=== PATIENT | male | born 1980 | race African-American/Black ===

== ENCOUNTER 2019-07-19 19:53 | Outpatient (CLI) | payer MEDICARE, MEDICAID ==
[~2019-07-19 19:53] MED LIST: ACETAMINOPHEN 325 MG TABLET PO PRN; DIPHENHYDRAMINE HCL 25 MG CAPSULE PO PRN; FUROSEMIDE INJ/PF 20 MG/2 ML SDV IV PRN
[2019-07-19] MEDS ORDERED: ACETAMINOPHEN 325 MG TABLET PO PRN (21:19)
[2019-07-19] MEDS ORDERED: DIPHENHYDRAMINE HCL 25 MG CAPSULE PO PRN (21:20)
[2019-07-19] MEDS ORDERED: FUROSEMIDE INJ/PF 40 MG/4 ML SDV IV PRN (21:21)
[2019-07-19 21:38] LABS: HEMATOCRIT 19.1 % (37.9-51.0); MEAN CORPUSCULAR HEMOGLOBIN 30.1 pg (27.0-33.4); MEAN CORPUSCULAR HGB CONC 33.3 g/dL (32.0-36.0); MEAN CORPUSCULAR VOLUME 91 fl (80-97); PLATELET COUNT 180 10^3/uL (150-450); RED BLOOD COUNT 2.11 10^6/uL (4.35-5.55); RED CELL DISTRIBUTION WIDTH 15.4 % (11.5-14.0); WHITE BLOOD COUNT 7.4 10^3/uL (4.0-10.5)
[2019-07-19 21:43] LABS: HEMOGLOBIN 6.4 g/dL (13.5-17.0)
[2019-07-20] MEDS ORDERED: FUROSEMIDE INJ/PF 40 MG/4 ML SDV ONE (03:26)
[2019-07-20 08:45] VITALS: BP 152/95
== END 2019-07-20 10:29 | disposition home or self-care (01) ==
LOC: SP 19:53 → UNDOADMIN 20:15 → EH 20:15 → 4W 20:17 → EH 20:17 → 4W 21:39 → SP 07-20 10:29
PROVIDERS: ATTEND Internal Medicine Nephrology
DX: N18.6 End stage renal disease (principal); D63.1 Anemia in chronic kidney disease
CPT/HCPCS: 86900; 86901; 36415; 36430; 86850; 86920; 96374; P9016; J1940

== ENCOUNTER 2019-08-06 12:52 | Inpatient (IN) | payer MEDICARE, MEDICAID ==
[2019-08-06] MEDS: MIDAZOLAM 2 MG/2 ML INJ ONE ×2 (10:55→22:55)
[2019-08-06 13:27] LABS: MEAN CORPUSCULAR HEMOGLOBIN 30.2 pg (27.0-33.4); MEAN CORPUSCULAR HGB CONC 33.1 g/dL (32.0-36.0); MEAN CORPUSCULAR VOLUME 91 fl (80-97); PLATELET COUNT 119 10^3/uL (150-450); RED BLOOD COUNT 2.53 10^6/uL (4.35-5.55); WHITE BLOOD COUNT 15.1 10^3/uL (4.0-10.5)
[2019-08-06] MEDS ORDERED: ASPIRIN 81 MG TABLET, CHEWABLE PO ONE (13:29)
[2019-08-06 13:33] LABS: HEMOGLOBIN 7.6 g/dL (13.5-17.0)
[2019-08-06] MEDS ORDERED: ONDANSETRON HCL INJ/PF 4 MG/2 ML SDV IV ONE (13:35)
--- NOTE | 2019-08-06 13:36 | ER Document Report ---
ED Cardiac - General Chief Complaint: Chest Pain Stated Complaint: CHEST PAIN Time Seen by Provider: 08/06/19 13:17 Notes: Patient is a 39-year-old male who presents to the emergency department with a chief complaint of chest pain. Patient states that his chest pain is in the mid left side of his chest. It does not radiate. Patient has had a cough for the past 2 to 3 days. He denies any fever. Patient is a dialysis patient and he missed last Tuesday's dialysis. He went into dialysis today and due to his blood pressure being elevated, he was referred here to the emergency department. Patient also states that he is short of breath. He did vomit once. His oxygen saturation via EMS was 88 on room air. He was placed on 3 L nasal cannula and his oxygen saturation came up. Patient does not wear oxygen on daily basis. TRAVEL OUTSIDE OF THE [place] IN LAST 30 DAYS: No - Related Data Allergies/Adverse Reactions: No Known Drug Allergies Allergy (Verified 04/06/19 03:30) Past Medical History - General Information source: Patient - Social History Smoking Status: Unknown if Ever Smoked Family History: Reviewed & Not Pertinent - Past Medical History Cardiac Medical History: Reports: Hx Congestive Heart Failure Endocrine Medical History: Reports: Hx Diabetes Mellitus Type 1, Hx Diabetes Mellitus Type 2 Renal/ Medical History: Reports: Hx End Stage Renal Disease, Hx Peritoneal Dialysis Past Surgical History: Reports: Hx Vascular Surgery - Left antecubital graft Review of Systems - Review of Systems Notes: REVIEW OF SYSTEMS: CONSTITUTIONAL : Denies recent illness. Denies recent unintentional weight loss. Denies fever, chills, or sweats. EENT: Denies eye, ear, throat, or mouth pain, discharge, or symptoms. Denies nasal or sinus congestion. CARDIOVASCULAR: See HPI. RESPIRATORY: See HPI. GASTROINTESTINAL: See HPI. GENITOURINARY: Denies difficulty urinating, burning, blood in urine, urgency or frequency. MUSCULOSKELETAL: Denies neck and back pain. Denies joint pain or swelling. SKIN: Denies rash, itchiness, or lesions HEMATOLOGIC : Denies easy bruising or bleeding. LYMPHATIC: Denies swollen, painful, enlarged glands. NEUROLOGICAL: Denies no numbness or tingling denies weakness. Denies headache. Denies altered mental status. Denies alteration in speech. PSYCHIATRIC: Denies stress, anxiety, alteration in sleep patterns, or depression. All other systems reviewed and negative. Physical Exam - Vital signs Vitals: Pulse Ox 89 L 08/06/19 13:03 - Notes Notes: PHYSICAL EXAMINATION: GENERAL: Appears well, healthy, well-nourished, mild distress. HEAD: Normocephalic, atraumatic. EYES: PERRL, conjunctiva normal, all extraocular movements intact, sclera nonicteric ENT: Moist mucous membranes. NECK: Supple, no noticeable swelling, redness, rash. Normal range of motion. LUNGS: Diminished breath sounds in the bases. CARDIOVASCULAR: S1-S2, regular rate, regular rhythm. Radial pulses 2+, normal. ABDOMEN: Normoactive bowel sounds. Soft, nontender, no guarding, no rebound tenderness, and no masses palpated. EXTREMITIES: Normal strength and range of motion, no pitting or edema. No cyanosis. NEUROLOGICAL: Moves all extremities upon command. Strength 5/5 in all extremities. PSYCH: Normal mood, normal affect. SKIN: Warm, dry. No rash, lesions, ulcerations noted. Normal skin turgor. Course - Re-evaluation Re-evalutation: 08/06/19 14:25 Patient's hematology shows a leukocytosis of 15,000. Due to him having possible infiltrates on chest x-ray, will treat him with antibiotics. Troponin is unrema rkable. Patient hemoglobin is 7.6 and hematocrit is 23. Patient with a blood transfusion during dialysis today. His chemistries show hyperkalemia potassium of 5.7. This is most likely due to him missing his dialysis. His creatinine and BUN are elevated, as he has end-stage renal disease. 08/06/19 14:[address] Rai, the clay worker. Patient would be dialyzed today. I then subsequently spoke with Dr. Chirinos. Patient will be admitted. - Vital Signs Vital signs: Temp Pulse Resp BP Pulse Ox 100.0 F 87 16 185/89 H 95 08/07/19 08:00 08/07/19 08:50 08/07/19 08:50 08/07/19 08:47 08/07/19 08:50 - Laboratory Result Diagrams: 08/07/19 05:24 08/07/19 05:24 Laboratory results interpreted by me: 08/06/19 08/06/19 08/06/19 13:05 13:05 13:05 WBC 15.1 H RBC 2.53 L Hgb 7.6 L Hct 23.0 L RDW 16.0 H Plt Count 119 L Seg Neuts % (Manual) 96 H Lymphocytes % (Manual) 0 L Abs Neuts (Manual) 14.5 H Abs Lymphs (Manual) 0.0 L ABG pH ABG pO2 ABG HCO3 ABG Total CO2 ABG O2 Saturation Potassium 5.7 H Carbon Dioxide 19 L BUN 102 H Creatinine 15.64 H Est GFR ( Amer) 4 L Est GFR (MDRD) Non-Af 3 L Glucose 144 H Calcium 8.3 L Direct Bilirubin 0.6 H Creatine Kinase 770 H NT-Pro-B Natriuret Pep 08/06/19 08/06/19 13:05 14:41 WBC RBC Hgb Hct RDW Plt Count Seg Neuts % (Manual) Lymphocytes % (Manual) Abs Neuts (Manual) Abs Lymphs (Manual) ABG pH 7.31 L ABG pO2 62.0 L ABG HCO3 18.0 L ABG Total CO2 19.2 L ABG O2 Saturation 90.0 L Potassium Carbon Dioxide BUN Creatinine Est GFR ( Amer) Est GFR (MDRD) Non-Af Glucose Calcium Direct Bilirubin Creatine Kinase NT-Pro-B Natriuret Pep 10380 H - EKG Interpretation by Me Additional EKG results interpreted by me: 08/06/19 14:03 Sinus rhythm. Rate 83. CT 156; QRS 86; QT 392; QTc 461. No ST elevations or depressions noted. No acute change from previous EKG dated 04/06/2019. Discharge - Discharge Clinical Impression: End-stage renal disease on hemodialysis Pneumonia Qualifiers: Pneumonia type: due to unspecified organism Laterality: unspecified laterality Lung location: unspecified part of lung Qualified Code(s): J18.9 - Pneumonia, unspecified organism Condition: Stable Disposition: ADMITTED INPATIENT Admitting Provider: Taran (Hospitalist) Unit Admitted: Telemetry
[2019-08-06 13:49] LABS: ABSOLUTE MONOCYTES # (MANUAL) 0.6 10^3/uL (0.1-1.4); ANISOCYTOSIS 1+; BASOPHILS % (MANUAL) 0 % (0-2); EOSINOPHILS % (MANUAL) 0 % (0-6); LYMPHOCYTES % (MANUAL) 0 % (13-45); MONOCYTES % (MANUAL) 4 % (3-13); POIKILOCYTOSIS 1+; SEGMENTED NEUTROPHILS % (MAN) 96 % (42-78); TOTAL CELLS COUNTED 100
[2019-08-06 13:50] LABS: BURR CELLS 1+; OVALOCYTES 1+; PLATELET COMMENT DECREASED
[2019-08-06 13:54] LABS: ALBUMIN 4.2 g/dL (3.5-5.0); ALKALINE PHOSPHATASE 63 U/L (38-126); ANION GAP 19 (5-19); ASPARTATE AMINO TRANSFERASE 26 U/L (17-59); BILIRUBIN,DIRECT 0.6 mg/dL (0.0-0.4); BILIRUBIN,TOTAL 0.7 mg/dL (0.2-1.3); BLOOD UREA NITROGEN 102 mg/dL (7-20); CALCIUM 8.3 mg/dL (8.4-10.2); CARBON DIOXIDE 19 mmol/L (22-30); CHLORIDE 104 mmol/L (98-107); GLUCOSE 144 mg/dL (75-110); POTASSIUM 5.7 mmol/L (3.6-5.0); TOTAL PROTEIN 7.3 g/dL (6.3-8.2)
--- NOTE | 2019-08-06 14:05 | RADIOLOGY REPORT (SQ) ---
EXAM DESCRIPTION: CHEST SINGLE VIEW COMPLETED DATE/TIME: 08/06/2019 1:51 pm REASON FOR STUDY: cough; shortness of breath COMPARISON: AP view of the chest from 04/06/2019. EXAM PARAMETERS: NUMBER OF VIEWS: One view. TECHNIQUE: Single frontal radiographic view of the chest acquired. RADIATION DOSE: NA LIMITATIONS: None. FINDINGS: LUNGS AND PLEURA: Acute patchy bilateral and bibasilar predominant parenchymal opacities. There is no sizable pleural effusion or pneumothorax. MEDIASTINUM AND HILAR STRUCTURES: No mediastinal hilar contour abnormality. HEART AND VASCULAR STRUCTURES: Stable cardiomegaly. The pulmonary vasculature is distended. BONES: No acute findings. HARDWARE: The tip of the tunneled right IJ hemodialysis catheter projects at the level of the cavoatr ial junction. OTHER: Low inspiratory lung volumes. IMPRESSION: Acute patchy bilateral and basilar predominant parenchymal opacities. Differential cons iderations include pulmonary edema multifocal pneumonia. TECHNICAL DOCUMENTATION: JOB ID: [id number] [employer]- All Rights Reserved Reading location - IP/workstation name: [email or web address]
[2019-08-06] MEDS ORDERED: LEVOFLOXACIN 750 MG/D5W RTU 750 MG/150 ML RTUPB IV ONE (14:32)
[2019-08-06] MEDS ORDERED: MAGNESIUM HYDROXIDE SUSP 30 ML UDCUP PO PRN (14:57)
[2019-08-06] MEDS ORDERED: ZOLPIDEM TARTRATE 5 MG TABLET PO PRN (14:57)
[2019-08-06] MEDS ORDERED: ACETAMINOPHEN 325 MG TABLET PO PRN (14:57)
[2019-08-06] MEDS ORDERED: ALBUTEROL SULFATE 0.083% NEB 2.5 MG/3 ML AMPUL NEB PRN (14:57)
[2019-08-06] MEDS ORDERED: OXYCODONE-ACETAMINOPHEN 5-325 MG TABLET PO PRN (14:57)
[2019-08-06] MEDS ORDERED: MAG HYDROX/AL HYDROX/SIMETH SUSP 30 ML UDCUP PO PRN (14:57)
[2019-08-06] MEDS ORDERED: ONDANSETRON HCL INJ/PF 4 MG/2 ML SDV IV PRN (14:57)
--- NOTE | 2019-08-06 15:07 | EKG REPORT ---
SEVERITY:- BORDERLINE ECG - SINUS RHYTHM PROBABLE LEFT ATRIAL ABNORMALITY : Confirmed by: Eve Art MD 06-Aug-2019 15:07:10
--- NOTE | 2019-08-06 15:10 | PDOC H&P ---
History of Present Illness Admission Date/PCP: 08/06/19 14:51 Dr. Rai Patient complains of: Shortness of breath, chest pain History of Present Illness: BROOK LOMBARDI is a 39 year old male who presented to the ER with achievement of chest pain. Patient 39-year-old who has end-stage renal disease requiring hemodialysis and states he had a cough for the last 2 to 3 days. His chest pain is reproducible he denies any fever or other complaints. Patient did miss dialysis this past Tuesday was found to have an O2 sat of 88% on room air via EMS. Patient does not wear oxygen on a daily basis. Patient is noncompliant with medical regimen. No treatment prior to arrival all activities been aggravating factor. Past Medical History Cardiac Medical History: Reports: Congestive Heart Failure Endocrine Medical History: Reports: Diabetes Mellitus Type 1, Diabetes Mellitus Type 2 Renal/ Medical History: Reports: End Stage Renal Disease Hematology: Reports: Anemia Past Surgical History Past Surgical History: Reports: Vascular Surgery - Left antecubital graft Social History Information Source: Patient Lives with: Family Smoking Status: Never Smoker Electronic Cigarette use?: No Frequency of Alcohol Use: None Hx Recreational Drug Use: No Drugs: None Hx Prescription Drug Abuse: No - Advance Directive Resuscitation Status: Full Code Family History Family History: DM, Hypertension Parental Family History Reviewed: Yes Children Family History Reviewed: Yes Sibling(s) Family History Reviewed.: Yes Medication/Allergy Home Medications: Albuterol Sulfate [Proair HFA Inhalation Aerosol 8.5 gm MDI] 1 puff IH QIDP PRN 04/06/19 B,C/Ferrous Fum/FA/D3/Zinc Ox [Prorenal Multivitamin Tablet] 1 tab PO DAILY 04/06/19 Cyanocobalamin (Vitamin B-12) [Vitamin B-12 1000 mcg Tablet] 1 tab PO DAILY 04/06/19 Lidocaine/Prilocaine [Emla Cream] 1 applic TP MOWEFR@0800 04/06/19 Nitroglycerin [Nitrostat 0.4 mg (1/150 Gr) Tabs 25/Bottle] 1 tab SL Q5MP PRN 04/06/19 Acetaminophen [Tylenol 325 mg Tablet] 650 mg PO Q4HP PRN tablet 04/07/19 Amlodipine Besylate [Norvasc 10 mg Tablet] 10 mg PO DAILY #30 tablet 08/03/19 Aspirin [Aspirin 81 mg Chewable Tablet] 81 mg PO DAILY #90 tab.chew 04/07/19 Calcium Acetate [Phoslo 667 mg Capsule] 667 mg PO MEALS #90 capsule 04/07/19 Carvedilol [Coreg 25 mg Tablet] 1 tab PO Q12 #60 tablet 04/07/19 Cinacalcet HCl [Sensipar 30 mg Tablet] 30 mg PO WSUPPER #30 tablet 04/07/19 Clonidine HCl [Catapres 0.1 mg Tablet] 0.1 mg PO Q6 #120 tablet 04/07/19 Docusate Sodium [Colace 100 mg Capsule] 100 mg PO BID capsule 04/07/19 Hydralazine HCl [Apresoline 25 mg Tablet] 50 mg PO Q6 #240 tablet 04/07/19 Isosorbide Mononitrate [Imdur 60 mg Tablet.er] 120 mg PO DAILY #30 tab.er.24h 04/07/19 Sucroferric Oxyhydroxide [Velphoro] 1,000 mg PO MEALS #90 tab.chew 04/07/19 Valsartan [Diovan] 320 mg PO DAILY #30 tablet 04/07/19 Allergies/Adverse Reactions: No Known Drug Allergies Allergy (Verified 04/06/19 03:30) Review of Systems Constitutional: ABSENT: chills, fever(s), headache(s), weight gain, weight loss Eyes: ABSENT: visual disturbances Ears: ABSENT: hearing changes Cardiovascular: PRESENT: chest pain. ABSENT: dyspnea on exertion, edema, orthropnea, palpitations Respiratory: PRESENT: cough, dyspnea, sputum. ABSENT: hemoptysis Gastrointestinal: ABSENT: abdominal pain, constipation, diarrhea, hematemesis, hematochezia, nausea, vomiting Genitourinary: ABSENT: dysuria, hematuria Musculoskeletal: ABSENT: joint swelling Integumentary: ABSENT: rash, wounds Neurological: ABSENT: abnormal gait, abnormal speech, confusion, dizziness, focal weakness, syncope Psychiatric: ABSENT: anxiety, depression, homidical ideation, suicidal ideation Endocrine: ABSENT: cold intolerance, heat intolerance, polydipsia, polyuria Hematologic/Lymphatic: ABSENT: easy bleeding, easy bruising Physical Exam Vital Signs: Temp Pulse Resp BP Pulse Ox 20 129/118 H 92 08/06/19 13:07 08/06/19 14:01 08/06/19 14:01 Intake & Output 08/05/19 08/06/19 08/07/19 06:59 06:59 06:59 Weight 117.934 kg General appearance: PRESENT: no acute distress, well-developed, well-nourished Head exam: PRESENT: atraumatic, normocephalic Eye exam: PRESENT: conjunctiva pink, EOMI, PERRLA. ABSENT: scleral icterus Ear exam: PRESENT: normal external ear exam Mouth exam: PRESENT: moist, tongue midline Neck exam: ABSENT: carotid bruit, JVD, lymphadenopathy, thyromegaly Respiratory exam: PRESENT: decreased breath sounds, rales, rhonchi, symmetrical, tachypnea, unlabored. ABSENT: wheezes Cardiovascular exam: PRESENT: RRR. ABSENT: diastolic murmur, rubs, systolic murmur Pulses: PRESENT: normal dorsalis pedis pul Vascular exam: PRESENT: normal capillary refill GI/Abdominal exam: PRESENT: normal bowel sounds, soft. ABSENT: distended, guarding, mass, organolmegaly, rebound, tenderness Rectal exam: PRESENT: deferred Extremities exam: PRESENT: full ROM. ABSENT: calf tenderness, clubbing, pedal edema Neurological exam: PRESENT: alert, awake, oriented to person, oriented to place, oriented to time, oriented to situation, CN II-XII grossly intact. ABSENT: motor sensory deficit Psychiatric exam: PRESENT: appropriate affect, normal mood. ABSENT: homicidal ideation, suicidal ideation Skin exam: PRESENT: dry, intact, warm. ABSENT: cyanosis, rash Results Laboratory Results: 08/06/19 13:05 08/06/19 13:05 08/06/19 08/06/19 08/06/19 13:05 13:05 13:05 WBC 15.1 H RBC 2.53 L Hgb 7.6 L Hct 23.0 L MCV 91 MCH 30.2 MCHC 33.1 RDW 16.0 H Plt Count 119 L Seg Neutrophils % Not Reportable Sodium 142.2 Potassium 5.7 H Chloride 104 Carbon Dioxide 19 L Anion Gap 19 BUN 102 H Creatinine 15.64 H Est GFR ( Amer) 4 L Glucose 144 H Calcium 8.3 L Total Bilirubin 0.7 AST 26 Alkaline Phosphatase 63 Total Protein 7.3 Albumin 4.2 Lipase 97.6 12/02/19 12/02/19 12/02/19 13:05 13:05 13:05 Creatine Kinase 770 H Troponin I 0.052 NT-Pro-B Natriuret Pep 98504 H Impressions: Chest X-Ray 08/06/19 13:28 IMPRESSION: Acute patchy bilateral and basilar predominant parenchymal opacities. Differential considerations include pulmonary edema multifocal pneumonia. Assessment and Plan - Diagnosis (1) Healthcare-associated pneumonia Is this a current diagnosis for this admission?: Yes Plan: 08/06/2019-as patient is a hemodialysis patient I will place patient on healthcare associated pneumonia protocol including vancomycin and Zosyn per pharmacy dosing. Will await cultures. Bronchodilators every 4 hours as needed. Duo nebs every 12 hours. I do not suspect he needs steroids at this time so we will hold these. Patient will be dialyzed today in hopes that this will take care of his congestive heart failure and make breathing easier. (2) End-stage renal disease on hemodialysis Is this a current diagnosis for this admission?: Yes Plan: 08/06/2019-dialysis today be followed by Dr. Rai (3) Anemia Is this a current diagnosis for this admission?: Yes Plan: 08/06/2019-chronic stable no symptomology at this time. (4) Atypical chest pain Is this a current diagnosis for this admission?: Yes Plan: 08/06/2019-costochondral in nature. Will follow (5) Uncontrolled hypertension Is this a current diagnosis for this admission?: Yes Plan: 08/06/2019-patient takes a wide variety of home antihypertensives. We will continue all. (6) Hyperkalemia Is this a current diagnosis for this admission?: Yes Plan: 08/06/2019-dialysis day repeat BMP in a.m. - Time Time Spent with patient: 35 or more minutes - Inpatient Certification Based on my medical assessment, after consideration of the patient's comorbidities, presenting symptoms, or acuity I expect that the services needed warrant INPATIENT care.: Yes I certify that my determination is in accordance with my understanding of Medicare's requirements for reasonable and necessary INPATIENT services [42 CFR 412.3e].: Yes Medical Necessity: Significant Comorbidiites Make Outpatient Treatment Too Risky, Need Close Monitoring Due to Risk of Patient Decompensation, Need for IV Antibiotics
[2019-08-06] MEDS ORDERED: VANCOMYCIN HCL 0 MG in DEXTROSE 5%-WATER 250 ML IV NR (15:15)
[2019-08-06 15:22] LABS: ARTERIAL BLOOD BASE EXCESS -7.5 mmol/L; ARTERIAL BLOOD PCO2 36.5 mmHg (35-45); ARTERIAL BLOOD PH 7.31 (7.35-7.45); ARTERIAL BLOOD TOTAL CO2 19.2 mmol/L (23-27)
[2019-08-06 15:29] LABS: ARTERIAL BLOOD FIO2 3LNC
[2019-08-06] MEDS ORDERED: EPOETIN ALFA-EPBX 2,000 UNIT, EPOETIN ALFA-EPBX 3,000 UNIT, EPOETIN ALFA-EPBX 20,000 UN... IV PRN ×4 (15:57)
[2019-08-06] MEDS ORDERED: ACETAMINOPHEN 325 MG TABLET PO ONE (17:45)
[2019-08-06] MEDS ORDERED: PIPERACILLIN SODIUM/TAZOBACTAM 3.375 GM in NORMAL SALINE 100 ML IV SCH (18:00)
[2019-08-06] MEDS ORDERED: PIPERACILLIN SODIUM/TAZOBACTAM 2.25 GM in NORMAL SALINE 50 ML IV SCH ×2 (18:00→23:00)
[2019-08-06] MEDS ORDERED: CLONIDINE HCL 0.1 MG TABLET PO ONE (18:15)
[2019-08-06] MEDS ORDERED: HEPARIN SOD (PORCINE) 1,000 UNIT/ML 10 ML VIAL IV PRN (18:38)
--- NOTE | 2019-08-06 18:46 | PDOC CONSULTATION ---
Consultation Consult Date: 08/06/19 Provider Consulted: [place] PAT Consult reason:: ESRD for hemodialysis in the setting of heart failure/bronchopneumonia History of Present Illness Admission Date/PCP: 08/06/19 14:51 History of Present Illness: BROOK LOMBARDI is a 39 year old male With a past history of ESRD on hemodialysis in the background of hypertension, noncompliant with diet and medications who presents to the emergency department with a chief complaint of coughing of green expectoration foe 2-3 days, shortness of breath and chest pain. Patient states that his chest pain is in the mid left side of his chest. It is pleuritic in nature and gets worse with coughing or deep breathing. It does not radiate. He denies any fever. Patient missed last Tuesday's dialysis. He went into dialysis today and due to his blood pressure being elevated, he was referred here to the emergency department. Currently he is being seen while undergoing dialysis. He looks comfortable though his blood pressures are high. He says he has his left/xiphisternal pain that gets worse if he coughs. Does not have any clear reason for missing his last dialysis. Chest x-ray on review shows bibasilar opacities suggestive of pulmonary edema as well as bronchopneumonia. Labs and medications were reviewed. Dialysis orders were reviewed with the treating dialysis nurse. Past Medical History Cardiac Medical History: Reports: Hypertension-primary Endocrine Medical History: Reports: Diabetes Mellitus Type 2 Renal/ Medical History: Reports: End Stage Renal Disease, Secondary Hyperparathyroidism Denies: Hematuria Hematology Medical History: Reports Anemia of Chronic Kidney Disease Past Surgical History Past Surgical History: Reports: Vascular Surgery - Left antecubital graft Social History Lives with: Family Smoking Status: Never Smoker Electronic Cigarette use?: No Frequency of Alcohol Use: None Hx Recreational Drug Use: No Drugs: None Hx Prescription Drug Abuse: No - Advance Directive Resuscitation Status: Full Code Family History Parental Family History Reviewed: No Children Family History Reviewed: No Sibling(s) Family History Reviewed.: No Medication/Allergy Home Medications: Amlodipine Besylate [Norvasc 10 mg Tablet] 10 mg PO DAILY 08/06/19 Aspirin [Adult Low Dose Aspirin EC] 81 mg PO DAILY 08/06/19 Atorvastatin Calcium [Lipitor 10 mg Tablet] 10 mg PO QHS 08/06/19 Carvedilol 25 mg PO Q12 08/06/19 Clonidine HCl [Catapres 0.3 mg Tablet] 0.3 mg PO TID 08/06/19 Hydralazine HCl [Apresoline 50 mg Tablet] 50 mg PO TID 08/06/19 Ipratropium/Albuterol Sulfate [Duoneb 3 ml Ampul] 3 ml NEB RTQ8HP PRN 08/06/19 Isosorbide Mononitrate [Imdur 60 mg Tablet.er] 60 mg PO DAILY 08/06/19 Pantoprazole Sodium 40 mg PO BID 08/06/19 Sevelamer Carbonate [Renvela] 800 mg PO BID 08/06/19 Allergies/Adverse Reactions: No Known Drug Allergies Allergy (Verified 04/06/19 03:30) Review of Systems Constitutional: PRESENT: anorexia, fatigue, weakness. ABSENT: chills, fever(s), night sweats Nose, Mouth, and Throat: ABSENT: mouth pain, sore throat Cardiovascular: PRESENT: chest pain, dyspnea on exertion. ABSENT: edema, orthropnea, palpitations Respiratory: PRESENT: cough, dyspnea. ABSENT: hemoptysis Gastrointestinal: ABSENT: abdominal pain, bloating, coffee ground emesis, constipation, diarrhea, dysphagia Genitourinary: ABSENT: dysuria, hematuria Musculoskeletal: ABSENT: deformity, joint swelling Integumentary: ABSENT: lesions, pruritus, rash Neurological: ABSENT: abnormal speech, confusion, convulsions, focal weakness Hematologic/Lymphatic: ABSENT: easy bruising, lymphadenopathy Physical Exam Vital Signs: Temp Pulse Resp BP Pulse Ox 20 129/118 H 92 08/06/19 13:07 08/06/19 14:01 08/06/19 14:01 Intake & Output 08/05/19 08/06/19 08/07/19 06:59 06:59 06:59 Weight 117.934 kg General appearance: PRESENT: no acute distress Eye exam: PRESENT: EOMI, PERRLA Ear exam: PRESENT: normal external ear exam Mouth exam: PRESENT: moist, neck supple Neck exam: ABSENT: lymphadenopathy, thyromegaly, tracheal deviation Respiratory exam: PRESENT: chest wall tenderness - On the left lower costochondral junctions, crackles, decreased breath sounds, rhonchi. ABSENT: clear to auscultation jerald Cardiovascular exam: PRESENT: +S1, +S2 GI/Abdominal exam: PRESENT: normal bowel sounds, soft. ABSENT: organomegaly, tenderness Extremities exam: PRESENT: +1 edema Neurological exam: PRESENT: alert, altered, awake, oriented to person, oriented to place, oriented to time Psychiatric exam: PRESENT: appropriate affect Skin exam: ABSENT: erythema, mottled, rash Results Laboratory Results: 08/06/19 13:05 08/06/19 13:05 08/06/19 08/06/19 08/06/19 13:05 13:05 13:05 WBC 15.1 H RBC 2.53 L Hgb 7.6 L Hct 23.0 L MCV 91 MCH 30.2 MCHC 33.1 RDW 16.0 H Plt Count 119 L Seg Neutrophils % Not Reportable Carbonic Acid HCO3/H2CO3 Ratio ABG pH ABG pCO2 ABG pO2 ABG HCO3 ABG O2 Saturation ABG Base Excess FiO2 Sodium 142.2 Potassium 5.7 H Chloride 104 Carbon Dioxide 19 L Anion Gap 19 BUN 102 H Creatinine 15.64 H Est GFR ( Amer) 4 L Glucose 144 H Calcium 8.3 L Total Bilirubin 0.7 AST 26 Alkaline Phosphatase 63 Total Protein 7.3 Albumin 4.2 Lipase 97.6 08/06/19 14:41 WBC RBC Hgb Hct MCV MCH MCHC RDW Plt Count Seg Neutrophils % Carbonic Acid 1.10 HCO3/H2CO3 Ratio 16:1 ABG pH 7.31 L ABG pCO2 36.5 ABG pO2 62.0 L ABG HCO3 18.0 L ABG O2 Saturation 90.0 L ABG Base Excess -7.5 FiO2 3LNC Sodium Potassium Chloride Carbon Dioxide Anion Gap BUN Creatinine Est GFR ( Amer) Glucose Calcium Total Bilirubin AST Alkaline Phosphatase Total Protein Albumin Lipase 08/06/19 08/06/19 08/06/19 13:05 13:05 13:05 Creatine Kinase 770 H Troponin I 0.052 NT-Pro-B Natriuret Pep 27827 H Impressions: Chest X-Ray 08/06/19 13:28 IMPRESSION: Acute patchy bilateral and basilar predominant parenchymal opacities. Differential considerations include pulmonary edema multifocal pneumonia. Assessment & Plan - Diagnosis (1) End-stage renal disease on hemodialysis Is this a current diagnosis for this admission?: Yes Plan: Patient currently undergoing dialysis. Vital signs are not stable as blood pressure is very high. We will treat him with clonidine. Also treat his pain which may also help his blood pressure get better he is continuing on nasal cannula oxygen and remains saturated. Plan to remove at least 5 L of fluid. Once the fluid is removed and his congestive heart failure is better hopefully his blood pressure should also improve towards the end of dialysis.Dialysis orders were reviewed with the treating dialysis nurse. (2) CHF (congestive heart failure) Plan: See the response to hemodialysis. Advised proper dietary and fluid restrictions. (3) Healthcare-associated pneumonia Is this a current diagnosis for this admission?: Yes (4) Hyperkalemia Is this a current diagnosis for this admission?: Yes Plan: As per hospitalist. On IV antibiotics. (5) Anemia Is this a current diagnosis for this admission?: Yes Plan: Withhold erythropoietin given his severe hypertension. (6) Uncontrolled hypertension Is this a current diagnosis for this admission?: Yes Plan: Treat with clonidine and see the response to ultrafiltration on dialysis.
[2019-08-06] MEDS ORDERED: DESMOPRESSIN ACETATE INJ 4 MCG/1 ML AMPULE IV ONE (20:00)
[2019-08-06] MEDS ORDERED: IPRATROPIUM/ALBUTEROL 0.5-2.5 MG/3 ML AMPUL NEB SCH (20:00)
[2019-08-06] MEDS ORDERED: VANCOMYCIN HCL 2,000 MG in DEXTROSE 5%-WATER 500 ML IV ONE (20:00)
[2019-08-06] MEDS ORDERED: DEXTROSE 50%-WATER 25 GM/50 ML DISP.SYRIN IV PRN ×2 (20:12)
[2019-08-06] MEDS ORDERED: DEXTROSE 40% GEL 15 GM TUBE PO PRN ×2 (20:12)
[2019-08-06] MEDS ORDERED: GLUCAGON,HUMAN RECOMB 1 MG INJ SUBCUT PRN (20:12)
[2019-08-06] MEDS ORDERED: DIPHENHYDRAMINE HCL 50 MG/ML VIAL ONE (22:03)
[2019-08-06] MEDS ORDERED: EPINEPHRINE INJ 1 MG/10 ML DISP.SYRIN ONE (22:04)
[2019-08-06] MEDS ORDERED: GLUCAGON,HUMAN RECOMB 1 MG INJ ONE (22:04)
[2019-08-06] MEDS ORDERED: FENTANYL CITRATE INJ/PF 100 MCG/2 ML AMPUL ONE (22:04)
[2019-08-06] MEDS ORDERED: ONDANSETRON HCL INJ/PF 4 MG/2 ML SDV ONE (22:04)
[2019-08-06] MEDS ORDERED: NALOXONE HCL INJ/PF 0.4 MG/1 ML SDV ONE (22:04)
[2019-08-06] MEDS ORDERED: FLUMAZENIL INJ 0.5 MG/5 ML VIAL ONE (22:04)
[2019-08-06 23:09] LABS: HEMATOCRIT 21.7 % (37.9-51.0); MEAN CORPUSCULAR HEMOGLOBIN 29.6 pg (27.0-33.4); MEAN CORPUSCULAR HGB CONC 33.4 g/dL (32.0-36.0); MEAN CORPUSCULAR VOLUME 89 fl (80-97); RED BLOOD COUNT 2.45 10^6/uL (4.35-5.55); WHITE BLOOD COUNT 23.9 10^3/uL (4.0-10.5)
[2019-08-06 23:10] LABS: INTERNATIONAL RATION (INR) 1.32; PROTHROMBIN TIME 16.5 SEC (11.4-15.4)
[2019-08-06 23:11] LABS: PARTIAL THROMBOPLASTIN TIME 34.1 SEC (23.5-35.8)
[2019-08-06 23:18] LABS: HEMOGLOBIN 7.2 g/dL (13.5-17.0)
--- NOTE | 2019-08-06 23:24 | Operative Report ---
Operative Report DATE OF SURGERY: 08/06/19 PREOPERATIVE DIAGNOSIS: 1. Acute upper GI bleed. 2. Hematemesis. 3. End-st age renal failure POSTOPERATIVE DIAGNOSIS: Same with. 1. Sequential submucosal hematomas of the mid and distal esophagus. 2. Diffuse gastritis OPERATION: 1. Esophagogastroduodenoscopy. 2. Gastric mucosal biopsy SURGEON: SAUL WALLS ANESTHESIA: Moderate Sedation TISSUE REMOVED OR ALTERED: Mucosal biopsy COMPLICATIONS: None INTRAOPERATIVE FINDINGS: See below PROCEDURE: Monitoring devices were attached to the patient in the ICU 605. Patient was placed in the semirecumbent left lateral position. Surgical plan surgical timeout conducted. Flexible upper endoscope was advanced to the oropharynx, down the esophagus through the stomach into the duodenum. The first and second portion of the duodenum were normal. The scope was brought back through the pylorus several times checking for any pathology and there was none. The stomach was significant for diffuse, acute gastritis. Unfortunately the printer was not working so no photos were retained for the record. There was no obvious ulcer tumor bleeding or polyp. A random biopsy of the gastric antrum was performed with a cold forceps device and sent for ROSALEE testing. Again no evidence of active bleeding at this time. The scope was brought back through the GE junction which was at approximately 41 cm from the incisor. Just above the Z line was a 1 to 2 cm area of likely recent clot, not actively bleeding. However this could have been an area of mucosal bleeding. The area was grayish-purple. It was not actively bleeding however no biopsy was performed of this area. It did not appear to be malignant. There was no evidence of narrowing of the esophagus. It also have been a small Sharon-Thakkar tear. The remainder the esophagus was unremarkable until approximately 20 cm from the incisor. There was another area of submucosal hemorrhage, small less than a centimeter. Again not actively bleeding at this time. Scope was withdrawn the patient's oropharynx. He tolerated procedure well. He did remain hypertensive throughout the case. Impression: No active bleeding at the time of the upper endoscopy; potential recent bleeding sources include mid esophagus, distal esophagus and gastric body. Recommendations: Supportive therapy, control hypertension, antacid therapy, await results of CLOtest; all the above reviewed with MANJIT Merritt the intensive care unit
[2019-08-06 23:28] LABS: ALBUMIN 3.9 g/dL (3.5-5.0); ALKALINE PHOSPHATASE 60 U/L (38-126); ANION GAP 16 (5-19); ASPARTATE AMINO TRANSFERASE 25 U/L (17-59); BILIRUBIN,DIRECT 0.4 mg/dL (0.0-0.4); BILIRUBIN,TOTAL 0.8 mg/dL (0.2-1.3); CALCIUM 8.2 mg/dL (8.4-10.2); CARBON DIOXIDE 26 mmol/L (22-30); CHLORIDE 99 mmol/L (98-107); GLUCOSE 119 mg/dL (75-110); TOTAL PROTEIN 6.8 g/dL (6.3-8.2)
[2019-08-06 23:38] LABS: BLOOD UREA NITROGEN 62 mg/dL (7-20); POTASSIUM 4.5 mmol/L (3.6-5.0)
[2019-08-06 23:47] LABS: PLATELET COUNT 92 10^3/uL (150-450)
[2019-08-06 23:49] LABS: ABSOLUTE LYMPHOCYTES# (MANUAL) 1.2 10^3/uL (0.5-4.7); ABSOLUTE MONOCYTES # (MANUAL) 1.7 10^3/uL (0.1-1.4); BAND NEUTROPHILS % (MANUAL) 1 % (3-5); BASOPHILS % (MANUAL) 0 % (0-2); EOSINOPHILS % (MANUAL) 0 % (0-6); LYMPHOCYTES % (MANUAL) 5 % (13-45); MONOCYTES % (MANUAL) 7 % (3-13); SEGMENTED NEUTROPHILS % (MAN) 87 % (42-78); TOTAL CELLS COUNTED 100
[2019-08-06 23:50] LABS: ANISOCYTOSIS 1+; PLATELET COMMENT DECREASED; POIKILOCYTOSIS SLIGHT; SCHISTOCYTES SLIGHT
[2019-08-06 23:51] LABS: OVALOCYTES SLIGHT
[2019-08-07] MEDS ORDERED: PIPERACILLIN SODIUM/TAZOBACTAM 2.25 GM in NORMAL SALINE 50 ML IV ONE (04:00)
[2019-08-07] MEDS ORDERED: NICARDIPINE HCL RTU, ISO-OS 20 MG/200 ML RTUINJ IV ONE (05:31)
[2019-08-07] MEDS: NICARDIPINE HCL RTU, ISO-OS 20 MG/200 ML RTUINJ IV PRN ×4 (05:35→18:38)
[2019-08-07 05:41] LABS: ABSOLUTE RETICS # 0.049 10^6/uL (0.028-0.122); HEMATOCRIT 19.9 % (37.9-51.0); MEAN CORPUSCULAR HEMOGLOBIN 29.8 pg (27.0-33.4); MEAN CORPUSCULAR HGB CONC 33.3 g/dL (32.0-36.0); MEAN CORPUSCULAR VOLUME 89 fl (80-97); RED BLOOD COUNT 2.23 10^6/uL (4.35-5.55); RED CELL DISTRIBUTION WIDTH 15.7 % (11.5-14.0); RETICULOCYTE COUNT (AUTO) 2.21 % (0.66-2.85); WHITE BLOOD COUNT 22.6 10^3/uL (4.0-10.5)
--- NOTE | 2019-08-07 05:51 | CRITICAL CARE ADMISSION REPORT ---
HPI Date:: 08/06/19 Reason for ICU Reason:: Hematemasis. Hypoxia. Hypertension HPI: Per admission H&P "BROOK LOMBARDI is a 39 year old male With a past history of ESRD on hemodialysis in the background of hypertension, noncompliant with diet and medications who presents to the emergency department with a chief complaint of coughing of green expectoration foe 2-3 days, shortness of breath and chest pain. Patient states that his chest pain is in the mid left side of his chest. It is pleuritic in nature and gets worse with coughing or deep breathing. It does not radiate. He denies any fever. Patient missed last Tuesday's dialysis. He went into dialysis today and due to his blood pressure being elevated, he was referred here to the emergency department. Currently he is being seen while undergoing dialysis. He looks comfortable though his blood pressures are high. He says he has his left/xiphisternal pain that gets worse if he coughs. Does not have any clear reason for missing his last dialysis. Chest x-ray on review shows bibasilar opacities suggestive of pulmonary edema as well as bronchopneumonia. Labs and medications were reviewed. Dialysis orders were reviewed with the treating dialysis nurse." Hospitalist called ICU with concerns for hematemasis reported by HD RN during HD session. He was noted to be hypoxic to upper 80s on 4L NC and reporting CP. Of note, SPB was as high as 217 on admission and during the assessment while on HD he was noted to have SBP of ~160. Decision was made to admit pt to ICU service. Dr. Dean was contacted to inform him of pt and his current condition. - Diagnosis/Plan (1) GI bleeding Is this a current diagnosis for this admission?: Yes (2) End-stage renal disease on hemodialysis Is this a current diagnosis for this admission?: Yes (3) Healthcare-associated pneumonia Is this a current diagnosis for this admission?: Yes (4) Hyperkalemia Is this a current diagnosis for this admission?: Yes (5) Anemia Is this a current diagnosis for this admission?: Yes (6) Atypical chest pain Is this a current diagnosis for this admission?: Yes (7) Uncontrolled hypertension Is this a current diagnosis for this admission?: Yes - . Plan Summary: Pulm: * continue on O2 via NC with goal sats >89% - titrate as tolerated * elevate HOB, suction PRN, continue aspiration precautions with hematemasis * reports home inhaler but unsure of name - Q6 duoNeb with Q4 PRN albuterol ordered Neuro: * neuro checks Q2h to assess for acute changes Cardiac: * continue tele monitoring * Hx of HTN on multiple medications - arrived with SBP >200 - Q1h vitals with goal 160-180 * hold antihypertensives at this time and consider IV Cardene if needed while NPO Renal: * Hx of ESRD on HD - missed HD on Tuesday * Trend renal indices, maintain strict I&O, replace lytes PRN GI: * hematemasis - surgery consulted with plans for EGD * DDAVP and protonix IV * Maintain NPO Heme/Onc: * Trend Hgb/Hct - transfuse for Hgb <7.0 * Hold blood thinners with active bleeding ID: * Blood cultures pending - Zosyn and vanco Endo: * Hx of DM - POC q4 with SSI coverage Past Medical History Cardiac Medical History: Reports: Congestive Heart Failure, Hypertension Neurological Medical History: Denies: Seizures Endocrine Medical History: Reports: Diabetes Mellitus Type 1, Diabetes Mellitus Type 2 Renal/ Medical History: Reports: End Stage Renal Disease Hematology: Reports: Anemia Past Surgical History Past Surgical History: Reports: Vascular Surgery - Left antecubital graft Social/Family History - Social History Lives with: Family Smoking Status: Never Smoker Frequency of Alcohol Use: None Hx Recreational Drug Use: No Drugs: None Hx Prescription Drug Abuse: No - Medication/Allergies Home Medications: Amlodipine Besylate [Norvasc 10 mg Tablet] 10 mg PO DAILY 08/06/19 Aspirin [Adult Low Dose Aspirin EC] 81 mg PO DAILY 08/06/19 Atorvastatin Calcium [Lipitor 10 mg Tablet] 10 mg PO QHS 08/06/19 Carvedilol 25 mg PO Q12 08/06/19 Clonidine HCl [Catapres 0.3 mg Tablet] 0.3 mg PO TID 08/06/19 Hydralazine HCl [Apresoline 50 mg Tablet] 50 mg PO TID 08/06/19 Ipratropium/Albuterol Sulfate [Duoneb 3 ml Ampul] 3 ml NEB [id number] PRN 08/06/19 Isosorbide Mononitrate [Imdur 60 mg Tablet.er] 60 mg PO DAILY 08/06/19 Pantoprazole Sodium 40 mg PO BID 08/06/19 Sevelamer Carbonate [Renvela] 800 mg PO BID 08/06/19 Allergies/Adverse Reactions: No Known Drug Allergies Allergy (Verified 04/06/19 03:30) Review of Systems Constitutional: PRESENT: fatigue, weakness Eyes: ABSENT: visual disturbances Cardiovascular: PRESENT: chest pain, dyspnea on exertion. ABSENT: palpitations Respiratory: PRESENT: cough, dyspnea Gastrointestinal: PRESENT: abdominal pain, hematemesis - started yesterday, nausea, vomiting Musculoskeletal: PRESENT: back pain Neurological: ABSENT: dizziness, numbness, tingling Physical Exam Vital Signs: Temp Pulse Resp BP Pulse Ox 87 39 H 169/92 H 93 08/06/19 23:25 08/06/19 23:25 08/06/19 23:25 08/06/19 23:25 Intake & Output 08/05/19 08/06/19 08/07/19 06:59 06:59 06:59 Intake Total 150 Output Total 5000 Balance -4850 Weight 117.934 kg Weight/Height Weight 117.934 kg Height 6 ft 2 in General appearance: PRESENT: mild distress, morbidly obese Head exam: PRESENT: atraumatic, normocephalic Eye exam: PRESENT: conjunctiva pink, EOMI, PERRLA Ear exam: PRESENT: normal external ear exam Mouth exam: PRESENT: moist, other - blood noted to oral mucosa Neck exam: ABSENT: tenderness Respiratory exam: PRESENT: crackles, decreased breath sounds Cardiovascular exam: PRESENT: RRR, +S1, +S2, other - +2 edema bilaterally GI/Abdominal exam: PRESENT: hyperactive bowel sounds, soft, tenderness - diffuse Neurological exam: PRESENT: alert, awake, oriented to person, oriented to place, oriented to time, oriented to situation, CN II-XII grossly intact Skin exam: PRESENT: dry Laboratory/Radiographs Laboratory Results: 08/06/19 22:46 08/06/19 22:46 08/06/19 08/06/19 08/06/19 13:05 13:05 13:05 WBC 15.1 H RBC 2.53 L Hgb 7.6 L Hct 23.0 L MCV 91 MCH 30.2 MCHC 33.1 RDW 16.0 H Plt Count 119 L Seg Neutrophils % Not Reportable Carbonic Acid HCO3/H2CO3 Ratio ABG pH ABG pCO2 ABG pO2 ABG HCO3 ABG O2 Saturation ABG Base Excess FiO2 Sodium 142.2 Potassium 5.7 H Chloride 104 Carbon Dioxide 19 L Anion Gap 19 BUN 102 H Creatinine 15.64 H Est GFR ( Amer) 4 L Glucose 144 H Calcium 8.3 L Phosphorus Magnesium Total Bilirubin 0.7 AST 26 Alkaline Phosphatase 63 Total Protein 7.3 Albumin 4.2 Lipase 97.6 08/06/19 08/06/19 08/06/19 14:41 22:46 22:46 WBC 23.9 H RBC 2.45 L Hgb 7.2 L Hct 21.7 L MCV 89 MCH 29.6 MCHC 33.4 RDW 16.0 H Plt Count 92 L Seg Neutrophils % Not Reportable Carbonic Acid 1.10 HCO3/H2CO3 Ratio 16:1 ABG pH 7.31 L ABG pCO2 36.5 ABG pO2 62.0 L ABG HCO3 18.0 L ABG O2 Saturation 90.0 L ABG Base Excess -7.5 FiO2 3LNC Sodium 140.7 Potassium 4.5 D Chloride 99 Carbon Dioxide 26 Anion Gap 16 BUN 62 H D Creatinine 9.70 H Est GFR ( Amer) 7 L Glucose 119 H Calcium 8.2 L Phosphorus 6.0 H Magnesium 1.9 Total Bilirubin 0.8 AST 25 Alkaline Phosphatase 60 Total Protein 6.8 Albumin 3.9 Lipase 08/06/19 08/06/19 08/06/19 13:05 13:05 13:05 Creatine Kinase 770 H Troponin I 0.052 NT-Pro-B Natriuret Pep [id number] H 08/06/19 22:46 Creatine Kinase Troponin I 0.073 NT-Pro-B Natriuret Pep Impressions: Chest X-Ray 08/06/19 13:28 IMPRESSION: Acute patchy bilateral and basilar predominant parenchymal opacities. Differential considerations include pulmonary edema multifocal pneumonia. Critical Time Critical Time (minutes): 60 - not inculding procedures -: The care of a critically ill patient is dynamic. This note represents a static moment in the admission process. orders and treatments may be given simulataneously and urgentl, and time is not personal banking representative of the treatment process. This patient requires Critical Care secondary to life threating organ or limb dysfunction. Without the need for Critical Care services, the patient is at risk for increasid mortality and morbidity.
[2019-08-07 06:01] LABS: ANION GAP 15 (5-19); BLOOD UREA NITROGEN 67 mg/dL (7-20); CARBON DIOXIDE 26 mmol/L (22-30); CHLORIDE 100 mmol/L (98-107); GLUCOSE 152 mg/dL (75-110); IRON(TIBC) 29.7 ug/dL (49-181); POTASSIUM 5.1 mmol/L (3.6-5.0)
[2019-08-07 06:06] LABS: PLATELET COUNT 89 10^3/uL (150-450)
[2019-08-07 06:07] LABS: HEMOGLOBIN 6.6 g/dL (13.5-17.0)
[2019-08-07] MEDS ORDERED: NORMAL SALINE 250 ML IV PRN ×2 (06:13)
[2019-08-07] MEDS ORDERED: INFLUENZA QUAD (6MOS+) 2019-20 VAC 0.5 ML SYR IM ONE (06:34)
[2019-08-07] MEDS: IPRATROPIUM/ALBUTEROL 0.5-2.5 MG/3 ML AMPUL NEB SCH ×3 (08:24→21:55)
[2019-08-07 08:42] LABS: ARTERIAL BLOOD BASE EXCESS 1.6 mmol/L; ARTERIAL BLOOD H2CO3 1.19 mmol/L (1.05-1.35); ARTERIAL BLOOD HCO3 25.9 mmol/L (20-24); ARTERIAL BLOOD O2 SATURATION 94.4 % (94-98); ARTERIAL BLOOD PCO2 39.4 mmHg (35-45); ARTERIAL BLOOD PH 7.44 (7.35-7.45); ARTERIAL BLOOD PO2 69.1 mmHg (80-100); ARTERIAL BLOOD TOTAL CO2 27.1 mmol/L (23-27)
[2019-08-07 08:53] LABS: ARTERIAL BLOOD FIO2 70%
--- NOTE | 2019-08-07 09:47 | RADIOLOGY REPORT (SQ) ---
EXAM DESCRIPTION: CHEST SINGLE VIEW COMPLETED DATE/TIME: 08/07/2019 9:37 am REASON FOR STUDY: respiratory distress COMPARISON: 08/06/2019 EXAM PARAMETERS: NUMBER OF VIEWS: One view. TECHNIQUE: Single frontal radiographic view of the chest acquired. RADIATION DOSE: NA LIMITATIONS: None. FINDINGS: LUNGS AND PLEURA: Increasing bilateral alveolar airspace disease most likely pulmonary alexi ma. Dialysis catheter remains in place. MEDIASTINUM AND HILAR STRUCTURES: No masses. Contour normal. HEART AND VASCULAR STRUCTURES: Stable in appearance. BONES: No acute findings. HARDWARE: None in the chest. OTHER: No other significant finding. IMPRESSION: Increasing bilateral alveolar airspace disease. TECHNICAL DOCUMENTATION: JOB ID: [id number] [employer]- All Rights Reserved Reading location - IP/workstation name: [email or web address]
[2019-08-07] MEDS ORDERED: MIDAZOLAM 2 MG/2 ML INJ ONE (10:59)
[2019-08-07] MEDS ORDERED: FENTANYL CITRATE INJ/PF 100 MCG/2 ML AMPUL ONE ×2 (11:00→11:11)
[2019-08-07] MEDS ORDERED: ETOMIDATE INJ/PF 20 MG/10 ML SDV IV ONE ×2 (11:10→11:12)
--- NOTE | 2019-08-07 11:19 | PDOC PROGRESS REPORT ---
Subjective Progress Note for:: 08/07/19 Subjective:: Short of breath. Some abdominal discomfort. No further episodes of emesis, no melena, no blood per rectum. Reason For Visit: END STAGE RENAL DISEASE ON HEMODIALYSIS, Physical Exam Vital Signs: Temp Pulse Resp BP Pulse Ox 100.0 F 86 32 H 176/89 H 92 08/07/19 08:00 08/07/19 10:10 08/07/19 10:10 08/07/19 10:02 08/07/19 10:10 Intake & Output 08/06/19 08/07/19 08/08/19 06:59 06:59 06:59 Intake Total 241 159 Output Total 5000 0 Balance -4759 159 Weight 117.7 kg General appearance: PRESENT: cooperative, mild distress Respiratory exam: PRESENT: rhonchi Cardiovascular exam: PRESENT: RRR GI/Abdominal exam: PRESENT: other - Soft, nondistended, minimal tenderness in the epigastric region. Results Laboratory Results: 08/07/19 05:24 08/07/19 05:24 08/06/19 08/06/19 08/06/19 13:05 13:05 13:05 WBC 15.1 H RBC 2.53 L Hgb 7.6 L Hct 23.0 L MCV 91 MCH 30.2 MCHC 33.1 RDW 16.0 H Plt Count 119 L Seg Neutrophils % Not Reportable Retic Count (auto) Carbonic Acid HCO3/H2CO3 Ratio ABG pH ABG pCO2 ABG pO2 ABG HCO3 ABG O2 Saturation ABG Base Excess FiO2 Sodium 142.2 Potassium 5.7 H Chloride 104 Carbon Dioxide 19 L Anion Gap 19 BUN 102 H Creatinine 15.64 H Est GFR ( Amer) 4 L Glucose 144 H Calcium 8.3 L Phosphorus Magnesium Iron TIBC % Saturation Ferritin Total Bilirubin 0.7 AST 26 Alkaline Phosphatase 63 Total Protein 7.3 Albumin 4.2 Lipase 97.6 Vitamin B12 Folate Blood Type Antibody Screen 08/06/19 08/06/19 08/06/19 14:41 22:46 22:46 WBC 23.9 H RBC 2.45 L Hgb 7.2 L Hct 21.7 L MCV 89 MCH 29.6 MCHC 33.4 RDW 16.0 H Plt Count 92 L Seg Neutrophils % Not Reportable Retic Count (auto) Carbonic Acid 1.10 HCO3/H2CO3 Ratio 16:1 ABG pH 7.31 L ABG pCO2 36.5 ABG pO2 62.0 L ABG HCO3 18.0 L ABG O2 Saturation 90.0 L ABG Base Excess -7.5 FiO2 3LNC Sodium 140.7 Potassium 4.5 D Chloride 99 Carbon Dioxide 26 Anion Gap 16 BUN 62 H D Creatinine 9.70 H Est GFR ( Amer) 7 L Glucose 119 H Calcium 8.2 L Phosphorus 6.0 H Magnesium 1.9 Iron TIBC % Saturation Ferritin Total Bilirubin 0.8 AST 25 Alkaline Phosphatase 60 Total Protein 6.8 Albumin 3.9 Lipase Vitamin B12 Folate Blood Type Antibody Screen 08/07/19 08/07/19 08/07/19 05:24 05:24 06:55 WBC 22.6 H RBC 2.23 L Hgb 6.6 L Hct 19.9 L MCV 89 MCH 29.8 MCHC 33.3 RDW 15.7 H Plt Count 89 L Seg Neutrophils % Retic Count (auto) 2.21 Carbonic Acid HCO3/H2CO3 Ratio ABG pH ABG pCO2 ABG pO2 ABG HCO3 ABG O2 Saturation ABG Base Excess FiO2 Sodium 141.4 Potassium 5.1 H Chloride 100 Carbon Dioxide 26 Anion Gap 15 BUN 67 H Creatinine 10.41 H Est GFR ( Amer) 7 L Glucose 152 H Calcium 8.0 L Phosphorus 7.0 H Magnesium 1.9 Iron 29.7 L TIBC 208 L % Saturation 14 Ferritin 1080.00 H Total Bilirubin AST Alkaline Phosphatase Total Protein Albumin Lipase Vitamin B12 993.0 H Folate 17.40 Blood Type AB POSITIVE Antibody Screen NEGATIVE 08/07/19 08:27 WBC RBC Hgb Hct MCV MCH MCHC RDW Plt Count Seg Neutrophils % Retic Count (auto) Carbonic Acid 1.19 HCO3/H2CO3 Ratio 21:1 ABG pH 7.44 ABG pCO2 39.4 ABG pO2 69.1 L ABG HCO3 25.9 H ABG O2 Saturation 94.4 ABG Base Excess 1.6 FiO2 70% Sodium Potassium Chloride Carbon Dioxide Anion Gap BUN Creatinine Est GFR ( Amer) Glucose Calcium Phosphorus Magnesium Iron TIBC % Saturation Ferritin Total Bilirubin AST Alkaline Phosphatase Total Protein Albumin Lipase Vitamin B12 Folate Blood Type Antibody Screen 08/06/19 08/06/19 08/06/19 13:05 13:05 13:05 Creatine Kinase 770 H Troponin I 0.052 NT-Pro-B Natriuret Pep [id number] H 08/06/19 08/07/19 22:46 05:24 Creatine Kinase Troponin I 0.073 0.084 NT-Pro-B Natriuret Pep Impressions: Chest X-Ray 08/07/19 00:00 IMPRESSION: Increasing bilateral alveolar airspace disease. Assessment & Plan - Diagnosis (1) GI bleeding Qualifiers: GI bleed type/associated pathology: gastrointestinal hemorrhage with hematem esis Qualified Code(s): K92.0 - Hematemesis Is this a current diagnosis for this admission?: Yes Plan: Undergoing first blood transfusion currently. EGD demonstrating evidence of gastritis and a possible Sharon-Thakkar tear without active bleeding. Patient pending intubation for respiratory failure. Follow H&H to make sure he does not have ongoing bleeding. - Time Time Spent with patient: Less than 15 minutes
[2019-08-07] MEDS ORDERED: PROPOFOL 1,000 MG/100 ML INFUS..BTL IV ONE (11:22)
[2019-08-07] MEDS: PROPOFOL 1,000 MG/100 ML INFUS..BTL IV PRN ×4 (11:45→21:10)
[2019-08-07] MEDS ORDERED: FAMOTIDINE 20 MG TABLET PO SCH (11:45)
--- NOTE | 2019-08-07 11:51 | PDOC PROGRESS REPORT ---
Subjective Progress Note for:: 08/07/19 Reason For Visit: Patient seen today in the ICU. He remains rather lethargic on on oxygen and his O2 saturation seems to be rather decompensating. He had uneventful dialysis yesterday but for hematemesis towards the end of dialysis.He had about 5 L of fluid removed on dialysis yesterday. He was also respiratorily decompensating and was transferred to the ICU. He had an emergent EGD done yesterday which showed submucosal hematomas in the esophagus, diffuse gastritis and a possible Sharon-Thakkar tear. His hemoglobin has been dropping and he currently is getting blood transfusions. He says his chest , epigastric abdominal pains are still present though somewhat better. Labs and medications were reviewed. Discussions were also done with his treating nurse as well as the pesticide applicator Dr. Erickson. Did review x-ray from today which shows that the bilateral infiltrates worsened from yesterday. Physical Exam Vital Signs: Temp Pulse Resp BP Pulse Ox 100.0 F 86 32 H 176/89 H 92 08/07/19 08:00 08/07/19 10:10 08/07/19 10:10 08/07/19 10:02 08/07/19 10:10 Intake & Output 08/06/19 08/07/19 08/08/19 06:59 06:59 06:59 Intake Total 241 159 Output Total 5000 0 Balance -4759 159 Weight 117.7 kg General appearance: PRESENT: other - Sleepy and lethargic. Responding to questions very weakly. Respiratory exam: PRESENT: clear to auscultation jerald, decreased breath sounds. ABSENT: crackles Cardiovascular exam: PRESENT: +S1, +S2 GI/Abdominal exam: PRESENT: normal bowel sounds, soft. ABSENT: organomegaly, tenderness Extremities exam: PRESENT: pedal edema Neurological exam: PRESENT: altered Skin exam: ABSENT: cyanosis, erythema, mottled, rash Results Laboratory Results: 08/07/19 05:24 08/07/19 05:24 08/06/19 08/06/19 08/06/19 13:05 13:05 13:05 WBC 15.1 H RBC 2.53 L Hgb 7.6 L Hct 23.0 L MCV 91 MCH 30.2 MCHC 33.1 RDW 16.0 H Plt Count 119 L Seg Neutrophils % Not Reportable Retic Count (auto) Carbonic Acid HCO3/H2CO3 Ratio ABG pH ABG pCO2 ABG pO2 ABG HCO3 ABG O2 Saturation ABG Base Excess FiO2 Sodium 142.2 Potassium 5.7 H Chloride 104 Carbon Dioxide 19 L Anion Gap 19 BUN 102 H Creatinine 15.64 H Est GFR ( Amer) 4 L Glucose 144 H Calcium 8.3 L Phosphorus Magnesium Iron TIBC % Saturation Ferritin Total Bilirubin 0.7 AST 26 Alkaline Phosphatase 63 Total Protein 7.3 Albumin 4.2 Lipase 97.6 Vitamin B12 Folate Blood Type Antibody Screen 08/06/19 08/06/19 08/06/19 14:41 22:46 22:46 WBC 23.9 H RBC 2.45 L Hgb 7.2 L Hct 21.7 L MCV 89 MCH 29.6 MCHC 33.4 RDW 16.0 H Plt Count 92 L Seg Neutrophils % Not Reportable Retic Count (auto) Carbonic Acid 1.10 HCO3/H2CO3 Ratio 16:1 ABG pH 7.31 L ABG pCO2 36.5 ABG pO2 62.0 L ABG HCO3 18.0 L ABG O2 Saturation 90.0 L ABG Base Excess -7.5 FiO2 3LNC Sodium 140.7 Potassium 4.5 D Chloride 99 Carbon Dioxide 26 Anion Gap 16 BUN 62 H D Creatinine 9.70 H Est GFR ( Amer) 7 L Glucose 119 H Calcium 8.2 L Phosphorus 6.0 H Magnesium 1.9 Iron TIBC % Saturation Ferritin Total Bilirubin 0.8 AST 25 Alkaline Phosphatase 60 Total Protein 6.8 Albumin 3.9 Lipase Vitamin B12 Folate Blood Type Antibody Screen 08/07/19 08/07/19 08/07/19 05:24 05:24 06:55 WBC 22.6 H RBC 2.23 L Hgb 6.6 L Hct 19.9 L MCV 89 MCH 29.8 MCHC 33.3 RDW 15.7 H Plt Count 89 L Seg Neutrophils % Retic Count (auto) 2.21 Carbonic Acid HCO3/H2CO3 Ratio ABG pH ABG pCO2 ABG pO2 ABG HCO3 ABG O2 Saturation ABG Base Excess FiO2 Sodium 141.4 Potassium 5.1 H Chloride 100 Carbon Dioxide 26 Anion Gap 15 BUN 67 H Creatinine 10.41 H Est GFR ( Amer) 7 L Glucose 152 H Calcium 8.0 L Phosphorus 7.0 H Magnesium 1.9 Iron 29.7 L TIBC 208 L % Saturation 14 Ferritin 1080.00 H Total Bilirubin AST Alkaline Phosphatase Total Protein Albumin Lipase Vitamin B12 993.0 H Folate 17.40 Blood Type AB POSITIVE Antibody Screen NEGATIVE 08/07/19 08:27 WBC RBC Hgb Hct MCV MCH MCHC RDW Plt Count Seg Neutrophils % Retic Count (auto) Carbonic Acid 1.19 HCO3/H2CO3 Ratio 21:1 ABG pH 7.44 ABG pCO2 39.4 ABG pO2 69.1 L ABG HCO3 25.9 H ABG O2 Saturation 94.4 ABG Base Excess 1.6 FiO2 70% Sodium Potassium Chloride Carbon Dioxide Anion Gap BUN Creatinine Est GFR ( Amer) Glucose Calcium Phosphorus Magnesium Iron TIBC % Saturation Ferritin Total Bilirubin AST Alkaline Phosphatase Total Protein Albumin Lipase Vitamin B12 Folate Blood Type Antibody Screen 08/06/19 08/06/19 08/06/19 13:05 13:05 13:05 Creatine Kinase 770 H Troponin I 0.052 NT-Pro-B Natriuret Pep [id number] H 08/06/19 08/07/19 22:46 05:24 Creatine Kinase Troponin I 0.073 0.084 NT-Pro-B Natriuret Pep Impressions: Chest X-Ray 08/07/19 00:00 IMPRESSION: Increasing bilateral alveolar airspace disease. Assessment & Plan - Diagnosis (1) End-stage renal disease on hemodialysis Is this a current diagnosis for this admission?: Yes Plan: Had dialysis yesterday with removal of 5 L of fluid. Currently patient does not show any signs of fluid overload. Plan for dialysis in the morning. Orders have been placed for that. (2) CHF (congestive heart failure) Plan: Chest x-ray reviewed yesterday suggested that he had bronchopneumonia but also an added element of congestive heart failure. However x-ray done this morning shows worsening bilateral infiltrates more indicative of bilateral pneumonia. Continue to monitor. No indications for dialysis today. (3) Healthcare-associated pneumonia Is this a current diagnosis for this admission?: Yes Plan: On IV antibiotics. Presently his respiratory status is worsening and possibly may need intubation. Continue antibiotics and further management as per in tensivist. (4) Hyperkalemia Is this a current diagnosis for this admission?: Yes Plan: Mild. Some of this could be as a result of his upper GI bleed. No treatment necessary. Plan for dialysis tomorrow and should take care of that. (5) Anemia Is this a current diagnosis for this admission?: Yes Plan: Combination of chronic kidney disease as well as acute upper GI bleed. Currently decompensating with a hemoglobin today at 6.2. Patient in the process of blood transfusion. Did get DDAVP yesterday as per pesticide applicator notes which would help him from an uremic point of view. (6) Uncontrolled hypertension Is this a current diagnosis for this admission?: Yes Plan: Still uncontrolled. Might need IV medications given the fact that he might have difficulty to take his pills especially if he is intubated. (7) GI bleeding Qualifiers: GI bleed type/associated pathology: gastrointestinal hemorrhage with hematemesis Qualified Code(s): K92.0 - Hematemesis Is this a current diagnosis for this admission?: Yes Plan: Upper GI. Status post emergent EGD findings as mentioned earlier. Further management as per pesticide applicator/surgery. (8) Respiratory failure Plan: Seems to be decompensating this morning. May need intubation. Managed by pesticide applicator.
[2019-08-07] MEDS ORDERED: PHARMACY COMMUNICATION ORDER MC NR (12:00)
[2019-08-07] MEDS ORDERED: ROCURONIUM BROMIDE INJ 50 MG/5 ML VIAL IV ONE ×2 (12:00→15:58)
[2019-08-07] MEDS ORDERED: FENTANYL CITRATE INJ/PF 100 MCG/2 ML AMPUL IV ONE (12:00)
[2019-08-07] MEDS ORDERED: MAGNESIUM HYDROXIDE SUSP 30 ML UDCUP NG PRN (12:30)
[2019-08-07] MEDS ORDERED: NORMAL SALINE INJ/PF 0.9% 10 ML SDV IV PRN (13:27)
[2019-08-07] MEDS ORDERED: (PENDING PHARMACY ID) (Clonidine Hcl [Catapres 0.3 Mg Tablet] 0.3 MG) PO SCH (14:00)
[2019-08-07] MEDS ORDERED: (PENDING PHARMACY ID) (Sevelamer Carbonate [Renvela] 800 MG) PO SCH (14:00)
[2019-08-07] MEDS ORDERED: (PENDING PHARMACY ID) (Carvedilol [Carvedilol] 25 MG) PO SCH (14:00)
[2019-08-07 14:11] LABS: ARTERIAL BLOOD BASE EXCESS 0.4 mmol/L; ARTERIAL BLOOD H2CO3 1.51 mmol/L (1.05-1.35); ARTERIAL BLOOD HCO3 26.4 mmol/L (20-24); ARTERIAL BLOOD O2 SATURATION 98.2 % (94-98); ARTERIAL BLOOD PCO2 50.2 mmHg (35-45); ARTERIAL BLOOD PH 7.34 (7.35-7.45); ARTERIAL BLOOD PO2 121.6 mmHg (80-100)
--- NOTE | 2019-08-07 14:21 | Operative Report ---
Bedside Procedure - History of Present Illness History of Present Illness: Per admission H&P "BROOK LOMBARDI is a 39 year old male With a past history of ESRD on hemodialysis in the background of hypertension, noncompliant with diet and medications who presents to the emergency department with a chief complaint of c oughing of green expectoration foe 2-3 days, shortness of breath and chest pain. Patient states that his chest pain is in the mid left side of his chest. It is pleuritic in nature and gets worse with coughing or deep breathing. It does not radiate. He denies any fever. Patient missed last Tuesday's dialysis. He went into dialysis today and due to his blood pressure being elevated, he was referr ed here to the emergency department. Currently he is being seen while undergoing dialysis. He looks comfortable though his blood pressures are high. He says he has his left/kdu-ldiehyy-cteprnue pain that gets worse if he coughs. Does not have any clear reason for missing his last dialysis. Chest x-ray on review shows bibasilar opacities suggestive of pulmonary edema as well as bronchopneumonia. Labs and medications were reviewed. Dialysis orders were reviewed with the treating dialysis nurse." He developed worsening respiratory failure and increased oxygen demands. CXR was worse despite 5 liters removed by dialysis. He endorsed that he felt that he was tiring. Intubation was planned Procedure Procedure: Emergent intubation Pre-procedure diagnosis: Acute hypoxic respiratory failure Post-procedure diagnosis: Same Proceduralist: Chuck Airway exam prior: Re-assuring airway. Only concern was male with BMI > 30. Anesthesia: RSI with Fentanyl 150 mcg, Etomidate (20 mg) and Rocuronium 140 mg Findings: Loose right top front incisor note on airway inspection prior to intubation. Intact post-intubation Grade 3 view with cricoid. Thick, foul smelling secretions. EBL: None Complications: None Xray: Tip at clavicles, advanced 2 cm Patient was appropriately identified with ongoing critical care chart check and name bracelet. A verbal consent for both the procedure and for his fiance to assumed medical power of commonwealth attorney was declared. Appropriate adjunctive equipment was available including the glide scope, intubating bougie, LMA's of various sizes. Already been preoxygenated on high flow with an increased respiratory rate. Notably his right upper front incisor was loose prior to procedure. Post procedure it was intact and showed no worsening. Patient was given 150 mcg of fentanyl followed by 20 mg of etomidate and 140 mg of rocuronium. When he was sufficiently sedated and under neuromuscular blockade a direct laryngoscopy was done using a #4 Raffaele blade. The view initially was a grade 4 however with gentle flexion of his neck and cricoid pressure a grade 3 view was able to be obtained. The ET tube was placed. On first insufflation there were no gastric sounds heard. End-tidal CO2 exchange occurred up to 10 ventilations. There were good bilateral breath sounds started on the left and then the right. Patient tolerated the procedure well there are no complications there were no dental injuries related to the intubation. Procedure excludes critical care time Indication for Procedure: Acute hypoxic respiratory failure Date: 08/07/19 Provider: KVNG NORIEGA
[2019-08-07 14:22] LABS: ARTERIAL BLOOD FIO2 80%
--- NOTE | 2019-08-07 14:25 | Operative Report ---
Bedside Procedure - History of Present Illness History of Present Illness: Per admission H&P "BROOK LOMBARDI is a 39 year old male With a past history of ESRD on hemodialysis in the background of hypertension, noncompliant with diet and medications who presents to the emergency department with a chief complaint of c oughing of green expectoration foe 2-3 days, shortness of breath and chest pain. Patient states that his chest pain is in the mid left side of his chest. It is pleuritic in nature and gets worse with coughing or deep breathing. It does not radiate. He denies any fever. Patient missed last Tuesday's dialysis. He went into dialysis today and due to his blood pressure being elevated, he was referr ed here to the emergency department. Currently he is being seen while undergoing dialysis. He looks comfortable though his blood pressures are high. He says he has his left/aye-aqsipcc-neffcgxw pain that gets worse if he coughs. Does not have any clear reason for missing his last dialysis. Chest x-ray on review shows bibasilar opacities suggestive of pulmonary edema as well as bronchopneumonia. Labs and medications were reviewed. Dialysis orders were reviewed with the treating dialysis nurse." He developed worsening respiratory failure and increased oxygen demands. CXR was worse despite 5 liters removed by dialysis. He endorsed that he felt that he was tiring. Intubation was planned Procedure Procedure: Emergent intubation Pre-procedure diagnosis: Acute hypoxic respiratory failure Post-procedure diagnosis: Same Proceduralist: Chuck Airway exam prior: Re-assuring airway. Only concern was male with BMI > 30. Anesthesia: RSI with Fentanyl 150 mcg, Etomidate (20 mg) and Rocuronium 140 mg Findings: Loose right top front incisor note on airway inspection prior to intubation. Intact post-intubation Grade 3 view with cricoid. Thick, foul smelling secretions. EBL: None Complications: None Xray: Tip at clavicles, advanced 2 cm Patient was appropriately identified with ongoing critical care chart check and name bracelet. A verbal consent for both the procedure and for his fiance to assumed medical power of bankruptcy attorney was declared. Appropriate adjunctive equipment was available including the glide scope, intubating bougie, LMA's of various sizes. Already been preoxygenated on high flow with an increased respiratory rate. Notably his right upper front incisor was loose prior to procedure. Post procedure it was intact and showed no worsening. Patient was given 150 mcg of fentanyl followed by 20 mg of etomidate and 140 mg of rocuronium. When he was sufficiently sedated and under neuromuscular blockade a direct laryngoscopy was done using a #4 Raffaele blade. The view initially was a grade 4 however with gentle flexion of his neck and cricoid pressure a grade 3 view was able to be obtained. The ET tube was placed. On first insufflation there were no gastric sounds heard. End-tidal CO2 exchange occurred up to 10 ventilations. There were good bilateral breath sounds started on the left and then the right. Patient tolerated the procedure well there are no complications there were no dental injuries related to the intubation. Procedure excludes critical care time Indication for Procedure: Acute hypoxic respiratory failure with pneumonia, poor IV access Date: 08/07/19 Provider: KVNG NORIEGA - Central Line Left Internal jugular Time completed: 12:30 Consent obtained: Yes - verbal from patient prior to intubation Central line pre-insertion: Sterile PPE donned, Chloraprep applied, Sterile drapes applied Central line size (Fr.): 7 Central line lumen type: Triple Ultrasound guided: Yes CM at insertion site: 18 Line secured with sutures: Yes Central line post-insertion: Blood return from lumens, Biopatch applied, Sutured, Sterile dressing applied, Position confirmed w/ CXR, Other - Wire seen on US Complications: No Notes: 08/07/19 14:24 No specific complications but new TLC had to be inserted over wire when the first one would not allow blood to be withdrawn. Successful blood in all lumens on second catheter. Patient has indwelling dialysis catheter.
--- NOTE | 2019-08-07 14:53 | PDOC CRITICAL CARE PROG REPORT ---
General Date:: 08/07/19 ICU Day:: 2 Ventilator Day:: 0 Hospital Day:: 2 Events in the past 12 to 24 Hours:: Patient was transferred down from the dialysis unit after being admitted there directly for acute hypoxia supposedly related to fluid overload with pulmonary edema. We initially evaluated him in the dialysis unit because of questionable pneumonia with hypoxia and because he developed what appeared to be hematemesis. Was difficult to note at first whether this was hemoptysis or true hematemesis. He underwent EGD results as noted. His hemoglobin is slightly lower but he has been hypertensive without tachycardia. Review of systems relevant to events:: Patient appears to be somewhat distressed. He endorses respiratory distress. He feels that he is tiring. Last hemoglobin was 6.6. His blood pressure has been difficult to control and he is on a Cardene drip at 7.5 mg/h equaling 75 mL's per hour. He has had no further hematemesis or hemoptysis. Chest x-ray is worsening despite 5 L removed via dialysis. Reason for ICU Addmission:: Hematemasis. Hypoxia. Hypertension - Medications: Medications reviewed and adjusted accordingly: Yes Vasopressors:: Cardene at 7.5 mg Sedation:: None Physical Exam Vital Signs: Temp Pulse Resp BP Pulse Ox 100.0 F 83 27 H 176/89 H 97 08/07/19 08:00 08/07/19 14:35 08/07/19 14:35 08/07/19 10:02 08/07/19 14:35 Intake & Output 08/06/19 08/07/19 08/08/19 06:59 06:59 06:59 Intake Total 241 359 Output Total 5000 0 Balance -4759 359 Weight 117.7 kg Weight/Height Weight 117.7 kg Height 6 ft 2 in General appearance: PRESENT: cooperative, obese Exam: Older appearing 39-year-old black male who appears to be in moderate distress. He is lethargic but arousable oriented to person place time and events. Head exam: PRESENT: atraumatic, normocephalic Eye exam: PRESENT: conjunctival injection, conjunctiva pink, EOMI, PERRLA. ABSENT: nystagmus, scleral icterus Mouth exam: PRESENT: moist, neck supple Teeth exam: PRESENT: dental caries, poor dentation - Right front incisor loose. Throat exam: ABSENT: post pharyngeal erythema Neck exam: PRESENT: full ROM. ABSENT: carotid bruit, JVD, lymphadenopathy, tenderness, thyromegaly Respiratory exam: PRESENT: accessory muscle use, decreased breath sounds, rhonchi, tachypnea. ABSENT: unlabored, wheezes Cardiovascular exam: PRESENT: RRR, +S1, +S2. ABSENT: tachycardia Pulses: PRESENT: normal carotid pulses, +2 pedal pulses bilateral Vascular exam: PRESENT: normal capillary refill. ABSENT: pallor GI/Abdominal exam: PRESENT: normal bowel sounds, soft. ABSENT: ascites, distended, guarding, mass, organolmegaly, rebound, tenderness Rectal exam: PRESENT: deferred Gentrourinary exam: ABSENT: ecchymosis, scrotal swelling Extremities exam: PRESENT: pedal edema. ABSENT: clubbing, tenderness Musculoskeletal exam: ABSENT: deformity, dislocation Neurological exam: PRESENT: awake, oriented to person, oriented to place, orien ann to time, oriented to situation, CN II-XII grossly intact. ABSENT: motor sensory deficit, aphasic Psychiatric exam: PRESENT: flat affect Focused psych exam: ABSENT: pressured speech, psychomotor agitation, restlessness Skin exam: PRESENT: dry, normal color. ABSENT: cyanosis, erythema, mottled, pallor, petechiae, urticaria, vesicles Tubes/Lines: ABSENT: Endotracheal Tube, Chest Tube, Central Line, Arterial Catheter, Dialysis catheter, Peg Tube, Nasogastic Tube, Other Laboratory/Radiographs Laboratory Results: 08/07/19 05:24 08/07/19 05:24 08/06/19 08/06/19 08/06/19 14:41 22:46 22:46 WBC 23.9 H RBC 2.45 L Hgb 7.2 L Hct 21.7 L MCV 89 MCH 29.6 MCHC 33.4 RDW 16.0 H Plt Count 92 L Seg Neutrophils % Not Reportable Retic Count (auto) Carbonic Acid 1.10 HCO3/H2CO3 Ratio 16:1 ABG pH 7.31 L ABG pCO2 36.5 ABG pO2 62.0 L ABG HCO3 18.0 L ABG O2 Saturation 90.0 L ABG Base Excess -7.5 FiO2 3LNC Sodium 140.7 Potassium 4.5 D Chloride 99 Carbon Dioxide 26 Anion Gap 16 BUN 62 H D Creatinine 9.70 H Est GFR ( Amer) 7 L Glucose 119 H Lactic Acid Calcium 8.2 L Phosphorus 6.0 H Magnesium 1.9 Iron TIBC % Saturation Ferritin Total Bilirubin 0.8 AST 25 Alkaline Phosphatase 60 Total Protein 6.8 Albumin 3.9 Triglycerides Vitamin B12 Folate Blood Type Antibody Screen 08/07/19 08/07/19 08/07/19 05:24 05:24 05:24 WBC 22.6 H RBC 2.23 L Hgb 6.6 L Hct 19.9 L MCV 89 MCH 29.8 MCHC 33.3 RDW 15.7 H Plt Count 89 L Seg Neutrophils % Retic Count (auto) 2.21 Carbonic Acid HCO3/H2CO3 Ratio ABG pH ABG pCO2 ABG pO2 ABG HCO3 ABG O2 Saturation ABG Base Excess FiO2 Sodium 141.4 Potassium 5.1 H Chloride 100 Carbon Dioxide 26 Anion Gap 15 BUN 67 H Creatinine 10.41 H Est GFR ( Amer) 7 L Glucose 152 H Lactic Acid Calcium 8.0 L Phosphorus 7.0 H Magnesium 1.9 Iron 29.7 L TIBC 208 L % Saturation 14 Ferritin 1080.00 H Total Bilirubin AST Alkaline Phosphatase Total Protein Albumin Triglycerides 67 Vitamin B12 993.0 H Folate 17.40 Blood Type Antibody Screen 08/07/19 08/07/19 08/07/19 06:55 08:27 13:40 WBC RBC Hgb Hct MCV MCH MCHC RDW Plt Count Seg Neutrophils % Retic Count (auto) Carbonic Acid 1.19 HCO3/H2CO3 Ratio 21:1 ABG pH 7.44 ABG pCO2 39.4 ABG pO2 69.1 L ABG HCO3 25.9 H ABG O2 Saturation 94.4 ABG Base Excess 1.6 FiO2 70% Sodium Potassium Chloride Carbon Dioxide Anion Gap BUN Creatinine Est GFR ( Amer) Glucose Lactic Acid 0.6 L Calcium Phosphorus Magnesium Iron TIBC % Saturation Ferritin Total Bilirubin AST Alkaline Phosphatase Total Protein Albumin Triglycerides Vitamin B12 Folate Blood Type AB POSITIVE Antibody Screen NEGATIVE 08/07/19 13:42 WBC RBC Hgb Hct MCV MCH MCHC RDW Plt Count Seg Neutrophils % Retic Count (auto) Carbonic Acid 1.51 H HCO3/H2CO3 Ratio 17:1 ABG pH 7.34 L ABG pCO2 50.2 H ABG pO2 121.6 H ABG HCO3 26.4 H ABG O2 Saturation 98.2 H ABG Base Excess 0.4 FiO2 80% Sodium Potassium Chloride Carbon Dioxide Anion Gap BUN Creatinine Est GFR ( Amer) Glucose Lactic Acid Calcium Phosphorus Magnesium Iron TIBC % Saturation Ferritin Total Bilirubin AST Alkaline Phosphatase Total Protein Albumin Triglycerides Vitamin B12 Folate Blood Type Antibody Screen 08/06/19 08/06/19 08/06/19 13:05 13:05 13:05 Creatine Kinase 770 H Troponin I 0.052 NT-Pro-B Natriuret Pep 26216 H 08/06/19 08/07/19 22:46 05:24 Creatine Kinase Troponin I 0.073 0.084 NT-Pro-B Natriuret Pep Impressions: Chest X-Ray 08/07/19 00:00 IMPRESSION: Increasing bilateral alveolar airspace disease. All labs, radiographs, diagnostic studies and EKGs were personally reviewed: Yes In addition, reports of radiographic and diagnostic studies were read: Yes Assessment and Plan - Diagnosis (1) Acute respiratory failure with hypoxia Is this a current diagnosis for this admission?: Yes (2) Pneumonia Qualifiers: Pneumonia type: due to unspecified organism Laterality: bilateral Lung location: unspecified part of lung Qualified Code(s): J18.9 - Pneumonia, unspecified organism Is this a current diagnosis for this admission?: Yes (3) Acute blood loss anemia Is this a current diagnosis for this admission?: Yes (4) Upper GI bleeding Is this a current diagnosis for this admission?: Yes (5) Hypertensive urgency Is this a current diagnosis for this admission?: Yes (6) CKD stage 5 due to type 2 diabetes mellitus Is this a current diagnosis for this admission?: Yes (7) Dependence on renal dialysis Is this a current diagnosis for this admission?: Yes Plan Summary: 08.07.19: Patient's respiratory status has worsened and we discussed the need for mechanical ventilation due to his hypoxia and increased respiratory rate. He was successfully intubated however there was noted to be foul-smelling secretions. I am concerned that this may represent Klebsiella or Pseudomonas. Have discontinued vancomycin at this point but will await sputum Gram stain and cultures to adjudicate his current Zosyn regimen. He is not hypotensive and in fact is requiring Cardene for control of his blood pressure. We will attempt to keep blood pressure between 140-160 mmHg recognizing that a gentle and judicious balance between elevation in blood pressure to keep cerebral blood flow intact in the face of upper GI bleed with varices. We will start nutritional support. Given the report by the surgeon this appears to be a Sharon-Thakkar process most likely brought on by cough induced nausea and emesis. He was given DDAVP to control renal failure induced platelet dysfunction. Continue to monitor for any further bleeding via the OG tube. Patient will need IV access and he gave consent prior to intubation. He agreed to central venous access and arterial catheter. From respiratory standpoint we will control oxygenation with PEEP and keep FiO2 less than 60. Follow if blood cultures and Gram stain and sputum cultures He will not require dialysis today. Monitor his hemoglobin hematocrit and metabolic profile. Repeat ABG. Critical Time Critical Time (minutes): 120 Level of Care: ICU -: 1. The care of a critical patient is a dynamic process. This note is a digital media representative synopsis but static in nature. The timeframe for treatments given in order is not necessary the actual time these treatments may have been done. 2. This patient requires critical care secondary to ongoing requirements for therapy not offered or safe outside the critical care environment. Transfer to a lower level of care with altered life or limb morbidity and mortality. 3. Multidisciplinary rounds completed. 4. ABCDE bundle addressed. 5. TELMAA: Dorys
[2019-08-07] MEDS: HYDRALAZINE HCL 50 MG TABLET PO SCH ×2 (14:59→21:37)
[2019-08-07] MEDS: PIPERACILLIN SODIUM/TAZOBACTAM 2.25 GM in NORMAL SALINE 50 ML IV SCH ×2 (15:05→18:22)
--- NOTE | 2019-08-07 15:10 | RADIOLOGY REPORT (SQ) ---
EXAM DESCRIPTION: CHEST SINGLE VIEW COMPLETED DATE/TIME: 08/07/2019 3:02 pm REASON FOR STUDY: line and tube placement COMPARISON: Earlier the same day. EXAM PARAMETERS: NUMBER OF VIEWS: One view. TECHNIQUE: Single frontal radiographic view of the chest acquired. RADIATION DOSE: NA LIMITATIONS: None. FINDINGS: LUNGS AND PLEURA: Central line and endotracheal tube have been added. Endotracheal tubes in satisfactory position. Tip lies 4 cm above the alphonse. A left-sided IJ line has been placed. Ti p lies in the horizontal position probably within the innominate vein. No pneumothorax. Persistent diffuse bilateral alveolar airspace disease. Dialysis catheter remains in place. MEDIASTINUM AND HILAR STRUCTURES: No masses. Contour normal. HEART AND VASCULAR STRUCTURES: Heart normal in size. Normal vasculature. BONES: No acute findings. HARDWARE: None in the chest. OTHER: No other significant finding. IMPRESSION: 1. Diffuse bilateral alveolar airspace disease unchanged from earlier film. 2. Endotracheal tube and central line have been added as described. TECHNICAL DOCUMENTATION: JOB ID: [id number] [employer]- All Rights Reserved Reading location - IP/workstation name: [email or web address]
[2019-08-07] MEDS: PANTOPRAZOLE SODIUM 40 MG VIAL IV SCH ×2 (15:22→21:29)
--- NOTE | 2019-08-07 16:57 | RADIOLOGY REPORT (SQ) ---
EXAM DESCRIPTION: KUB/ABDOMEN (SINGLE VIEW) COMPLETED DATE/TIME: 08/07/2019 4:44 pm REASON FOR STUDY: confirm NG placement COMPARISON: None. NUMBER OF VIEWS: One view. TECHNIQUE: Supine radiographic image of the abdomen acquired. LIMITATIONS: None. FINDINGS: Limited view the abdomen is obtained for NG tube placement. Catheter tip overlies the lef t mid abdomen presumably within stomach. IMPRESSION: Limited exam for placement of NG tube as described. TECHNICAL DOCUMENTATION: JOB ID: [id number] [employer]- All Rights Reserved Reading location - IP/workstation name: [email or web address]
[2019-08-07] MEDS: MINERAL OIL/PETROLATUM,WHITE OPH OINT 3.5 GM OU SCH ×2 (16:59→21:36)
[2019-08-07] MEDS: SEVELAMER HCL 800 MG TABLET PO SCH (17:23)
[2019-08-07] MEDS: AMLODIPINE BESYLATE 10 MG TABLET PO SCH (17:26)
[2019-08-07] MEDS: CLONIDINE HCL 0.1 MG TABLET PO SCH ×2 (17:26→21:38)
[2019-08-07] MEDS: CARVEDILOL 12.5 MG TABLET PO SCH ×2 (17:27→21:36)
[2019-08-07 18:13] LABS: HEMATOCRIT 18.7 % (37.9-51.0); MEAN CORPUSCULAR HEMOGLOBIN 30.2 pg (27.0-33.4); MEAN CORPUSCULAR HGB CONC 34.2 g/dL (32.0-36.0); MEAN CORPUSCULAR VOLUME 88 fl (80-97); RED BLOOD COUNT 2.12 10^6/uL (4.35-5.55); RED CELL DISTRIBUTION WIDTH 15.5 % (11.5-14.0); WHITE BLOOD COUNT 15.5 10^3/uL (4.0-10.5)
[2019-08-07 18:47] LABS: HEMOGLOBIN 6.4 g/dL (13.5-17.0); PLATELET COUNT 83 10^3/uL (150-450)
[2019-08-07] MEDS ORDERED: DESMOPRESSIN ACETATE INJ 4 MCG/1 ML AMPULE IV ONE (19:30)
[2019-08-07] MEDS: ATORVASTATIN CALCIUM 10 MG TABLET PO SCH (21:30)
[2019-08-07] MEDS ORDERED: FAMOTIDINE 20 MG TABLET NG SCH (22:00)
[2019-08-08] MEDS: PROPOFOL 1,000 MG/100 ML INFUS..BTL IV PRN ×4 (00:23→15:18)
[2019-08-08] MEDS: AZITHROMYCIN 500 MG in DEXTROSE 5%-WATER 250 ML IV SCH ×2 (00:31→22:04)
[2019-08-08] MEDS: IPRATROPIUM/ALBUTEROL 0.5-2.5 MG/3 ML AMPUL NEB SCH ×4 (02:46→19:04)
[2019-08-08] MEDS: PIPERACILLIN SODIUM/TAZOBACTAM 2.25 GM in NORMAL SALINE 50 ML IV SCH ×3 (02:51→17:10)
[2019-08-08 03:52] LABS: ARTERIAL BLOOD BASE EXCESS -0.9 mmol/L; ARTERIAL BLOOD FIO2 40%; ARTERIAL BLOOD HCO3 23.4 mmol/L (20-24); ARTERIAL BLOOD O2 SATURATION 95.1 % (94-98); ARTERIAL BLOOD PCO2 36.5 mmHg (35-45); ARTERIAL BLOOD PH 7.42 (7.35-7.45); ARTERIAL BLOOD PO2 73.2 mmHg (80-100); ARTERIAL BLOOD TOTAL CO2 24.5 mmol/L (23-27)
[2019-08-08] MEDS: CLONIDINE HCL 0.1 MG TABLET PO SCH ×3 (06:51→23:27)
[2019-08-08] MEDS: MINERAL OIL/PETROLATUM,WHITE OPH OINT 3.5 GM OU SCH ×3 (07:34→22:00)
[2019-08-08 07:42] LABS: ALKALINE PHOSPHATASE 47 U/L (38-126); ANION GAP 17 (5-19); ASPARTATE AMINO TRANSFERASE 16 U/L (17-59); BILIRUBIN,DIRECT 0.9 mg/dL (0.0-0.4); BILIRUBIN,TOTAL 1.7 mg/dL (0.2-1.3); BLOOD UREA NITROGEN 89 mg/dL (7-20); CALCIUM 7.7 mg/dL (8.4-10.2); CARBON DIOXIDE 24 mmol/L (22-30); CHLORIDE 98 mmol/L (98-107); GLUCOSE 92 mg/dL (75-110); PHOSPHORUS 7.2 mg/dL (2.5-4.5); TOTAL PROTEIN 5.8 g/dL (6.3-8.2)
[2019-08-08 07:46] LABS: VANCOMYCIN,TROUGH 18.9 ug/mL (5.0-20.0)
[2019-08-08 07:50] LABS: ABSOLUTE BASOPHILS # (AUTO) 0.1 10^3/uL (0.0-0.2); ABSOLUTE EOSINOPHILS # (AUTO) 0.2 10^3/uL (0.0-0.6); ABSOLUTE LYMPHOCYTES (AUTO) 0.8 10^3/uL (0.5-4.7); ABSOLUTE MONOCYTES (AUTO) 1.4 10^3/uL (0.1-1.4); ABSOLUTE NEUT (AUTO) 11.6 10^3/uL (1.7-8.2); BASOPHILS % (AUTO) 0.5 % (0-2); EOSINOPHILS % (AUTO) 1.4 % (0-6); HEMATOCRIT 17.3 % (37.9-51.0); MEAN CORPUSCULAR HEMOGLOBIN 30.1 pg (27.0-33.4); MEAN CORPUSCULAR VOLUME 89 fl (80-97); MONOCYTES % (AUTO) 9.8 % (3-13); RED BLOOD COUNT 1.96 10^6/uL (4.35-5.55); RED CELL DISTRIBUTION WIDTH 16.1 % (11.5-14.0); SEGMENTED NEUTROPHILS % (AUTO) 82.3 % (42-78); TOTAL CELLS COUNTED % (AUTO) 100 %; WHITE BLOOD COUNT 14.1 10^3/uL (4.0-10.5)
[2019-08-08 08:00] LABS: HEMOGLOBIN 5.9 g/dL (13.5-17.0)
[2019-08-08 08:14] LABS: PLATELET COUNT 89 10^3/uL (150-450)
--- NOTE | 2019-08-08 08:45 | RADIOLOGY REPORT (SQ) ---
EXAM DESCRIPTION: CHEST SINGLE VIEW COMPLETED DATE/TIME: 08/08/2019 6:42 am REASON FOR STUDY: pneumonia COMPARISON: AP view of the chest from 08/07/2019. EXAM PARAMETERS: NUMBER OF VIEWS: One view. TECHNIQUE: Single frontal radiographic view of the chest acquired. RADIATION DOSE: NA LIMITATIONS: None. FINDINGS: LUNGS AND PLEURA: Unchanged diffuse bilateral alveolar opacities. The costophrenic sulci remain blunted. There is no pneumothorax. MEDIASTINUM AND HILAR STRUCTURES: Unchanged mediastinal and hilar contours. HEART AND VASCULAR STRUCTURES: Unchanged cardiomegaly. BONES: No acute findings. HARDWARE: The tip of the endotracheal tube projects 3.5 cm above the alphonse. The tip of the enteric tube projects past the gastroesophageal junction and outside the field of view of the radiograph. Th e tip of the left IJ central venous catheter projects within the SVC. The tip of the tunneled right IJ hemodialysis catheter projects within the right atrium. OTHER: No other finding. IMPRESSION: 1. Unchanged diffuse bilateral alveolar opacities. 2. Tubes and lines as above. TECHNICAL DOCUMENTATION: JOB ID: [id number] [employer]- All Rights Reserved Reading location - IP/workstation name: [email or web address]
[2019-08-08] MEDS: NICARDIPINE HCL RTU, ISO-OS 20 MG/200 ML RTUINJ IV PRN ×2 (09:32→17:49)
[2019-08-08 10:03] LABS: HEMATOCRIT 19.2 % (37.9-51.0); MEAN CORPUSCULAR HEMOGLOBIN 29.8 pg (27.0-33.4); MEAN CORPUSCULAR HGB CONC 33.9 g/dL (32.0-36.0); MEAN CORPUSCULAR VOLUME 88 fl (80-97); RED BLOOD COUNT 2.18 10^6/uL (4.35-5.55); RED CELL DISTRIBUTION WIDTH 15.8 % (11.5-14.0); WHITE BLOOD COUNT 15.7 10^3/uL (4.0-10.5)
[2019-08-08 10:08] LABS: HEMOGLOBIN 6.5 g/dL (13.5-17.0)
[2019-08-08 10:09] LABS: PLATELET COUNT 93 10^3/uL (150-450)
[2019-08-08] MEDS ORDERED: HEPARIN SOD (PORCINE) 1,000 UNIT/ML 10 ML VIAL IV PRN (10:45)
[2019-08-08] MEDS: HYDRALAZINE HCL 50 MG TABLET PO SCH ×3 (11:07→17:09)
[2019-08-08] MEDS: CARVEDILOL 12.5 MG TABLET PO SCH ×2 (11:07→23:27)
[2019-08-08] MEDS: SEVELAMER HCL 800 MG TABLET PO SCH ×2 (11:08→17:09)
[2019-08-08] MEDS ORDERED: NORMAL SALINE 250 ML IV PRN ×2 (11:08)
[2019-08-08] MEDS: AMLODIPINE BESYLATE 10 MG TABLET PO SCH (11:08)
[2019-08-08] MEDS: PANTOPRAZOLE SODIUM 40 MG VIAL IV SCH ×2 (11:08→22:16)
--- NOTE | 2019-08-08 12:50 | PDOC PROGRESS REPORT ---
Subjective Progress Note for:: 08/08/19 Reason For Visit: Patient seen today in the ICU on dialysis. Patient is intubated and sedated. Patient went into worsening respiratory failure yesterday and had to be intubated. He also continues to have drop in his hemoglobin and has been transfused further. Currently hemodynamically stable. Central arterial pressures show it is high. Currently undergoing dialysis without any issues off heparin. Discussions/dialysis orders were done with the treating dialysis nurse. Physical Exam Vital Signs: Temp Pulse Resp BP Pulse Ox 98.8 F 87 13 140/74 H 95 08/08/19 12:10 08/08/19 11:40 08/08/19 12:10 08/08/19 10:56 08/08/19 11:40 Intake & Output 08/07/19 08/08/19 08/09/19 06:59 06:59 06:59 Intake Total 241 1703 130 Output Total 5000 0 Balance -4759 1703 130 Weight 117.7 kg 113.7 kg Exam: Debated and sedated Respiratory exam: PRESENT: clear to auscultation jerald, decreased breath sounds. ABSENT: crackles Cardiovascular exam: PRESENT: +S1, +S2 GI/Abdominal exam: PRESENT: normal bowel sounds, soft. ABSENT: organomegaly, tenderness Extremities exam: PRESENT: pedal edema Neurological exam: PRESENT: altered - Intubated and sedated Skin exam: ABSENT: erythema, mottled, rash Results Laboratory Results: 08/08/19 09:32 08/08/19 07:00 08/07/19 08/07/19 08/07/19 05:24 06:55 13:40 WBC RBC Hgb Hct MCV MCH MCHC RDW Plt Count Seg Neutrophils % Carbonic Acid HCO3/H2CO3 Ratio ABG pH ABG pCO2 ABG pO2 ABG HCO3 ABG O2 Saturation ABG Base Excess FiO2 Sodium Potassium Chloride Carbon Dioxide Anion Gap BUN Creatinine Est GFR ( Amer) Glucose Lactic Acid 0.6 L Calcium Phosphorus Magnesium Total Bilirubin AST Alkaline Phosphatase Ammonia Total Protein Albumin Triglycerides 67 Blood Type AB POSITIVE Antibody Screen NEGATIVE 08/07/19 08/07/19 08/08/19 13:42 17:21 03:41 WBC 15.5 H RBC 2.12 L Hgb 6.4 L Hct 18.7 L MCV 88 MCH 30.2 MCHC 34.2 RDW 15.5 H Plt Count 83 L Seg Neutrophils % Carbonic Acid 1.51 H 1.10 HCO3/H2CO3 Ratio 17:1 21:1 ABG pH 7.34 L 7.42 ABG pCO2 50.2 H 36.5 ABG pO2 121.6 H 73.2 L ABG HCO3 26.4 H 23.4 ABG O2 Saturation 98.2 H 95.1 ABG Base Excess 0.4 -0.9 FiO2 80% 40% Sodium Potassium Chloride Carbon Dioxide Anion Gap BUN Creatinine Est GFR ( Amer) Glucose Lactic Acid Calcium Phosphorus Magnesium Total Bilirubin AST Alkaline Phosphatase Ammonia Total Protein Albumin Triglycerides Blood Type Antibody Screen 08/08/19 08/08/19 08/08/19 07:00 07:00 07:00 WBC 14.1 H RBC 1.96 L Hgb 5.9 L Hct 17.3 L MCV 89 MCH 30.1 MCHC 34.0 RDW 16.1 H Plt Count 89 L Seg Neutrophils % 82.3 H Carbonic Acid HCO3/H2CO3 Ratio ABG pH ABG pCO2 ABG pO2 ABG HCO3 ABG O2 Saturation ABG Base Excess FiO2 Sodium 138.8 Potassium 5.0 Chloride 98 Carbon Dioxide 24 Anion Gap 17 BUN 89 H Creatinine 11.57 H Est GFR ( Amer) 6 L Glucose 92 Lactic Acid Calcium 7.7 L Phosphorus 7.2 H Magnesium 1.9 Total Bilirubin 1.7 H AST 16 L Alkaline Phosphatase 47 Ammonia < 8.7 L Total Protein 5.8 L Albumin 3.0 L Triglycerides Blood Type Antibody Screen 08/08/19 09:32 WBC 15.7 H RBC 2.18 L Hgb 6.5 L Hct 19.2 L MCV 88 MCH 29.8 MCHC 33.9 RDW 15.8 H Plt Count 93 L Seg Neutrophils % Carbonic Acid HCO3/H2CO3 Ratio ABG pH ABG pCO2 ABG pO2 ABG HCO3 ABG O2 Saturation ABG Base Excess FiO2 Sodium Potassium Chloride Carbon Dioxide Anion Gap BUN Creatinine Est GFR ( Amer) Glucose Lactic Acid Calcium Phosphorus Magnesium Total Bilirubin AST Alkaline Phosphatase Ammonia Total Protein Albumin Triglycerides Blood Type Antibody Screen 08/06/19 08/06/19 08/06/19 13:05 13:05 13:05 Creatine Kinase 770 H Troponin I 0.052 NT-Pro-B Natriuret Pep 99550 H 08/06/19 08/07/19 22:46 05:24 Creatine Kinase Troponin I 0.073 0.084 NT-Pro-B Natriuret Pep Impressions: KUB X-Ray 08/07/19 15:19 IMPRESSION: Limited exam for placement of NG tube as described. Chest X-Ray 08/08/19 06:00 IMPRESSION: 1. Unchanged diffuse bilateral alveolar opacities. 2. Tubes and lines as above. Assessment & Plan - Diagnosis (1) End-stage renal disease on hemodialysis Is this a current diagnosis for this admission?: Yes Plan: Currently undergoing dialysis. Vital signs are stable. Plan to remove 3 L of fluid as tolerated. Dialysis orders were reviewed with the treating dialysis nurse. (2) CHF (congestive heart failure) Plan: Likely better. Chest x-ray done today was reviewed that shows bilateral bronchopneumonic pattern. (3) Healthcare-associated pneumonia Is this a current diagnosis for this admission?: Yes Plan: On IV antibiotics. Patient went into respiratory failure that necessitated intubation. So far sputum cultures are negative. Continue antibiotics and further management as per fork lift mechanic. (4) Hyperkalemia Is this a current diagnosis for this admission?: Yes Plan: Stable. (5) Anemia Is this a current diagnosis for this admission?: Yes Plan: Upper GI bleed that is transfusion dependent. As per fork lift mechanic .. would withhold erythropoietin for now given his severe hypertension. (6) Uncontrolled hypertension Is this a current diagnosis for this admission?: Yes Plan: Still uncontrolled. Might need IV medications given the fact that he might have difficulty to take his pills especially since he is intubated. (7) GI bleeding Qualifiers: GI bleed type/associated pathology: gastrointestinal hemorrhage with hematemesis Qualified Code(s): K92.0 - Hematemesis Is this a current diagnosis for this admission?: Yes Plan: Upper GI. Further management as per fork lift mechanic/surgery. (8) Respiratory failure Plan: Currently intubated.
--- NOTE | 2019-08-08 17:48 | PDOC CRITICAL CARE PROG REPORT ---
General Date:: 08/08/19 ICU Day:: 3 Ventilator Day:: 2 Hospital Day:: 3 Events in the past 12 to 24 Hours:: Patient was successfully intubated yesterday. His FiO2 has been weaning. His blood pressure has been somewhat labile but not hypotensive. He has had lower than normal blood pressures culminating in the discontinuation of Cardene. He is undergoing dialysis. Sputum cultures were taken after notable foul-smelling sputum was observed during intubation Review of systems relevant to events:: His chest x-ray is improved. No excessive airway pressure elevation. Plateau pressures Reason for ICU Addmission:: Hematemasis. Hypoxia. Hypertension - Medications: Medications reviewed and adjusted accordingly: Yes Vasopressors:: Cardene at 2.5 mg Sedation:: Propofol Physical Exam Vital Signs: Temp Pulse Resp BP Pulse Ox 97.3 F 76 18 131/64 H 98 08/07/19 16:00 08/08/19 02:46 08/08/19 02:46 08/07/19 18:00 08/08/19 04:25 Intake & Output 08/07/19 08/08/19 08/09/19 06:59 06:59 06:59 Intake Total 241 1653 Output Total 5000 0 Balance -4759 1653 Weight 117.7 kg 113.7 kg Weight/Height Weight 113.7 kg Height 6 ft 2 in General appearance: PRESENT: no acute distress, well-developed, well-nourished Exam: Intubated ill but nontoxic 39-year-old black male no active distress he is responsive on sedation Head exam: PRESENT: atraumatic, normocephalic Eye exam: PRESENT: conjunctival injection, conjunctiva pink, PERRLA. ABSENT: nystagmus, scleral icterus Neck exam: ABSENT: carotid bruit, JVD, lymphadenopathy, thyromegaly Respiratory exam: PRESENT: clear to auscultation jerald. ABSENT: rales, rhonchi, wheezes Cardiovascular exam: PRESENT: RRR, +S1, +S2. ABSENT: systolic murmur Pulses: PRESENT: normal dorsalis pedis pul, +2 pedal pulses bilateral Vascular exam: PRESENT: normal capillary refill. ABSENT: pallor GI/Abdominal exam: PRESENT: normal bowel sounds, soft. ABSENT: distended, guarding, mass, organolmegaly, rebound, tenderness Rectal exam: PRESENT: deferred Gentrourinary exam: PRESENT: indwelling catheter Extremities exam: PRESENT: pedal edema Musculoskeletal exam: ABSENT: deformity, dislocation Neurological exam: PRESENT: altered - Sedated on propofol. GCS: 2-1t-6. Focused psych exam: ABSENT: psychomotor agitation, restlessness Skin exam: PRESENT: dry, intact, warm. ABSENT: cyanosis, rash Tubes/Lines: PRESENT: Endotracheal Tube, Central Line, Arterial Catheter, Dialysis catheter, Other - OG tube, [place] Laboratory/Radiographs Laboratory Results: 08/08/19 07:00 08/08/19 07:00 08/07/19 08/07/19 08/07/19 05:24 06:55 08:27 WBC RBC Hgb Hct MCV MCH MCHC RDW Plt Count Seg Neutrophils % Carbonic Acid 1.19 HCO3/H2CO3 Ratio 21:1 ABG pH 7.44 ABG pCO2 39.4 ABG pO2 69.1 L ABG HCO3 25.9 H ABG O2 Saturation 94.4 ABG Base Excess 1.6 FiO2 70% Sodium Potassium Chloride Carbon Dioxide Anion Gap BUN Creatinine Est GFR ( Amer) Glucose Lactic Acid Calcium Phosphorus Magnesium Total Bilirubin AST Alkaline Phosphatase Ammonia Total Protein Albumin Triglycerides 67 Blood Type AB POSITIVE Antibody Screen NEGATIVE 08/07/19 08/07/19 08/07/19 13:40 13:42 17:21 WBC 15.5 H RBC 2.12 L Hgb 6.4 L Hct 18.7 L MCV 88 MCH 30.2 MCHC 34.2 RDW 15.5 H Plt Count 83 L Seg Neutrophils % Carbonic Acid 1.51 H HCO3/H2CO3 Ratio 17:1 ABG pH 7.34 L ABG pCO2 50.2 H ABG pO2 121.6 H ABG HCO3 26.4 H ABG O2 Saturation 98.2 H ABG Base Excess 0.4 FiO2 80% Sodium Potassium Chloride Carbon Dioxide Anion Gap BUN Creatinine Est GFR ( Amer) Glucose Lactic Acid 0.6 L Calcium Phosphorus Magnesium Total Bilirubin AST Alkaline Phosphatase Ammonia Total Protein Albumin Triglycerides Blood Type Antibody Screen 08/08/19 08/08/19 08/08/19 03:41 07:00 07:00 WBC 14.1 H RBC 1.96 L Hgb 5.9 L Hct 17.3 L MCV 89 MCH 30.1 MCHC 34.0 RDW 16.1 H Plt Count 89 L Seg Neutrophils % 82.3 H Carbonic Acid 1.10 HCO3/H2CO3 Ratio 21:1 ABG pH 7.42 ABG pCO2 36.5 ABG pO2 73.2 L ABG HCO3 23.4 ABG O2 Saturation 95.1 ABG Base Excess -0.9 FiO2 40% Sodium Potassium Chloride Carbon Dioxide Anion Gap BUN Creatinine Est GFR ( Amer) Glucose Lactic Acid Calcium Phosphorus Magnesium Total Bilirubin AST Alkaline Phosphatase Ammonia < 8.7 L Total Protein Albumin Triglycerides Blood Type Antibody Screen 08/08/19 07:00 WBC RBC Hgb Hct MCV MCH MCHC RDW Plt Count Seg Neutrophils % Carbonic Acid HCO3/H2CO3 Ratio ABG pH ABG pCO2 ABG pO2 ABG HCO3 ABG O2 Saturation ABG Base Excess FiO2 Sodium 138.8 Potassium 5.0 Chloride 98 Carbon Dioxide 24 Anion Gap 17 BUN 89 H Creatinine 11.57 H Est GFR ( Amer) 6 L Glucose 92 Lactic Acid Calcium 7.7 L Phosphorus 7.2 H Magnesium 1.9 Total Bilirubin 1.7 H AST 16 L Alkaline Phosphatase 47 Ammonia Total Protein 5.8 L Albumin 3.0 L Triglycerides Blood Type Antibody Screen 08/06/19 08/06/19 08/06/19 13:05 13:05 13:05 Creatine Kinase 770 H Troponin I 0.052 NT-Pro-B Natriuret Pep 78858 H 08/06/19 08/07/19 22:46 05:24 Creatine Kinase Troponin I 0.073 0.084 NT-Pro-B Natriuret Pep Impressions: KUB X-Ray 08/07/19 15:19 IMPRESSION: Limited exam for placement of NG tube as described. Chest X-Ray 08/06/19 13:28 IMPRESSION: Acute patchy bilateral and basilar predominant parenchymal opacities. Differential considerations include pulmonary edema multifocal pneumonia. Chest X-Ray 08/07/19 00:00 IMPRESSION: Increasing bilateral alveolar airspace disease. Chest X-Ray 08/07/19 00:00 IMPRESSION: Increasing bilateral alveolar airspace disease. Chest X-Ray 08/07/19 00:00 IMPRESSION: 1. Diffuse bilateral alveolar airspace disease unchanged from earlier film. 2. Endotracheal tube and central line have been added as described. KUB X-Ray 08/07/19 15:19 IMPRESSION: Limited exam for placement of NG tube as described. Chest X-Ray 08/08/19 06:00 IMPRESSION: 1. Unchanged diffuse bilateral alveolar opacities. 2. Tubes and lines as above. All labs, radiographs, diagnostic studies and EKGs were personally reviewed: Yes In addition, reports of radiographic and diagnostic studies were read: Yes Assessment and Plan - Diagnosis (1) Acute respiratory failure with hypoxia Is this a current diagnosis for this admission?: Yes Plan: Improving. Attempted SBT. Unable to maintain adequate Vt (2) Pneumonia Qualifiers: Pneumonia type: due to unspecified organism Laterality: bilateral Lung location: unspecified part of lung Qualified Code(s): J18.9 - Pneumonia, unspecified organism Is this a current diagnosis for this admission?: Yes (3) Acute blood loss anemia Is this a current diagnosis for this admission?: Yes Plan: No further bleeding but H/H still below 7. (4) Upper GI bleeding Is this a current diagnosis for this admission?: Yes Plan: No bleeding noted past 24 hours (5) Hypertensive urgency Is this a current diagnosis for this admission?: Yes (6) CKD stage 5 due to type 2 diabetes mellitus Is this a current diagnosis for this admission?: Yes (7) Dependence on renal dialysis Is this a current diagnosis for this admission?: Yes Plan Summary: 08.08.19: Patient's chest x-ray has improved and we are awaiting cultures while continue antibiotics. He is still not suitable for vent liberation and will be maintained on current settings with PEEP being lowered to 5 and FiO2 being lowered to 35%. He was dialyzed today and we will determine daily fluid status. Blood pressure has still been an issue and he is currently on and off of Cardene. Have adjusted his hydralazine and will follow accordingly. He has had no further active bleeding that can be seen and we have started tube feeds. He will be transfused 2 units. 08.07.19: Patient's respiratory status has worsened and we discussed the need for mechanical ventilation due to his hypoxia and increased respiratory rate. He was successfully intubated however there was noted to be foul-smelling secretions. I am concerned that this may represent Klebsiella or Pseudomonas. Have discontinued vancomycin at this point but will await sputum Gram stain and cultures to adjudicate his current Zosyn regimen. He is not hypotensive and in fact is requiring Cardene for control of his blood pressure. We will attempt to keep blood pressure between 140-160 mmHg recognizing that a gentle and judicious balance between elevation in blood pressure to keep cerebral blood flow intact in the face of upper GI bleed with varices. We will start nutritional support. Given the report by the surgeon this appears to be a Sharon-Thakkar process most likely brought on by cough induced nausea and emesis. He was given DDAVP to control renal failure induced platelet dysfunction. Continue to monitor for any further bleeding via the OG tube. Patient will need IV access and he gave consent prior to intubation. He agreed to central venous access and arterial catheter. From respiratory standpoint we will control oxygenation with PEEP and keep FiO2 less than 60. Follow if blood cultures and Gram stain and sputum cultures He will not require dialysis today. Monitor his hemoglobin hematocrit and metabolic profile. Repeat ABG. Critical Time Critical Time (minutes): 40 Level of Care: ICU -: 1. The care of a critical patient is a dynamic process. This note is a retail sales representative synopsis but static in nature. The timeframe for treatments given in order is not necessary the actual time these treatments may have been done. 2. This patient requires critical care secondary to ongoing requirements for therapy not offered or safe outside the critical care environment. Transfer to a lower level of care with altered life or limb morbidity and mortality. 3. Multidisciplinary rounds completed. 4. ABCDE bundle addressed. 5. MPOA: Fiancee Code Status: Full
[2019-08-08] MEDS ORDERED: DEXMEDETOMIDINE IN 0.9 % NACL 400 MCG/100 ML RTUPB IV PRN (17:50)
[2019-08-08] MEDS ORDERED: VANCOMYCIN HCL 750 MG in DEXTROSE 5%-WATER 250 ML IV SCH (18:00)
[2019-08-08] MEDS ORDERED: HYDRALAZINE HCL 50 MG TABLET PO SCH (18:00)
[2019-08-08] MEDS ORDERED: HYDRALAZINE HCL 50 MG TABLET PO ONE (18:00)
--- NOTE | 2019-08-08 19:34 | PDOC PROGRESS REPORT ---
Subjective Progress Note for:: 08/08/19 Subjective:: This is a 39-year-old male with anemia and questionable upper GI bleeding. The patient is status post EGD. He was found to have distal esophageal hematomas, consistent with recent bleeding. Currently, he is intubated and sedated. A review of systems is unobtainable. The nurses report that he has had no further upper GI bleeding. Reason For Visit: END STAGE RENAL DISEASE ON HEMODIALYSIS, Physical Exam Vital Signs: Temp Pulse Resp BP Pulse Ox 98.8 F 78 19 163/77 H 93 08/08/19 12:10 08/08/19 18:00 08/08/19 18:00 08/08/19 18:00 08/08/19 18:00 Intake & Output 08/07/19 08/08/19 08/09/19 06:59 06:59 06:59 Intake Total 241 1703 1408 Output Total 5000 0 Balance -4759 1703 1408 Weight 117.7 kg 113.7 kg General appearance: PRESENT: other - Intubated and sedated Head exam: PRESENT: atraumatic, normocephalic Eye exam: ABSENT: scleral icterus Neck exam: ABSENT: thyromegaly, tracheal deviation, tracheostomy Respiratory exam: PRESENT: other - Coarse breath sounds bilaterally Cardiovascular exam: ABSENT: tachycardia GI/Abdominal exam: PRESENT: soft. ABSENT: distended, tenderness Rectal exam: PRESENT: deferred Neurological exam: ABSENT: alert, awake Focused psych exam: PRESENT: other - Sedated Results Laboratory Results: 08/08/19 09:32 08/08/19 07:00 08/07/19 08/08/19 08/08/19 06:55 03:41 07:00 WBC RBC Hgb Hct MCV MCH MCHC RDW Plt Count Seg Neutrophils % Carbonic Acid 1.10 HCO3/H2CO3 Ratio 21:1 ABG pH 7.42 ABG pCO2 36.5 ABG pO2 73.2 L ABG HCO3 23.4 ABG O2 Saturation 95.1 ABG Base Excess -0.9 FiO2 40% Sodium Potassium Chloride Carbon Dioxide Anion Gap BUN Creatinine Est GFR ( Amer) Glucose Calcium Phosphorus Magnesium Total Bilirubin AST Alkaline Phosphatase Ammonia < 8.7 L Total Protein Albumin Blood Type AB POSITIVE Antibody Screen NEGATIVE 08/08/19 08/08/19 08/08/19 07:00 07:00 09:32 WBC 14.1 H 15.7 H RBC 1.96 L 2.18 L Hgb 5.9 L 6.5 L Hct 17.3 L 19.2 L MCV 89 88 MCH 30.1 29.8 MCHC 34.0 33.9 RDW 16.1 H 15.8 H Plt Count 89 L 93 L Seg Neutrophils % 82.3 H Carbonic Acid HCO3/H2CO3 Ratio ABG pH ABG pCO2 ABG pO2 ABG HCO3 ABG O2 Saturation ABG Base Excess FiO2 Sodium 138.8 Potassium 5.0 Chloride 98 Carbon Dioxide 24 Anion Gap 17 BUN 89 H Creatinine 11.57 H Est GFR ( Amer) 6 L Glucose 92 Calcium 7.7 L Phosphorus 7.2 H Magnesium 1.9 Total Bilirubin 1.7 H AST 16 L Alkaline Phosphatase 47 Ammonia Total Protein 5.8 L Albumin 3.0 L Blood Type Antibody Screen 08/06/19 08/06/19 08/06/19 13:05 13:05 13:05 Creatine Kinase 770 H Troponin I 0.052 NT-Pro-B Natriuret Pep 36207 H 08/06/19 08/07/19 22:46 05:24 Creatine Kinase Troponin I 0.073 0.084 NT-Pro-B Natriuret Pep Impressions: KUB X-Ray 08/07/19 15:19 IMPRESSION: Limited exam for placement of NG tube as described. Chest X-Ray 08/08/19 06:00 IMPRESSION: 1. Unchanged diffuse bilateral alveolar opacities. 2. Tubes and lines as above. Assessment & Plan - Diagnosis (1) GI bleeding Qualifiers: GI bleed type/associated pathology: gastrointestinal hemorrhage with hematemesis Qualified Code(s): K92.0 - Hematemesis Is this a current diagnosis for this admission?: Yes - Time Time Spent with patient: Less than 15 minutes - Plan Summary Plan Summary: This is a 39-year-old male with a history of recent upper GI bleeding. The bleeding source appears to be in the distal esophagus. It could be related to a Sharon-Thakkar tear or other pathologies. His bleeding appears to have stopped. At this time, surgery has no further input. Will defer treatment to medicine. If the patient begins bleeding again from his distal esophagus, would recommend transfer to higher level of care. Surgery will sign off at this time. Please renotify with any questions or concerns.
[2019-08-08 21:28] LABS: ARTERIAL BLOOD BASE EXCESS 1.7 mmol/L; ARTERIAL BLOOD H2CO3 1.04 mmol/L (1.05-1.35); ARTERIAL BLOOD HCO3 25.1 mmol/L (20-24); ARTERIAL BLOOD O2 SATURATION 92.4 % (94-98); ARTERIAL BLOOD PCO2 34.4 mmHg (35-45); ARTERIAL BLOOD PH 7.48 (7.35-7.45); ARTERIAL BLOOD PO2 58.7 mmHg (80-100); ARTERIAL BLOOD TOTAL CO2 26.2 mmol/L (23-27)
[2019-08-08 21:32] LABS: ARTERIAL BLOOD FIO2 35%
[2019-08-08] MEDS: ATORVASTATIN CALCIUM 10 MG TABLET PO SCH (23:27)
[2019-08-09] MEDS: PIPERACILLIN SODIUM/TAZOBACTAM 2.25 GM in NORMAL SALINE 50 ML IV SCH ×3 (01:06→18:16)
[2019-08-09] MEDS: HYDRALAZINE HCL 50 MG TABLET PO SCH ×3 (01:06→18:17)
[2019-08-09] MEDS: NICARDIPINE HCL RTU, ISO-OS 20 MG/200 ML RTUINJ IV PRN ×2 (01:12→08:11)
[2019-08-09] MEDS: IPRATROPIUM/ALBUTEROL 0.5-2.5 MG/3 ML AMPUL NEB SCH ×4 (01:40→21:00)
[2019-08-09 04:16] LABS: ARTERIAL BLOOD BASE EXCESS 2.3 mmol/L; ARTERIAL BLOOD FIO2 50%; ARTERIAL BLOOD H2CO3 1.11 mmol/L (1.05-1.35); ARTERIAL BLOOD HCO3 26.1 mmol/L (20-24); ARTERIAL BLOOD O2 SATURATION 91.2 % (94-98); ARTERIAL BLOOD PH 7.47 (7.35-7.45); ARTERIAL BLOOD PO2 56.5 mmHg (80-100); ARTERIAL BLOOD TOTAL CO2 27.3 mmol/L (23-27)
[2019-08-09 04:25] LABS: ABSOLUTE BASOPHILS # (AUTO) 0.1 10^3/uL (0.0-0.2); ABSOLUTE EOSINOPHILS # (AUTO) 0.5 10^3/uL (0.0-0.6); ABSOLUTE LYMPHOCYTES (AUTO) 1.3 10^3/uL (0.5-4.7); ABSOLUTE MONOCYTES (AUTO) 1.2 10^3/uL (0.1-1.4); ABSOLUTE NEUT (AUTO) 9.9 10^3/uL (1.7-8.2); BASOPHILS % (AUTO) 0.5 % (0-2); EOSINOPHILS % (AUTO) 3.6 % (0-6); HEMATOCRIT 22.1 % (37.9-51.0); MEAN CORPUSCULAR HEMOGLOBIN 29.5 pg (27.0-33.4); MEAN CORPUSCULAR HGB CONC 34.4 g/dL (32.0-36.0); MEAN CORPUSCULAR VOLUME 86 fl (80-97); MONOCYTES % (AUTO) 9.4 % (3-13); RED BLOOD COUNT 2.58 10^6/uL (4.35-5.55); RED CELL DISTRIBUTION WIDTH 15.4 % (11.5-14.0); SEGMENTED NEUTROPHILS % (AUTO) 76.5 % (42-78); TOTAL CELLS COUNTED % (AUTO) 100 %
[2019-08-09 04:35] LABS: ANION GAP 13 (5-19); CALCIUM 7.6 mg/dL (8.4-10.2); CARBON DIOXIDE 27 mmol/L (22-30); CHLORIDE 96 mmol/L (98-107); GLUCOSE 85 mg/dL (75-110); PHOSPHORUS 5.7 mg/dL (2.5-4.5); POTASSIUM 4.1 mmol/L (3.6-5.0)
[2019-08-09 04:51] LABS: BLOOD UREA NITROGEN 56 mg/dL (7-20)
[2019-08-09] MEDS: CLONIDINE HCL 0.1 MG TABLET PO SCH ×3 (05:08→22:32)
[2019-08-09] MEDS: MINERAL OIL/PETROLATUM,WHITE OPH OINT 3.5 GM OU SCH ×3 (05:12→22:32)
[2019-08-09 05:25] LABS: HEMOGLOBIN 7.6 g/dL (13.5-17.0); PLATELET COUNT 93 10^3/uL (150-450)
--- NOTE | 2019-08-09 08:39 | RADIOLOGY REPORT (SQ) ---
EXAM DESCRIPTION: CHEST SINGLE VIEW COMPLETED DATE/TIME: 08/09/2019 6:44 am REASON FOR STUDY: pneumonia COMPARISON: 08/08/2019. EXAM PARAMETERS: NUMBER OF VIEWS: One view. TECHNIQUE: Single frontal radiographic view of the chest acquired. RADIATION DOSE: NA LIMITATIONS: None. FINDINGS: LUNGS AND PLEURA: Bilateral alveolar airspace disease unchanged. MEDIASTINUM AND HILAR STRUCTURES: No masses. Contour normal. HEART AND VASCULAR STRUCTURES: Stable cardiomegaly. BONES: No acute findings. HARDWARE: The endotracheal tube is been removed. Stable central line and multi lumen catheter. OTHER: No other significant finding. IMPRESSION: NO CHANGE IN APPEARANCE OF THE CHEST. TECHNICAL DOCUMENTATION: JOB ID: [id number] [employer]- All Rights Reserved Reading location - IP/workstation name: [email or web address]
[2019-08-09] MEDS: AMLODIPINE BESYLATE 10 MG TABLET PO SCH (10:21)
[2019-08-09] MEDS: CARVEDILOL 12.5 MG TABLET PO SCH ×2 (10:23→22:31)
[2019-08-09] MEDS: SEVELAMER HCL 800 MG TABLET PO SCH ×2 (10:24→18:18)
--- NOTE | 2019-08-09 12:47 | PDOC PROGRESS REPORT ---
Subjective Progress Note for:: 08/09/19 Reason For Visit: Patient seen in the ICU today. He was extubated last night and is presently doing well. He denies any history of chest pain palpitations or shortness of breath while sitting on the recliner. Appetite is seemingly better. Labs and medications were reviewed. Chest x-ray shows stable but unchanged bilateral fluffy airspace disease. Physical Exam Vital Signs: Temp Pulse Resp BP Pulse Ox 98.2 F 73 17 135/71 H 97 08/09/19 12:00 08/09/19 12:00 08/09/19 12:00 08/09/19 12:00 08/09/19 12:00 Intake & Output 08/08/19 08/09/19 08/10/19 06:59 06:59 06:59 Intake Total 1703 2067 575 Output Total 0 3245 110 Balance 1703 -1178 465 Weight 113.7 kg 115.2 kg General appearance: PRESENT: no acute distress Respiratory exam: PRESENT: clear to auscultation jerald, decreased breath sounds. ABSENT: crackles Cardiovascular exam: PRESENT: +S1, +S2 GI/Abdominal exam: PRESENT: normal bowel sounds, soft. ABSENT: organomegaly, tenderness Extremities exam: ABSENT: pedal edema Neurological exam: PRESENT: alert, awake, oriented to person, oriented to place Psychiatric exam: PRESENT: appropriate affect Results Laboratory Results: 08/09/19 04:06 08/09/19 04:06 08/07/19 08/08/19 08/09/19 06:55 21:00 04:06 WBC RBC Hgb Hct MCV MCH MCHC RDW Plt Count Seg Neutrophils % Carbonic Acid 1.04 L HCO3/H2CO3 Ratio 24:1 ABG pH 7.48 H ABG pCO2 34.4 L ABG pO2 58.7 L ABG HCO3 25.1 H ABG O2 Saturation 92.4 L ABG Base Excess 1.7 FiO2 35% Sodium Potassium Chloride Carbon Dioxide Anion Gap BUN Creatinine Est GFR ( Amer) Glucose Calcium Phosphorus Magnesium Ammonia < 8.7 L Blood Type AB POSITIVE Antibody Screen NEGATIVE 08/09/19 08/09/19 08/09/19 04:06 04:06 04:06 WBC 13.0 H RBC 2.58 L Hgb 7.6 L Hct 22.1 L MCV 86 MCH 29.5 MCHC 34.4 RDW 15.4 H Plt Count 93 L Seg Neutrophils % 76.5 Carbonic Acid 1.11 HCO3/H2CO3 Ratio 23:1 ABG pH 7.47 H ABG pCO2 37.0 ABG pO2 56.5 L ABG HCO3 26.1 H ABG O2 Saturation 91.2 L ABG Base Excess 2.3 FiO2 50% Sodium 136.4 L Potassium 4.1 Chloride 96 L Carbon Dioxide 27 Anion Gap 13 BUN 56 H D Creatinine 8.68 H Est GFR ( Amer) 8 L Glucose 85 Calcium 7.6 L Phosphorus 5.7 H Magnesium 1.9 Ammonia Blood Type Antibody Screen 08/06/19 08/06/19 08/06/19 13:05 13:05 13:05 Creatine Kinase 770 H Troponin I 0.052 NT-Pro-B Natriuret Pep 58275 H 08/06/19 08/07/19 22:46 05:24 Creatine Kinase Troponin I 0.073 0.084 NT-Pro-B Natriuret Pep Impressions: KUB X-Ray 08/07/19 15:19 IMPRESSION: Limited exam for placement of NG tube as described. Chest X-Ray 08/09/19 06:00 IMPRESSION: NO CHANGE IN APPEARANCE OF THE CHEST. Assessment & Plan - Diagnosis (1) End-stage renal disease on hemodialysis Is this a current diagnosis for this admission?: Yes Plan: Plan for dialysis in the morning. Orders have been placed. (2) CHF (congestive heart failure) Plan: Likely better. Chest x-ray done today was reviewed that shows bilateral bronchopneumonic pattern. (3) Healthcare-associated pneumonia Is this a current diagnosis for this admission?: Yes Plan: On IV antibiotics. Patient went into respiratory failure that necessitated intubation. Currently extubated. So far sputum cultures are negative. Continue antibiotics and further management as per head machinist. (4) Hyperkalemia Is this a current diagnosis for this admission?: Yes Plan: Resolved. (5) Anemia Is this a current diagnosis for this admission?: Yes Plan: Current hemoglobin 7.6 and stable. Will initiate erythropoietin from tomorrow as long as blood pressure remains stable. (6) Uncontrolled hypertension Is this a current diagnosis for this admission?: Yes Plan: Currently controlled. (7) GI bleeding Qualifiers: GI bleed type/associated pathology: gastrointestinal hemorrhage with hematemesis Qualified Code(s): K92.0 - Hematemesis Is this a current diagnosis for this admission?: Yes Plan: Upper GI. Further management as per head machinist/surgery. (8) Respiratory failure Plan: Had been intubated but currently extubated and stable.
--- NOTE | 2019-08-09 14:34 | PDOC CRITICAL CARE PROG REPORT ---
General Date:: 08/09/19 ICU Day:: 4 Hospital Day:: 4 Resuscitation Status: Full Code Medical Power of Blasting Machine Operator: Dorys Events in the past 12 to 24 Hours:: 08.09.19: The patient had been on vent weaning protocol throughout the day yesterday. He was successfully liberated from the ventilator during the evening. This morning he offers no complaints other than being hungry. He has intermittent productive cough with blood mixed in with sputum. He has had no vomiting. 08.08.19: Patient was successfully intubated yesterday. His FiO2 has been weaning. His blood pressure has been somewhat labile but not hypotensive. He has had lower than normal blood pressures culminating in the discontinuation of Cardene. He is undergoing dialysis. Sputum cultures were taken after notable foul-smelling sputum was observed during intubation Review of systems relevant to events:: His chest x-ray is improved. No excessive airway pressure elevation. Plateau pressures Review of systems relevant to events:: Patient's blood pressure has been difficult to control but is now improved and off Cardene. He denies and clinically has no stridor. No dyspnea. Reason for ICU Addmission:: Hematemasis. Hypoxia. Hypertension - Medications: Vasopressors:: Cardene off Sedation:: none Physical Exam Vital Signs: Temp Pulse Resp BP Pulse Ox 98.2 F 71 17 135/71 H 95 08/09/19 12:00 08/09/19 13:50 08/09/19 13:50 08/09/19 12:00 08/09/19 13:50 Intake & Output 08/08/19 08/09/19 08/10/19 06:59 06:59 06:59 Intake Total 1703 2067 575 Output Total 0 3245 110 Balance 1703 -1178 465 Weight 113.7 kg 115.2 kg Weight/Height Weight 115.2 kg Height 6 ft 2 in General appearance: PRESENT: no acute distress, morbidly obese. ABSENT: mild distress, severe distress Exam: Extubated, non-toxic, ill, morbidly obese, ill, NAD. AA&OX3 Eye exam: PRESENT: conjunctiva pink, EOMI, PERRLA. ABSENT: conjunctival injection, nystagmus, scleral icterus Mouth exam: PRESENT: moist, neck supple Neck exam: PRESENT: other. ABSENT: carotid bruit, JVD, lymphadenopathy, thyromegaly Respiratory exam: PRESENT: clear to auscultation jerald. ABSENT: rales, rhonchi, stridor, wheezes Cardiovascular exam: PRESENT: RRR, +S1, +S2. ABSENT: diastolic murmur, rubs, systolic murmur Pulses: PRESENT: +2 pedal pulses bilateral Vascular exam: PRESENT: normal capillary refill. ABSENT: pallor GI/Abdominal exam: PRESENT: normal bowel sounds, soft. ABSENT: ascites, distended, firm, mass, Hernandez's sign, rigid, tenderness Rectal exam: PRESENT: deferred Gentrourinary exam: PRESENT: indwelling catheter Extremities exam: PRESENT: tenderness Musculoskeletal exam: ABSENT: deformity, dislocation Neurological exam: PRESENT: alert, awake, oriented to person, oriented to place, oriented to time, oriented to situation, CN II-XII grossly intact. ABSENT: motor sensory deficit Psychiatric exam: PRESENT: appropriate affect, normal mood Focused psych exam: ABSENT: psychomotor agitation, restlessness Skin exam: PRESENT: dry, intact, warm. ABSENT: cyanosis, rash Tubes/Lines: PRESENT: Central Line, Arterial Catheter, Other - lincoln Laboratory/Radiographs Laboratory Results: 08/09/19 04:06 08/09/19 04:06 08/07/19 08/08/19 08/09/19 06:55 21:00 04:06 WBC RBC Hgb Hct MCV MCH MCHC RDW Plt Count Seg Neutrophils % Carbonic Acid 1.04 L HCO3/H2CO3 Ratio 24:1 ABG pH 7.48 H ABG pCO2 34.4 L ABG pO2 58.7 L ABG HCO3 25.1 H ABG O2 Saturation 92.4 L ABG Base Excess 1.7 FiO2 35% Sodium Potassium Chloride Carbon Dioxide Anion Gap BUN Creatinine Est GFR ( Amer) Glucose Calcium Phosphorus Magnesium Ammonia < 8.7 L Blood Type AB POSITIVE Antibody Screen NEGATIVE 08/09/19 08/09/19 08/09/19 04:06 04:06 04:06 WBC 13.0 H RBC 2.58 L Hgb 7.6 L Hct 22.1 L MCV 86 MCH 29.5 MCHC 34.4 RDW 15.4 H Plt Count 93 L Seg Neutrophils % 76.5 Carbonic Acid 1.11 HCO3/H2CO3 Ratio 23:1 ABG pH 7.47 H ABG pCO2 37.0 ABG pO2 56.5 L ABG HCO3 26.1 H ABG O2 Saturation 91.2 L ABG Base Excess 2.3 FiO2 50% Sodium 136.4 L Potassium 4.1 Chloride 96 L Carbon Dioxide 27 Anion Gap 13 BUN 56 H D Creatinine 8.68 H Est GFR ( Amer) 8 L Glucose 85 Calcium 7.6 L Phosphorus 5.7 H Magnesium 1.9 Ammonia Blood Type Antibody Screen 08/06/19 08/06/19 08/06/19 13:05 13:05 13:05 Creatine Kinase 770 H Troponin I 0.052 NT-Pro-B Natriuret Pep 57073 H 08/06/19 08/07/19 22:46 05:24 Creatine Kinase Troponin I 0.073 0.084 NT-Pro-B Natriuret Pep Impressions: KUB X-Ray 08/07/19 15:19 IMPRESSION: Limited exam for placement of NG tube as described. Chest X-Ray 08/09/19 06:00 IMPRESSION: NO CHANGE IN APPEARANCE OF THE CHEST. All labs, radiographs, diagnostic studies and EKGs were personally reviewed: Yes In addition, reports of radiographic and diagnostic studies were read: Yes Assessment and Plan - Diagnosis (1) Acute respiratory failure with hypoxia Is this a current diagnosis for this admission?: Yes Plan: Improved. Successful extubation. Still has consolidations bilaterally. Concern for autoimmune process. (2) Pneumonia Qualifiers: Pneumonia type: due to unspecified organism Laterality: bilateral Lung location: unspecified part of lung Qualified Code(s): J18.9 - Pneumonia, unspecified organism Is this a current diagnosis for this admission?: Yes Plan: Continue antibiotics. ANCA sent for autoimmune disease (3) Acute blood loss anemia Is this a current diagnosis for this admission?: Yes Plan: Improved (4) Upper GI bleeding Is this a current diagnosis for this admission?: Yes Plan: No bleeding noted . Start diet (5) Hypertensive urgency Is this a current diagnosis for this admission?: Yes (6) CKD stage 5 due to type 2 diabetes mellitus Is this a current diagnosis for this admission?: Yes (7) Dependence on renal dialysis Is this a current diagnosis for this admission?: Yes Plan Summary: 08.09.19: Patient has successfully tolerated extubation. While he is asleep he has oxygen desaturation and we have ordered BiPAP for those times and also at night. I am concerned given his chest x-ray findings that there may be an autoimmune component as well as a con commitment pneumonia with the consolidations. Ordered ANCA and inflammatory versus to evaluate. Will consider CT scan of the chest also to evaluate. Cultures from the sputum are growing fungal elements which is not uncommon given the antibiotics. Would be unusual to have a fungal pneumonia with Catherine and suspect this is oral contaminant. His blood pressures are improved with oral medications. Will discontinue Lincoln today, and remove central line and arterial catheter 24 hours. Will plan on obtaining CT scan of chest prior to dialysis tomorrow if his chest x-ray is not improved. Continue supportive care. Will give another 24 hours with stabilize hemoglobin and hematocrit before considering DVT chemical prophylaxis 08.08.19: Patient's chest x-ray has improved and we are awaiting cultures while continue antibiotics. He is still not suitable for vent liberation and will be maintained on current settings with PEEP being lowered to 5 and FiO2 being lowered to 35%. He was dialyzed today and we will determine daily fluid status. Blood pressure has still been an issue and he is currently on and off of Cardene. Have adjusted his hydralazine and will follow accordingly. He has had no further active bleeding that can be seen and we have started tube feeds. He will be transfused 2 units. 08.07.19: Patient's respiratory status has worsened and we discussed the need for mechanical ventilation due to his hypoxia and increased respiratory rate. He was successfully intubated however there was noted to be foul-smelling secretions. I am concerned that this may represent Klebsiella or Pseudomonas. Have discontinued vancomycin at this point but will await sputum Gram stain and cultures to adjudicate his current Zosyn regimen. He is not hypotensive and in fact is requiring Cardene for control of his blood pressure. We will attempt to keep blood pressure between 140-160 mmHg recognizing that a gentle and judicious balance between elevation in blood pressure to keep cerebral blood flow intact in the face of upper GI bleed with varices. We will start nutritional support. Given the report by the surgeon this appears to be a Sharon-Thakkar process most likely brought on by cough induced nausea and emesis. He was given DDAVP to control renal failure induced platelet dysfunction. Continue to monitor for any further bleeding via the OG tube. Patient will need IV access and he gave consent prior to intubation. He agreed to central venous access and arterial catheter. From respiratory standpoint we will control oxygenation with PEEP and keep FiO2 less than 60. Follow if blood cultures and Gram stain and sputum cultures He will not require dialysis today. Monitor his hemoglobin hematocrit and metabolic profile. Repeat ABG. Critical Time Critical Time (minutes): 40 Level of Care: ICU -: 1. The care of a critical patient is a dynamic process. This note is a education courses sales representative synopsis but static in nature. The timeframe for treatments given in order is not necessary the actual time these treatments may have been done. 2. This patient requires critical care secondary to ongoing requirements for therapy not offered or safe outside the critical care environment. Transfer to a lower level of care with altered life or limb morbidity and mortality. 3. Multidisciplinary rounds completed. 4. ABCDE bundle addressed.
[2019-08-09] MEDS: PANTOPRAZOLE SODIUM 40 MG TABLET.DR PO SCH (18:17)
[2019-08-09] MEDS: AZITHROMYCIN 250 MG TABLET PO SCH (22:32)
[2019-08-09] MEDS: ATORVASTATIN CALCIUM 10 MG TABLET PO SCH (22:32)
[2019-08-10] MEDS: HYDRALAZINE HCL 50 MG TABLET PO SCH ×3 (01:47→17:29)
[2019-08-10] MEDS: PIPERACILLIN SODIUM/TAZOBACTAM 2.25 GM in NORMAL SALINE 50 ML IV SCH ×3 (01:48→17:29)
[2019-08-10] MEDS: IPRATROPIUM/ALBUTEROL 0.5-2.5 MG/3 ML AMPUL NEB SCH ×3 (02:13→13:52)
[2019-08-10 04:50] LABS: ANION GAP 15 (5-19); BLOOD UREA NITROGEN 68 mg/dL (7-20); CARBON DIOXIDE 26 mmol/L (22-30); CHLORIDE 96 mmol/L (98-107); GLUCOSE 128 mg/dL (75-110); POTASSIUM 4.1 mmol/L (3.6-5.0)
[2019-08-10] MEDS ORDERED: EPOETIN ALFA-EPBX 10,000 UNIT in SYRINGE, DISPOSABLE, 1 EACH IV PRN (05:00)
[2019-08-10] MEDS: CLONIDINE HCL 0.1 MG TABLET PO SCH ×3 (07:43→21:07)
[2019-08-10] MEDS: MINERAL OIL/PETROLATUM,WHITE OPH OINT 3.5 GM OU SCH (07:44)
[2019-08-10] MEDS: PANTOPRAZOLE SODIUM 40 MG TABLET.DR PO SCH ×2 (07:57→17:28)
[2019-08-10 08:14] LABS: ABSOLUTE BASOPHILS # (AUTO) 0.1 10^3/uL (0.0-0.2); ABSOLUTE EOSINOPHILS # (AUTO) 0.8 10^3/uL (0.0-0.6); ABSOLUTE LYMPHOCYTES (AUTO) 1.1 10^3/uL (0.5-4.7); ABSOLUTE MONOCYTES (AUTO) 0.9 10^3/uL (0.1-1.4); BASOPHILS % (AUTO) 0.9 % (0-2); EOSINOPHILS % (AUTO) 7.5 % (0-6); HEMATOCRIT 22.9 % (37.9-51.0); HEMOGLOBIN 8.1 g/dL (13.5-17.0); LYMPHOCYTES % (AUTO) 10.3 % (13-45); MEAN CORPUSCULAR HEMOGLOBIN 30.3 pg (27.0-33.4); MEAN CORPUSCULAR HGB CONC 35.1 g/dL (32.0-36.0); MEAN CORPUSCULAR VOLUME 86 fl (80-97); MONOCYTES % (AUTO) 8.6 % (3-13); PLATELET COUNT 115 10^3/uL (150-450); RED BLOOD COUNT 2.65 10^6/uL (4.35-5.55); RED CELL DISTRIBUTION WIDTH 15.2 % (11.5-14.0); SEGMENTED NEUTROPHILS % (AUTO) 72.7 % (42-78); TOTAL CELLS COUNTED % (AUTO) 100 %
[2019-08-10 08:29] LABS: PHOSPHORUS 7.1 mg/dL (2.5-4.5)
--- NOTE | 2019-08-10 09:43 | RADIOLOGY REPORT (SQ) ---
EXAM DESCRIPTION: CHEST SINGLE VIEW COMPLETED DATE/TIME: 08/10/2019 9:31 am REASON FOR STUDY: pneumonia COMPARISON: 08/09/2019 EXAM PARAMETERS: NUMBER OF VIEWS: One view. TECHNIQUE: Single frontal radiographic view of the chest acquired. RADIATION DOSE: NA LIMITATIONS: None. FINDINGS: LUNGS AND PLEURA: Improved but persistent patchy bilateral parenchymal opacities. No larg e effusion. No pneumothorax. MEDIASTINUM AND HILAR STRUCTURES: No masses. Contour normal. HEART AND VASCULAR STRUCTURES: Enlarged, stable. BONES: No acute findings. HARDWARE: Right internal jugular central venous catheter tip at cavoatrial junction. OTHER: No other significant finding. IMPRESSION: Improved but persistent patchy bilateral parenchymal opacities, likely representing pulm onary edema secondary to short-term interval improvement. TECHNICAL DOCUMENTATION: JOB ID: [id number] [employer]- All Rights Reserved Reading location - IP/workstation name: [email or web address]
[2019-08-10] MEDS ORDERED: HEPARIN SOD (PORCINE) 1,000 UNIT/ML 10 ML VIAL IV PRN (10:50)
[2019-08-10] MEDS: CARVEDILOL 12.5 MG TABLET PO SCH ×2 (12:10→21:08)
[2019-08-10] MEDS: SEVELAMER HCL 800 MG TABLET PO SCH ×2 (12:10→17:28)
[2019-08-10] MEDS: AMLODIPINE BESYLATE 10 MG TABLET PO SCH (12:10)
--- NOTE | 2019-08-10 13:35 | PDOC PROGRESS REPORT ---
Subjective Progress Note for:: 08/10/19 Reason For Visit: Patient seen in the ICU today for dialysis. He is undergoing dialysis without any issues. Patient denies any complaints of any chest pain or shortness of breath. Labs and medications were reviewed. Dialysis orders were reviewed with the treating dialysis nurse. Physical Exam Vital Signs: Temp Pulse Resp BP Pulse Ox 98.6 F 82 16 164/93 H 98 08/10/19 12:00 08/10/19 12:00 08/10/19 12:00 08/10/19 12:00 08/10/19 12:00 Intake & Output 08/09/19 08/10/19 08/11/19 06:59 06:59 06:59 Intake Total 2067 879 440 Output Total 3245 295 160 Balance -1178 584 280 Weight 115.2 kg 116 kg General appearance: PRESENT: no acute distress Respiratory exam: PRESENT: clear to auscultation jerald, decreased breath sounds. ABSENT: crackles Cardiovascular exam: PRESENT: +S1, +S2 GI/Abdominal exam: PRESENT: normal bowel sounds, soft. ABSENT: organomegaly, tenderness Extremities exam: ABSENT: pedal edema Neurological exam: PRESENT: alert, awake, oriented to person, oriented to place Psychiatric exam: PRESENT: appropriate affect Results Laboratory Results: 08/10/19 04:04 08/10/19 04:04 08/09/19 08/10/19 08/10/19 14:40 04:04 04:04 WBC 11.0 H RBC 2.65 L Hgb 8.1 L Hct 22.9 L MCV 86 MCH 30.3 MCHC 35.1 RDW 15.2 H Plt Count 115 L Seg Neutrophils % 72.7 Sodium 137.4 Potassium 4.1 Chloride 96 L Carbon Dioxide 26 Anion Gap 15 BUN 68 H Creatinine 10.43 H Est GFR ( Amer) 7 L Est GFR (Non-Af Amer) Glucose 128 H Calcium 8.0 L Phosphorus Magnesium C-Reactive Protein 190.5 H 08/10/19 04:04 WBC RBC Hgb Hct MCV MCH MCHC RDW Plt Count Seg Neutrophils % Sodium Cancelled Potassium Cancelled Chloride Cancelled Carbon Dioxide Cancelled Anion Gap Cancelled BUN Cancelled Creatinine Cancelled Est GFR ( Amer) Cancelled Est GFR (Non-Af Amer) Cancelled Glucose Cancelled Calcium Cancelled Phosphorus 7.1 H Magnesium 2.1 C-Reactive Protein 08/07/19 13:30 Tracheal Aspirate Gram Stain - Final 08/07/19 13:30 Tracheal Aspirate Sputum Culture - Final C.albicans/C.dubliniensis Normal Aleksandra 08/06/19 08/06/19 08/06/19 13:05 13:05 13:05 Creatine Kinase 770 H Troponin I 0.052 NT-Pro-B Natriuret Pep 84310 H 08/06/19 08/07/19 22:46 05:24 Creatine Kinase Troponin I 0.073 0.084 NT-Pro-B Natriuret Pep Impressions: KUB X-Ray 08/07/19 15:19 IMPRESSION: Limited exam for placement of NG tube as described. Chest X-Ray 08/10/19 00:00 IMPRESSION: Improved but persistent patchy bilateral parenchymal opacities, likely representing pulmonary edema secondary to short-term interval improvement. Assessment & Plan - Diagnosis (1) End-stage renal disease on hemodialysis Is this a current diagnosis for this admission?: Yes Plan: Patient on dialysis now. Vital signs are stable. Dialysis is being supervised to ensure safe and smooth procedure. Plan to remove approximately 2 L of fluid. Dialysis orders reviewed with the treating dialysis nurse. (2) CHF (congestive heart failure) Plan: Improved clinically and radiologically. (3) Healthcare-associated pneumonia Is this a current diagnosis for this admission?: Yes Plan: On IV antibiotics. Patient went into respiratory failure that necessitated intubation. Stays extubated day 2 now. Continue antibiotics and further management as per rent and miscellaneous remittance clerk. (4) Anemia Is this a current diagnosis for this admission?: Yes Plan: Current hemoglobin 8.1/7.6 and stable. (5) Uncontrolled hypertension Is this a current diagnosis for this admission?: Yes Plan: Currently controlled. (6) GI bleeding Qualifiers: GI bleed type/associated pathology: gastrointestinal hemorrhage with hematemesis Qualified Code(s): K92.0 - Hematemesis Is this a current diagnosis for this admission?: Yes Plan: Upper GI. Further management as per rent and miscellaneous remittance clerk/surgery. (7) Respiratory failure Plan: Had been intubated but currently extubated and stable.
--- NOTE | 2019-08-10 16:28 | XCELERA REPORT ---
[address] [address] Upper Extremity Arterial Evaluation Name: BROOK LOMBARDI Age: 39 yrs Gender: Male : 1980 Patient Status: Inpatient Patient Location: ICU^605^A Study Date: 08/10/2019 09:24 AM Procedure: A duplex scan of the upper extremity arteries was performed on the left. Dialysis fistula evaluation. Reason For Study: Evaluation for maturity of AV fistula Ordering Physician: KVNG NORIEGA Performed By: Orlando Sanchez Measurements and Calculations Right Left Mid Ulnar A PSV 76.7 cm/sec Dist Ulnar A PSV 181.8 cm/sec Dist Ulnar A PSV 181.8 cm/sec Mid Ulnar A PSV 76.7 cm/sec Left Side Arterial Evaluation Normal velocity and triphasic waveforms noted in the Brachial . Continuous waveform in the Radial artery, consistent with functioning Radio Cephalic fistula. Reversal of flow at the distal Radial artery is consistent with a degree of steal. Fistula 3.5 mm, 4.2 m/sec at he anastomosis. 2.5 mm, at the proximal fistula. 3.6 mm, at the mid fistula. 37.2 mm, at the upper fistula. Interpretation Summary A functioning left Radio Cephalic fistula is present. It may be amenable to use, based on size of over 7 mm. Steal is present in the Radial artery, this may not be clinically relevant. : KVNG NORIEGA, Mehdi >
--- NOTE | 2019-08-10 21:01 | PDOC CRITICAL CARE PROG REPORT ---
General Date:: 08/10/19 ICU Day:: 5 Hospital Day:: 5 Resuscitation Status: Full Code Medical Power of Burglar Alarm Operator: Dorys Events in the past 12 to 24 Hours:: The patient was extubated successfully 24 hours ago. O2 requirements have improved. He is currently now on nasal cannula. Blood pressures are much improved on oral therapy. Scheduled for dialysis today Review of systems relevant to events:: Subjectively endorses significant improvement in dyspnea. No further hemoptysis but still has occasional blood tinged sputum. Not excessive Blood pressures much improved. No headache, no fever, no chills. Reason for ICU Addmission:: Hematemasis. Hypoxia. Hypertension - Medications: Medications reviewed and adjusted accordingly: Yes Vasopressors:: None Sedation:: None Physical Exam Vital Signs: Temp Pulse Resp BP Pulse Ox 97.9 F 73 28 H 154/93 H 97 08/10/19 06:00 08/10/19 02:13 08/10/19 06:00 08/10/19 05:22 08/10/19 06:00 Intake & Output 08/09/19 08/10/19 08/11/19 06:59 06:59 06:59 Intake Total 2067 829 Output Total 3245 295 Balance -1178 534 Weight 115.2 kg 116 kg Weight/Height Weight 116 kg Height 6 ft 2 in General appearance: PRESENT: no acute distress, cooperative, morbidly obese Exam: Nontoxic communicative non-stridorous , obese, 39-year-old black male no acute distress appears older than stated age awake alert oriented x3 Head exam: PRESENT: atraumatic, normocephalic Eye exam: PRESENT: conjunctiva pink, EOMI, PERRLA. ABSENT: conjunctival injection, scleral icterus Mouth exam: PRESENT: neck supple Neck exam: PRESENT: other. ABSENT: carotid bruit, JVD, lymphadenopathy, thyromegaly Respiratory exam: PRESENT: unlabored. ABSENT: accessory muscle use, rales, rhonchi, tachypnea, wheezes Cardiovascular exam: PRESENT: RRR, +S1, +S2. ABSENT: diastolic murmur, rubs, systolic murmur Pulses: PRESENT: +2 pedal pulses bilateral Vascular exam: PRESENT: normal capillary refill. ABSENT: pallor GI/Abdominal exam: PRESENT: normal bowel sounds, soft. ABSENT: ascites, distended, guarding, mass, organolmegaly, rebound, tenderness Rectal exam: PRESENT: deferred Gentrourinary exam: ABSENT: indwelling catheter Extremities exam: PRESENT: pedal edema, other - Left arm fistula has thrill and bruit but mid portion has minimal thrill on palpation. Neurological exam: PRESENT: alert, awake, oriented to person, oriented to place, oriented to time, oriented to situation, CN II-XII grossly intact. ABSENT: motor sensory deficit Psychiatric exam: PRESENT: appropriate affect, normal mood. ABSENT: homicidal ideation, suicidal ideation Focused psych exam: ABSENT: pressured speech, psychomotor agitation, restlessness Skin exam: PRESENT: dry, intact, warm. ABSENT: cyanosis, rash Laboratory/Radiographs Laboratory Results: 08/10/19 04:04 08/09/19 08/10/19 14:40 04:04 Sodium 137.4 Potassium 4.1 Chloride 96 L Carbon Dioxide 26 Anion Gap 15 BUN 68 H Creatinine 10.43 H Est GFR ( Amer) 7 L Glucose 128 H Calcium 8.0 L C-Reactive Protein 190.5 H 08/07/19 13:30 Tracheal Aspirate Gram Stain - Final 08/07/19 13:30 Tracheal Aspirate Sputum Culture - Final C.albicans/C.dubliniensis Normal Aleksandra 08/06/19 08/06/19 08/06/19 13:05 13:05 13:05 Creatine Kinase 770 H Troponin I 0.052 NT-Pro-B Natriuret Pep 95534 H 08/06/19 08/07/19 22:46 05:24 Creatine Kinase Troponin I 0.073 0.084 NT-Pro-B Natriuret Pep Impressions: KUB X-Ray 08/07/19 15:19 IMPRESSION: Limited exam for placement of NG tube as described. Chest X-Ray 08/09/19 06:00 IMPRESSION: NO CHANGE IN APPEARANCE OF THE CHEST. KUB X-Ray 08/07/19 15:19 IMPRESSION: Limited exam for placement of NG tube as described. Chest X-Ray 08/10/19 00:00 IMPRESSION: Improved but persistent patchy bilateral parenchymal opacities, likely representing pulmonary edema secondary to short-term interval improveme nt. Chest X-Ray 08/10/19 00:00 IMPRESSION: Improved but persistent patchy bilateral parenchymal opacities, likely representing pulmonary edema secondary to short-term interval improvement. All labs, radiographs, diagnostic studies and EKGs were personally reviewed: Yes In addition, reports of radiographic and diagnostic studies were read: Yes Assessment and Plan - Diagnosis (1) Acute respiratory failure with hypoxia Is this a current diagnosis for this admission?: Yes Plan: Continues to improve. Consolidations . Still concern for autoimmune process. (2) Pneumonia Qualifiers: Pneumonia type: due to unspecified organism Laterality: bilateral Lung location: unspecified part of lung Qualified Code(s): J18.9 - Pneumonia, unspecified organism Is this a current diagnosis for this admission?: Yes Plan: Continue antibiotics. ANCA pending for autoimmune disease (3) Acute blood loss anemia Is this a current diagnosis for this admission?: Yes Plan: Improved. Follow up H/H: (4) Upper GI bleeding Is this a current diagnosis for this admission?: Yes Plan: From Sharon-Thakkar tear. No further bleeding. Tolerating diet (5) Hypertensive urgency Is this a current diagnosis for this admission?: Yes Plan: Resolved (6) CKD stage 5 due to type 2 diabetes mellitus Is this a current diagnosis for this admission?: Yes (7) Dependence on renal dialysis Is this a current diagnosis for this admission?: Yes (8) AV (arteriovenous fistula) Is this a current diagnosis for this admission?: Yes Plan: US shows maturity (10) H. pylori infection Is this a current diagnosis for this admission?: Yes Plan: Will need treatment on discharge Plan Summary: 08.10.19: For Dialysis today. May be able to start using AV fistula. Physical therapy ordered Follow up on labs. H/H is improved Follow-up on cultures Continue Azithromycin for total of 5 days. Day 2-3 of 5. Continue Zosyn 7 days. Day 4 of 7 today Patient has been off anticoagulation secondary to hemoptysis and hematemesis. Would start in 24 hours if stable. Hypertension has been an issue and now much better controlled on oral regimen. Has positive H. Pylori. Will need treatment at discharge. Would recommend sleep study 08.09.19: Patient has successfully tolerated extubation. While he is asleep he has oxygen desaturation and we have ordered BiPAP for those times and also at night. I am concerned given his chest x-ray findings that there may be an autoimmune component as well as a con commitment pneumonia with the consolidations. Ordered ANCA and inflammatory versus to evaluate. Will consider CT scan of the chest also to evaluate. Cultures from the sputum are growing fungal elements which is not uncommon given the antibiotics. Would be unusual to have a fungal pneumonia with Catherine and suspect this is oral contaminant. His blood pressures are improved with oral medications. Will discontinue Chu today, and remove central line and arterial catheter 24 hours. Will plan on obtaining CT scan of chest prior to dialysis tomorrow if his chest x-ray is not improved. Continue supportive care. Will give another 24 hours with stabilize hemoglobin and hematocrit before considering DVT chemical prophylaxis 08.08.19: Patient's chest x-ray has improved and we are awaiting cultures while continue antibiotics. He is still not suitable for vent liberation and will be maintained on current settings with PEEP being lowered to 5 and FiO2 being lowered to 35%. He was dialyzed today and we will determine daily fluid status. Blood pressure has still been an issue and he is currently on and off of Cardene. Have adjusted his hydralazine and will follow accordingly. He has had no further active bleeding that can be seen and we have started tube feeds. He will be transfused 2 units. 08.07.19: Patient's respiratory status has worsened and we discussed the need for mechanical ventilation due to his hypoxia and increased respiratory rate. He was successfully intubated however there was noted to be foul-smelling secretions. I am concerned that this may represent Klebsiella or Pseudomonas. Have discontinued vancomycin at this point but will await sputum Gram stain and cultures to adjudicate his current Zosyn regimen. He is not hypotensive and in fact is requiring Cardene for control of his blood pressure. We will attempt to keep blood pressure between 140-160 mmHg recognizing that a gentle and judicious balance between elevation in blood pressure to keep cerebral blood flow intact in the face of upper GI bleed with varices. We will start nutritional support. Given the report by the surgeon this appears to be a Sharon-Thakkar process most likely brought on by cough induced nausea and emesis. He was given DDAVP to control renal failure induced platelet dysfunction. Continue to monitor for any further bleeding via the OG tube. Patient will need IV access and he gave consent prior to intubation. He agreed to central venous access and arterial catheter. From respiratory standpoint we will control oxygenation with PEEP and keep FiO2 less than 60. Follow if blood cultures and Gram stain and sputum cultures He will not require dialysis today. Monitor his hemoglobin hematocrit and metabolic profile. Repeat ABG. Critical Time Critical Time (minutes): 0 - [id number] Level of Care: MEDICAL Within: within 48 hours -: 1. The care of a critical patient is a dynamic process. This note is a sales donor recruitment representative synopsis but static in nature. The timeframe for treatments given in order is not necessary the actual time these treatments may have been done. 2. This patient requires critical care secondary to ongoing requirements for therapy not offered or safe outside the critical care environment. Transfer to a lower level of care with altered life or limb morbidity and mortality. 3. Multidisciplinary rounds completed. 4. ABCDE bundle addressed.
[2019-08-10] MEDS: AZITHROMYCIN 250 MG TABLET PO SCH (21:07)
[2019-08-10] MEDS: ATORVASTATIN CALCIUM 10 MG TABLET PO SCH (21:07)
[2019-08-11] MEDS: PIPERACILLIN SODIUM/TAZOBACTAM 2.25 GM in NORMAL SALINE 50 ML IV SCH ×3 (01:02→17:31)
[2019-08-11] MEDS: HYDRALAZINE HCL 50 MG TABLET PO SCH ×3 (01:08→17:31)
[2019-08-11] MEDS: CLONIDINE HCL 0.1 MG TABLET PO SCH ×3 (05:06→21:52)
[2019-08-11] MEDS: PANTOPRAZOLE SODIUM 40 MG TABLET.DR PO SCH ×2 (05:06→17:31)
[2019-08-11 05:35] LABS: ABSOLUTE BASOPHILS # (AUTO) 0.1 10^3/uL (0.0-0.2); ABSOLUTE EOSINOPHILS # (AUTO) 0.7 10^3/uL (0.0-0.6); ABSOLUTE LYMPHOCYTES (AUTO) 1.3 10^3/uL (0.5-4.7); ABSOLUTE NEUT (AUTO) 7.3 10^3/uL (1.7-8.2); BASOPHILS % (AUTO) 0.8 % (0-2); EOSINOPHILS % (AUTO) 7.2 % (0-6); HEMATOCRIT 24.5 % (37.9-51.0); HEMOGLOBIN 8.4 g/dL (13.5-17.0); LYMPHOCYTES % (AUTO) 12.5 % (13-45); MEAN CORPUSCULAR HEMOGLOBIN 30.3 pg (27.0-33.4); MEAN CORPUSCULAR HGB CONC 34.5 g/dL (32.0-36.0); MEAN CORPUSCULAR VOLUME 88 fl (80-97); MONOCYTES % (AUTO) 9.5 % (3-13); PLATELET COUNT 142 10^3/uL (150-450); RED BLOOD COUNT 2.79 10^6/uL (4.35-5.55); RED CELL DISTRIBUTION WIDTH 15.3 % (11.5-14.0); TOTAL CELLS COUNTED % (AUTO) 100 %; WHITE BLOOD COUNT 10.4 10^3/uL (4.0-10.5)
[2019-08-11 05:57] LABS: ANION GAP 13 (5-19); BLOOD UREA NITROGEN 51 mg/dL (7-20); CALCIUM 8.7 mg/dL (8.4-10.2); CARBON DIOXIDE 29 mmol/L (22-30); CHLORIDE 98 mmol/L (98-107); GLUCOSE 146 mg/dL (75-110); PHOSPHORUS 5.9 mg/dL (2.5-4.5); POTASSIUM 4.2 mmol/L (3.6-5.0)
[2019-08-11] MEDS: SEVELAMER HCL 800 MG TABLET PO SCH ×2 (09:18→17:31)
[2019-08-11] MEDS: AMLODIPINE BESYLATE 10 MG TABLET PO SCH (09:19)
[2019-08-11] MEDS: CARVEDILOL 12.5 MG TABLET PO SCH ×2 (09:19→21:51)
--- NOTE | 2019-08-11 14:08 | PDOC PROGRESS REPORT ---
Subjective Progress Note for:: 08/11/19 Subjective:: This is a 39-year-old male with a past medical history of ESRD on hemodialysis and hypertension who presented with increasing shortness of breath and cough. He was admitted on 08/06 for possible H CAP versus pulmonary congestion. He was started on IV antibiotics. Patient also had episodes of hematemesis and also developed hypoxia and was hypotensive hence was upgraded to the ICU. He was subsequently intubated and successfully extubated 2 days ago. He was also seen by surgery and had an EGD which did not show any active bleeding. It was suspected that he might have had a small Sharon-Thakkar tear. Patient was downgraded from the ICU last night. No acute event overnight. Upon encounter, he appears comfortable on room air at rest. He says his shortness of breath continue to improve. He says he still gets short of breath when he walks far. He denies chest pain. Reason For Visit: END STAGE RENAL DISEASE ON HEMODIALYSIS, Physical Exam Vital Signs: Temp Pulse Resp BP Pulse Ox 98.5 F 78 17 159/91 H 97 08/11/19 11:18 08/11/19 11:18 08/11/19 11:18 08/11/19 11:18 08/11/19 11:18 Intake & Output 08/10/19 08/11/19 08/12/19 06:59 06:59 06:59 Intake Total 879 2190 Output Total 295 2760 Balance 584 -570 Weight 255 lb 11.779 oz 246 lb 11.156 oz General appearance: PRESENT: no acute distress, well-developed, well-nourished Head exam: PRESENT: atraumatic, normocephalic Eye exam: PRESENT: conjunctiva pink, EOMI, PERRLA. ABSENT: scleral icterus Ear exam: PRESENT: normal external ear exam Mouth exam: PRESENT: moist, tongue midline Neck exam: ABSENT: carotid bruit, JVD, lymphadenopathy, thyromegaly Respiratory exam: PRESENT: rhonchi. ABSENT: rales, wheezes Cardiovascular exam: PRESENT: RRR. ABSENT: diastolic murmur, rubs, systolic murmur Pulses: PRESENT: normal dorsalis pedis pul GI/Abdominal exam: PRESENT: normal bowel sounds, soft. ABSENT: distended, gua rding, mass, organolmegaly, rebound, tenderness Rectal exam: PRESENT: deferred Extremities exam: PRESENT: full ROM. ABSENT: calf tenderness, clubbing, pedal edema Neurological exam: PRESENT: alert, awake, oriented to person, oriented to place, oriented to time, oriented to situation, CN II-XII grossly intact. ABSENT: marita r sensory deficit Results Laboratory Results: 08/11/19 04:43 08/11/19 04:43 08/11/19 08/11/19 04:43 04:43 WBC 10.4 RBC 2.79 L Hgb 8.4 L Hct 24.5 L MCV 88 MCH 30.3 MCHC 34.5 RDW 15.3 H Plt Count 142 L Seg Neutrophils % 70.0 Sodium 140.0 Potassium 4.2 Chloride 98 Carbon Dioxide 29 Anion Gap 13 BUN 51 H Creatinine 8.22 H Est GFR ( Amer) 9 L Glucose 146 H Calcium 8.7 Phosphorus 5.9 H Magnesium 2.0 08/06/19 08/06/19 08/06/19 13:05 13:05 13:05 Creatine Kinase 770 H Troponin I 0.052 NT-Pro-B Natriuret Pep 76992 H 08/06/19 08/07/19 22:46 05:24 Creatine Kinase Troponin I 0.073 0.084 NT-Pro-B Natriuret Pep Impressions: KUB X-Ray 08/07/19 15:19 IMPRESSION: Limited exam for placement of NG tube as described. Chest X-Ray 08/10/19 00:00 IMPRESSION: Improved but persistent patchy bilateral parenchymal opacities, likely representing pulmonary edema secondary to short-term interval improvement. Assessment and Plan - Diagnosis (1) Acute respiratory failure with hypoxia Is this a current diagnosis for this admission?: Yes Plan: Continue to HCAP and pulmonary congestion. Intubated and subsequently successfully extubated. Currently saturating well on room air. (2) GI bleeding Qualifiers: GI bleed type/associated pathology: gastrointestinal hemorrhage with hematemesis Qualified Code(s): K92.0 - Hematemesis Is this a current diagnosis for this admission?: Yes Plan: Patient was evaluated by surgery and had an EGD which did not identify active source of bleeding. Deemed that he may possibly had a small Sharon-Thakkar tear. He did receive 3 units of packed RBC. Hemoglobin has been stable. (3) Acute blood loss anemia Is this a current diagnosis for this admission?: Yes Plan: As per #2. (4) Hypertension Is this a current diagnosis for this admission?: Yes Plan: Continue current antihypertensive regimen. (5) End-stage renal disease on hemodialysis Is this a current diagnosis for this admission?: Yes Plan: Followed by nephrology. Getting inpatient dialysis. (6) Pneumonia Qualifiers: Pneumonia type: due to unspecified organism Laterality: unspecified laterality Lung location: unspecified part of lung Qualified Code(s): J18.9 - Pneumonia, unspecified organism Is this a current diagnosis for this admission?: Yes Plan: On azithromycin and Zosyn. - Time Time Spent with patient: 25-34 minutes
[2019-08-11] MEDS: ATORVASTATIN CALCIUM 10 MG TABLET PO SCH (21:52)
[2019-08-11] MEDS: AZITHROMYCIN 250 MG TABLET PO SCH (21:52)
[2019-08-12] MEDS: HYDRALAZINE HCL 50 MG TABLET PO SCH ×2 (01:36→09:39)
[2019-08-12] MEDS: PIPERACILLIN SODIUM/TAZOBACTAM 2.25 GM in NORMAL SALINE 50 ML IV SCH ×2 (01:38→09:37)
[2019-08-12] MEDS: PANTOPRAZOLE SODIUM 40 MG TABLET.DR PO SCH (05:39)
[2019-08-12] MEDS: CLONIDINE HCL 0.1 MG TABLET PO SCH ×2 (05:39→13:12)
[2019-08-12 08:47] VITALS: BP 157/89
--- NOTE | 2019-08-12 09:29 | RADIOLOGY REPORT (SQ) ---
EXAM DESCRIPTION: CHEST SINGLE VIEW COMPLETED DATE/TIME: 08/12/2019 7:19 am REASON FOR STUDY: reassess infiltrates COMPARISON: 08/10/2019 NUMBER OF VIEWS: One view. TECHNIQUE: Single frontal radiographic image of the chest acquired. LIMITATIONS: None. FINDINGS: LUNGS AND PLEURA: Diffuse interstitial pattern. No significant change. No large effusion s. MEDIASTINUM AND HEART: Stable heart size and mediastinal structures. SUPPORT DEVICES: Appropriate location without change. BONY STRUCTURES: No acute findings. HARDWARE: None. OTHER: No other significant finding. IMPRESSION: STABLE APPEARANCE OF THE CHEST. SUPPORT DEVICES UNCHANGED. Reading location - IP/workstation name: [email or web address]
[2019-08-12] MEDS: CARVEDILOL 12.5 MG TABLET PO SCH (09:40)
[2019-08-12] MEDS: AMLODIPINE BESYLATE 10 MG TABLET PO SCH (09:40)
[2019-08-12] MEDS: SEVELAMER HCL 800 MG TABLET PO SCH (09:40)
--- NOTE | 2019-08-12 18:05 | PDOC DISCHARGE SUMMARY ---
Impression - Admit/DC Date/PCP Admission Date/Primary Care Provider: 08/06/19 14:51 Discharge Date: 08/12/19 - Discharge Diagnosis (1) Acute respiratory failure with hypoxia Is this a current diagnosis for this admission?: Yes (2) GI bleeding Is this a current diagnosis for this admission?: Yes (3) Acute blood loss anemia Is this a current diagnosis for this admission?: Yes (4) Hypertension Is this a current diagnosis for this admission?: Yes (5) End-stage renal disease on hemodialysis Is this a current diagnosis for this admission?: Yes (6) Pneumonia Is this a current diagnosis for this admission?: Yes - Additional Information Resuscitation Status: Full Code Discharge Diet: As Tolerated, Other (Comments) Discharge Activity: Activity As Tolerated Referrals: [place] PAT MD [ACTIVE STAFF] - 08/13/19 (PATIENT WILL FOLLOW UP ON NEXT DIALYSIS DAY WHICH IS MONDAY 08/13.) Prescriptions: Hydralazine HCl [Apresoline 50 mg Tablet] 50 mg PO QID #40 tab Home Medications: Amlodipine Besylate [Norvasc 10 mg Tablet] 10 mg PO DAILY 08/06/19 Aspirin [Adult Low Dose Aspirin EC] 81 mg PO DAILY 08/06/19 Atorvastatin Calcium [Lipitor 10 mg Tablet] 10 mg PO QHS 08/06/19 Carvedilol 25 mg PO Q12 08/06/19 Clonidine HCl [Catapres 0.3 mg Tablet] 0.3 mg PO TID 08/06/19 Ipratropium/Albuterol Sulfate [Duoneb 3 ml Ampul] 3 ml NEB [id number] PRN 08/06/19 Isosorbide Mononitrate [Imdur 60 mg Tablet.er] 60 mg PO DAILY 08/06/19 Pantoprazole Sodium 40 mg PO BID 08/06/19 Sevelamer Carbonate [Renvela] 800 mg PO BID 08/06/19 Hydralazine HCl [Apresoline 50 mg Tablet] 50 mg PO QID #40 tab 08/12/19 History of Present Illiness History of Present Illness: Admitting hospitalist's H&P: BROOK LOMBARDI is a 39 year old male who presented to the ER with achievement of chest pain. Patient 39-year-old who has end-stage renal disease requiring hemodialysis and states he had a cough for the last 2 to 3 days. His chest pain is reproducible he denies any fever or other complaints. Patient did miss dialysis this past Tuesday was found to have an O2 sat of 88% on room air via EMS. Patient does not wear oxygen on a daily basis. Patient is noncompliant with medical regimen. No treatment prior to arrival all activities been aggravating factor. Hospital Course Hospital Course: This is a 39-year-old male with a past medical history of ESRD on hemodialysis and hypertension who presented with increasing shortness of breath and cough. He was admitted on 08/06 for possible H CAP versus pulmonary congestion. He was started on IV antibiotics. Patient also had episodes of hematemesis and also developed hypoxia and was hypotensive hence was upgraded to the ICU. He was subsequently intubated and successfully extubated 2 days ago. He was also seen by surgery and had an EGD which did not show any active bleeding. It was suspected that he might have had a small Sharon-Thakkar tear. Patient gradually and continued to improve on the floor. He completed IV antibiotics. He was also evaluated by nephrology and get inpatient dialysis. He returned to his baseline. He was weaned off O2. He was able to ambulate the hallways on room air without any desaturation or acute issues. His antihypertensive regimen was also increased. [facility]. Physical Exam Vital Signs: Temp Pulse Resp BP Pulse Ox 98.8 F 76 16 157/89 H 98 08/12/19 10:34 08/12/19 10:34 08/12/19 10:34 08/12/19 10:34 08/12/19 10:34 Intake & Output 08/11/19 08/12/19 08/13/19 06:59 06:59 06:59 Intake Total 2190 1672 480 Output Total 2760 Balance -570 1672 480 Weight 246 lb 11.156 oz 242 lb 15.19 oz General appearance: PRESENT: no acute distress, well-developed, well-nourished Head exam: PRESENT: atraumatic, normocephalic Eye exam: PRESENT: conjunctiva pink, EOMI, PERRLA. ABSENT: scleral icterus Ear exam: PRESENT: normal external ear exam Mouth exam: PRESENT: moist, tongue midline Neck exam: ABSENT: carotid bruit, JVD, lymphadenopathy, thyromegaly Respiratory exam: PRESENT: clear to auscultation jerald. ABSENT: rales, rhonchi, w heezes Cardiovascular exam: PRESENT: RRR. ABSENT: diastolic murmur, rubs, systolic murmur Pulses: PRESENT: normal dorsalis pedis pul GI/Abdominal exam: PRESENT: normal bowel sounds, soft. ABSENT: distended, guarding, mass, organolmegaly, rebound, tenderness Rectal exam: PRESENT: deferred Extremities exam: PRESENT: full ROM. ABSENT: calf tenderness, clubbing, pedal edema Neurological exam: PRESENT: alert, awake, oriented to person, oriented to place, oriented to time, oriented to situation, CN II-XII grossly intact. ABSENT: motor sensory deficit Results Laboratory Results: WBC 10.4 10^3/uL (4.0-10.5) 08/11/19 04:43 RBC 2.79 10^6/uL (4.35-5.55) L 08/11/19 04:43 Hgb 8.4 g/dL (13.5-17.0) L 08/11/19 04:43 Hct 24.5 % (37.9-51.0) L 08/11/19 04:43 MCV 88 fl (80-97) 08/11/19 04:43 MCH 30.3 pg (27.0-33.4) 08/11/19 04:43 MCHC 34.5 g/dL (32.0-36.0) 08/11/19 04:43 RDW 15.3 % (11.5-14.0) H 08/11/19 04:43 Plt Count 142 10^3/uL (150-450) L 08/11/19 04:43 Lymph % (Auto) 12.5 % (13-45) L 08/11/19 04:43 Quay % (Auto) 9.5 % (3-13) 08/11/19 04:43 Eos % (Auto) 7.2 % (0-6) H 08/11/19 04:43 Baso % (Auto) 0.8 % (0-2) 08/11/19 04:43 Reticulocyte # 0.049 10^6/uL (0.028-0.122) 08/07/19 05:24 Absolute Neuts (auto) 7.3 10^3/uL (1.7-8.2) 08/11/19 04:43 Absolute Lymphs (auto) 1.3 10^3/uL (0.5-4.7) 08/11/19 04:43 Absolute Monos (auto) 1.0 10^3/uL (0.1-1.4) 08/11/19 04:43 Absolute Eos (auto) 0.7 10^3/uL (0.0-0.6) H 08/11/19 04:43 Absolute Basos (auto) 0.1 10^3/uL (0.0-0.2) 08/11/19 04:43 Total Counted 100 08/06/19 22:46 Seg Neutrophils % 70.0 % (42-78) 08/11/19 04:43 Seg Neuts % (Manual) 87 % (42-78) H 08/06/19 22:46 Band Neutrophils % 1 % (3-5) L 08/06/19 22:46 Lymphocytes % (Manual) 5 % (13-45) L 08/06/19 22:46 Monocytes % (Manual) 7 % (3-13) 08/06/19 22:46 Eosinophils % (Manual) 0 % (0-6) 08/06/19 22:46 Basophils % (Manual) 0 % (0-2) 08/06/19 22:46 Abs Neuts (Manual) 21.0 10^3/uL (1.7-8.2) H 08/06/19 22:46 Abs Lymphs (Manual) 1.2 10^3/uL (0.5-4.7) 08/06/19 22:46 Abs Monocytes (Manual) 1.7 10^3/uL (0.1-1.4) H 08/06/19 22:46 Absolute Eos (Manual) 0.0 10^3/uL (0.0-0.6) 08/06/19 22:46 Abs Basophils (Manual) 0.0 10^3/uL (0.0-0.2) 08/06/19 22:46 Platelet Comment DECREASED 08/06/19 22:46 Poikilocytosis SLIGHT 08/06/19 22:46 Anisocytosis 1+ 08/06/19 22:46 Ovalocytes SLIGHT 08/06/19 22:46 Ryan Cells 1+ 08/06/19 13:05 Schistocytes SLIGHT 08/06/19 22:46 ESR 115 mm/hr (0-15) H 08/09/19 14:40 Retic Count (auto) 2.21 % (0.66-2.85) 08/07/19 05:24 PT 16.5 SEC (11.4-15.4) H 08/06/19 22:46 INR 1.32 08/06/19 22:46 APTT 34.1 SEC (23.5-35.8) 08/06/19 22:46 Carbonic Acid 1.11 mmol/L (1.05-1.35) 08/09/19 04:06 HCO3/H2CO3 Ratio 23:1 08/09/19 04:06 ABG pH 7.47 (7.35-7.45) H 08/09/19 04:06 ABG pCO2 37.0 mmHg (35-45) 08/09/19 04:06 ABG pO2 56.5 mmHg (80-100) L 08/09/19 04:06 ABG HCO3 26.1 mmol/L (20-24) H 08/09/19 04:06 ABG Total CO2 27.3 mmol/L (23-27) H 08/09/19 04:06 ABG O2 Saturation 91.2 % (94-98) L 08/09/19 04:06 ABG Base Excess 2.3 mmol/L 08/09/19 04:06 FiO2 50% 08/09/19 04:06 Sodium 140.0 mmol/L (137-145) 08/11/19 04:43 Potassium 4.2 mmol/L (3.6-5.0) 08/11/19 04:43 Chloride 98 mmol/L (98-107) 08/11/19 04:43 Carbon Dioxide 29 mmol/L (22-30) 08/11/19 04:43 Anion Gap 13 (5-19) 08/11/19 04:43 BUN 51 mg/dL (7-20) H 08/11/19 04:43 Creatinine 8.22 mg/dL (0.52-1.25) H 08/11/19 04:43 Est GFR ( Amer) 9 (>60) L 08/11/19 04:43 Est GFR (Non-Af Amer) Cancelled 08/10/19 04:04 Est GFR (MDRD) Non-Af 7 (>60) L 08/11/19 04:43 Glucose 146 mg/dL (75-110) H 08/11/19 04:43 POC Glucose 164 mg/dL (70-110) H 08/10/19 08:24 Lactic Acid 0.6 mmol/L (0.7-2.1) L 08/07/19 13:40 Calcium 8.7 mg/dL (8.4-10.2) 08/11/19 04:43 Phosphorus 5.9 mg/dL (2.5-4.5) H 08/11/19 04:43 Magnesium 2.0 mg/dL (1.6-2.3) 08/11/19 04:43 Iron 29.7 ug/dL (49-181) L 08/07/19 05:24 TIBC 208 ug/dL (250-450) L 08/07/19 05:24 % Saturation 14 % 08/07/19 05:24 Ferritin 1080.00 ng/mL (17.9-464.0) H 08/07/19 05:24 Total Bilirubin 1.7 mg/dL (0.2-1.3) H 08/08/19 07:00 Direct Bilirubin 0.9 mg/dL (0.0-0.4) H 08/08/19 07:00 Neonat Total Bilirubin Not Reportable 08/08/19 07:00 Neonat Direct Bilirubin Not Reportable 08/08/19 07:00 Neonat Indirect Bili Not Reportable 08/08/19 07:00 AST 16 U/L (17-59) L 08/08/19 07:00 ALT 12 U/L (<50) 08/08/19 07:00 Alkaline Phosphatase 47 U/L (38-126) 08/08/19 07:00 Ammonia < 8.7 umol/L (9-33) L 08/09/19 04:06 Creatine Kinase 770 U/L (55-170) H 08/06/19 13:05 Troponin I 0.084 ng/mL 08/07/19 05:24 C-Reactive Protein 190.5 mg/L (<10.0) H 08/09/19 14:40 NT-Pro-B Natriuret Pep 32944 pg/mL (<125) H 08/06/19 13:05 Total Protein 5.8 g/dL (6.3-8.2) L 08/08/19 07:00 Albumin 3.0 g/dL (3.5-5.0) L 08/08/19 07:00 Triglycerides 67 mg/dL (<150) 08/07/19 05:24 Lipase 97.6 U/L (23-300) 08/06/19 13:05 EGFR Cancelled 08/10/19 04:04 Vitamin B12 993.0 pg/mL (239-931) H 08/07/19 05:24 Folate 17.40 ng/mL (>2.76) 08/07/19 05:24 Time Trough Drawn 0700 08/08/19 07:00 Vancomycin Trough 18.9 ug/mL (5.0-20.0) 08/08/19 07:00 Blood Type AB POSITIVE 08/07/19 06:55 Blood Type Confirm AB POSITIVE 08/07/19 06:55 Antibody Screen NEGATIVE 08/07/19 06:55 Crossmatch See Detail 08/07/19 06:55 08/06/19 08/06/19 08/06/19 13:05 13:05 22:46 Troponin I 0.052 0.073 NT-Pro-B Natriuret Pep 44914 H 08/07/19 05:24 Troponin I 0.084 NT-Pro-B Natriuret Pep Impressions: Chest X-Ray 08/06/19 13:28 IMPRESSION: Acute patchy bilateral and basilar predominant parenchymal opacities. Differential considerations include pulmonary edema multifocal pneumonia. Chest X-Ray 08/07/19 00:00 IMPRESSION: Increasing bilateral alveolar airspace disease. Chest X-Ray 08/07/19 00:00 IMPRESSION: 1. Diffuse bilateral alveolar airspace disease unchanged from earlier film. 2. Endotracheal tube and central line have been added as described. KUB X-Ray 08/07/19 15:19 IMPRESSION: Limited exam for placement of NG tube as described. Chest X-Ray 08/08/19 06:00 IMPRESSION: 1. Unchanged diffuse bilateral alveolar opacities. 2. Tubes and lines as above. Chest X-Ray 08/09/19 06:00 IMPRESSION: NO CHANGE IN APPEARANCE OF THE CHEST. Chest X-Ray 08/10/19 00:00 IMPRESSION: Improved but persistent patchy bilateral parenchymal opacities, likely representing pulmonary edema secondary to short-term interval improvement. Chest X-Ray 08/12/19 07:00 IMPRESSION: STABLE APPEARANCE OF THE CHEST. SUPPORT DEVICES UNCHANGED. Stroke Is this a Stroke Patient?: No Acute Heart Failure - Is this a Heart Failure Patient?: No
[2019-08-14 16:37] LABS: ANTIMYELOPEROXIDASE (MPO) AB <9.0 U/mL (0.0-9.0); CYTOPLASMIC (C-ANCA) <1:20 titer (Neg:<1:20)
[2019-08-15 06:58] LABS: ATYPICAL PANCA <1:20 titer (Neg:<1:20)
== END 2019-08-12 13:42 | disposition home or self-care (01) | DRG 291 ==
LOC: ER 12:52 → EH 14:51 → ICU 21:25 → 4N 08-10 20:32
PROVIDERS: ADMIT Internal Medicine Critical Care Medicine; ATTEND Internal Medicine Critical Care Medicine
PROC: 5A1D70Z Performance of Urinary Filtration, Intermittent, Less than 6 Hours Per Day (ICD-10-PCS; 2019-08-06)
PROC: 0DB78ZX Excision of Stomach, Pylorus, Via Natural or Artificial Opening Endoscopic, Diagnostic (ICD-10-PCS; 2019-08-06)
PROC: 5A1945Z Respiratory Ventilation, 24-96 Consecutive Hours (ICD-10-PCS; principal; 2019-08-07)
PROC: 0BH17EZ Insertion of Endotracheal Airway into Trachea, Via Natural or Artificial Opening (ICD-10-PCS; 2019-08-07)
PROC: 30233N1 Transfusion of Nonautologous Red Blood Cells into Peripheral Vein, Percutaneous Approach (ICD-10-PCS; 2019-08-07)
PROC: 03HY32Z Insertion of Monitoring Device into Upper Artery, Percutaneous Approach (ICD-10-PCS; 2019-08-07)
PROC: 02HV33Z Insertion of Infusion Device into Superior Vena Cava, Percutaneous Approach (ICD-10-PCS; 2019-08-07)
PROC: 5A09457 Assistance with Respiratory Ventilation, 24-96 Consecutive Hours, Continuous Positive Airway Pressure (ICD-10-PCS; 2019-08-09)
DX: I13.2 Hypertensive heart and chronic kidney disease with heart failure and with stage 5 chronic kidney disease, or end stage renal disease (principal); N18.6 End stage renal disease; J18.9 Pneumonia, unspecified organism; J96.01 Acute respiratory failure with hypoxia; K29.01 Acute gastritis with bleeding; D62 Acute posthemorrhagic anemia; N25.81 Secondary hyperparathyroidism of renal origin; E11.22 Type 2 diabetes mellitus with diabetic chronic kidney disease; D63.1 Anemia in chronic kidney disease; E87.5 Hyperkalemia; E66.01 Morbid (severe) obesity due to excess calories; R07.1 Chest pain on breathing; I87.2 Venous insufficiency (chronic) (peripheral); I16.0 Hypertensive urgency; B96.81 Helicobacter pylori [H. pylori] as the cause of diseases classified elsewhere; Z79.899 Other long term (current) drug therapy; Z91.19 Patient's noncompliance with other medical treatment and regimen; Z99.2 Dependence on renal dialysis; Z91.11 Patient's noncompliance with dietary regimen; Z91.14 Patient's other noncompliance with medication regimen
CPT/HCPCS: 31500; 36415; 36430; 36620; 43239; 71045; 74018; 80048; 80053; 80202; 82140; 82550; 82607; 82728; 82746; 82803; 82962; 83516; 83540; 83550; 83605; 83690; 83735; 83880; 84100; 84478; 84484; 85025; 85027; 85045; 85610; 85652; 85730; 86140; 86256; 86850; 86900; 86901; 86920; 87040; 87070; 87205; 88305; 88342; 93005; 93010; 93306; 93931; 94002; 94003; 94640; 94660; 96374; 96375; 99285; 99291; 99292; C9113; J0171; J0456; J1200; J1610; J1644; J1956; J2250; J2310; J2405; J2543; J2597; J2704; J3010; J3370; J3490; J7060; J7620; P9016; Q5105

== ENCOUNTER 2019-09-28 18:22 | Outpatient (CLI) | payer MEDICARE, MEDICAID ==
[2019-09-28] MEDS ORDERED: ACETAMINOPHEN 325 MG TABLET PO PRN (18:50)
[2019-09-28] MEDS ORDERED: DIPHENHYDRAMINE HCL 25 MG CAPSULE PO PRN (18:50)
[2019-09-28] MEDS ORDERED: FUROSEMIDE INJ/PF 40 MG/4 ML SDV IV PRN (19:48)
[2019-09-28] MEDS: HYDRALAZINE HCL 50 MG TABLET PO SCH (21:09)
[2019-09-28] MEDS ORDERED: CLONIDINE HCL 0.1 MG TABLET PO SCH (22:00)
[2019-09-28] MEDS ORDERED: CARVEDILOL 12.5 MG TABLET PO SCH (22:00)
[2019-09-28] MEDS ORDERED: ATORVASTATIN CALCIUM 10 MG TABLET PO SCH (22:00)
[2019-09-29] MEDS: HYDRALAZINE HCL 50 MG TABLET PO SCH (02:02)
[2019-09-29 05:01] VITALS: BP 152/81
[2019-09-29] MEDS ORDERED: FUROSEMIDE INJ/PF 40 MG/4 ML SDV IV PRN (05:01)
== END 2019-09-29 05:45 | disposition home or self-care (01) ==
LOC: II 18:22 → 4N 18:22 → II 09-29 05:45
PROVIDERS: ATTEND Internal Medicine Nephrology
DX: N18.6 End stage renal disease (principal); D63.1 Anemia in chronic kidney disease
CPT/HCPCS: 86900; 86901; 36415; 36430; 86850; 86920; 96374; P9016; A9270 ×6; J1940

== ENCOUNTER 2019-10-09 11:27 | Day surgery (SDC) | payer MEDICAID, MEDICARE ==
[~2019-10-09 11:27] MED LIST changes: -ACETAMINOPHEN 325 MG TABLET PO PRN; +CEFAZOLIN 1 GM/D5W RTU 1 GM/50 ML RTUPB IV PRN; -DIPHENHYDRAMINE HCL 25 MG CAPSULE PO PRN; -FUROSEMIDE INJ/PF 20 MG/2 ML SDV IV PRN; +LIDOCAINE 2% INJ-PF (20 MG/ML) 2 ML AMPUL ONE; +METOCLOPRAMIDE HCL INJ/PF 10 MG/2 ML SDV ONE; +NEOSTIGMINE METHYLSULFATE 10 MG/10 ML VIAL ONE; +ONDANSETRON HCL INJ/PF 4 MG/2 ML SDV ONE; +PHENYLEPHRINE HCL INJ/PF 10 MG/1 ML SDV ONE; +ROCURONIUM BROMIDE INJ 50 MG/5 ML VIAL IV ONE; +SUCCINYLCHOLINE CHLORIDE INJ 200 MG/10 ML VIAL ONE
[2019-10-09] MEDS ORDERED: BUPIVACAINE HCL 0.25 % INJ/PF (2.5 MG/1 ML) 30 ML VIAL ONE (12:22)
[2019-10-09] MEDS ORDERED: LIDOCAINE 0.5% INJ-PF (5 MG/ML) 50 ML SDV ONE (12:22)
[2019-10-09] MEDS ORDERED: HEPARIN SOD (PORCINE) 1,000 UNIT/ML 1 ML VIAL ONE (12:22)
[2019-10-09] MEDS ORDERED: BACITRACIN INJ 50,000 UNIT VIAL ONE (12:23)
[2019-10-09] MEDS ORDERED: MIDAZOLAM 2 MG/2 ML INJ ONE (12:28)
[2019-10-09] MEDS ORDERED: PROPOFOL INJ 200 MG/20 ML VIAL IV ONE (12:28)
[2019-10-09] MEDS ORDERED: FENTANYL CITRATE INJ/PF 100 MCG/2 ML AMPUL ONE ×2 (12:28→14:48)
[2019-10-09 12:35] LABS: HEMATOCRIT 21.5 % (37.9-51.0); MEAN CORPUSCULAR HEMOGLOBIN 30.8 pg (27.0-33.4); MEAN CORPUSCULAR HGB CONC 34.2 g/dL (32.0-36.0); MEAN CORPUSCULAR VOLUME 90 fl (80-97); PLATELET COUNT 141 10^3/uL (150-450); RED BLOOD COUNT 2.38 10^6/uL (4.35-5.55); RED CELL DISTRIBUTION WIDTH 16.7 % (11.5-14.0)
[2019-10-09 12:46] LABS: HEMOGLOBIN 7.3 g/dL (13.5-17.0)
[2019-10-09 12:57] LABS: ANION GAP 15 (5-19); BLOOD UREA NITROGEN 89 mg/dL (7-20); CALCIUM 7.8 mg/dL (8.4-10.2); CARBON DIOXIDE 24 mmol/L (22-30); CHLORIDE 101 mmol/L (98-107); GLUCOSE 151 mg/dL (75-110); POTASSIUM 5.5 mmol/L (3.6-5.0)
[2019-10-09] MEDS ORDERED: CEFAZOLIN 1 GM/D5W RTU 1 GM/50 ML RTUPB IV ONE (13:52)
[2019-10-09] MEDS ORDERED: BACITRACIN INJ 50,000 UNIT VIAL IR ONE (14:26)
[2019-10-09] MEDS ORDERED: BUPIVACAINE HCL 0.25 % INJ/PF (2.5 MG/1 ML) 30 ML VIAL INJ ONE (14:26)
[2019-10-09] MEDS ORDERED: LIDOCAINE 0.5% INJ-PF (5 MG/ML) 50 ML SDV INJ ONE (14:27)
[2019-10-09] MEDS ORDERED: HEPARIN SOD (PORCINE) 1,000 UNIT/ML 1 ML VIAL IV ONE (14:31)
[2019-10-09] MEDS ORDERED: CEFAZOLIN INJ 1 GM VIAL ONE (14:57)
--- NOTE | 2019-10-09 16:23 | EKG REPORT ---
SEVERITY:- NORMAL ECG - SINUS RHYTHM : Confirmed by: Eve Art MD 09-Oct-2019 16:22:36
[2019-10-09] MEDS ORDERED: DIPHENHYDRAMINE HCL 50 MG/ML VIAL IV PRN (16:28)
[2019-10-09] MEDS ORDERED: MEPERIDINE HCL/PF INJ 25 MG/1 ML DISP.SYRIN IV PRN (16:28)
[2019-10-09] MEDS ORDERED: FENTANYL CITRATE INJ/PF 100 MCG/2 ML AMPUL IV PRN ×3 (16:28)
[2019-10-09] MEDS ORDERED: PROMETHAZINE HCL INJ 25 MG/1 ML VIAL IV PRN (16:28)
--- NOTE | 2019-10-09 16:50 | Discharge Summary ---
Discharge Summary (SDC) - Discharge Final Diagnosis: #1 end-stage renal disease on dialysis. 2. Obesity. 3. Diabetes mellitus type 2. 4. Anemia. 5. Hypertension. Date of Surgery: 10/09/19 Discharge Date: 10/09/19 Condition: Fair Treatment or Instructions: Discharge home [after recovery per ASU criteria]. Diet , [renal], diabetic,as tolerated, when fully awake advance as tolerated. Activities within moderation encouraged. Follow up in my office by appointment in about [1 week]. Call for appointment. Leave wounds [covered], [keep clean and dry, until office visit in 1 week]. Hold of on school/work [until evaluation in office]. Stressed need to the patient to attend hemodialysis tomorrow. Meds per med rec. Percocet. May shower [in 48 hrs], [try to keep operated area as dry as possible]. Prescriptions: Oxycodone HCl/Acetaminophen [Percocet 5-325 mg Tablet] 1 tab PO ASDIR PRN #15 tab PRN Reason: Oxycodone HCl/Acetaminophen [Percocet 5-325 mg Tablet] 1 tab PO ASDIR PRN #15 tab PRN Reason: Discharge Diet: Other (Comments) - Diabetic, renal. Respiratory Treatments at Home: Deep Breathing/Coughing Discharge Activity: Activity As Tolerated Report the Following to Your Physician Immediately: Shortness of Breath, Unusual Bleeding
[2019-10-09] MEDS ORDERED: ACETAMINOPHEN 1,000 MG/100 ML RTUPB IV ONE (16:51)
--- NOTE | 2019-10-09 16:54 | Operative Report ---
Operative Report DATE OF SURGERY: 10/09/19 PREOPERATIVE DIAGNOSIS: #1 end-stage renal disease on dialysis. 2. Obesity. 3. Diabetes mellitus type 2. 4. Anemia. 5. Hypertension. POSTOPERATIVE DIAGNOSIS: #1 end-stage renal disease on dialysis. 2. Obesity. 3. Diabetes mellitus type 2. 4. Anemia. 5. Hypertension. 6. Umbilical hernia. OPERATION: Open reduction and repair of umbilical hernia with mesh. SURGEON: TANIA CARSON DIRECTOR OF ACCOUNTS PAYABLE: None. ANESTHESIA: GA TISSUE REMOVED OR ALTERED: Not applicable. COMPLICATIONS: None. ESTIMATED BLOOD LOSS: 10 mL. INTRAOPERATIVE FINDINGS: Unexpected finding of a large umbilical hernia with a fairly small mary jo. This was appreciable on laparoscopy and photographs taken. Open repair is done with reduction and sustained reduction using composite mesh. Very robust closure accomplished. PROCEDURE: After obtaining informed consent and going over the procedure with [the patient and his family], he was taken to the operating room, he was anesthetized and intubated. The abdomen was prepped and draped in the usual sterile fashion. After the universal timeout, in which it was verified that the patient received IV antibiotic, the procedure commenced. This procedure was done as part of the intraoperative placement of a peritoneal dialysis catheter once the hernia was discovered on laparoscopy. A midline incision was made, curvilinear around the umbilicus about 5 cm in length. This is in reference to the marking of the abdominal wall bulge. Local anesthesia was infiltrated. Incision was made with a [15 blade scalpel]. Dissection now proceeded through the subcutaneous tissue down to the hernia sac and umbilical remnant. The umbilical remnant was transected about half a centimeter deep to the skin. The margins of the hernia were defined dissecting with cautery and scissor dissection as needed. The fascial margins were serially grasped with Edu clamps and elevated. This facilitated [retroperitoneal dissection]. This was done circumferentially for at least [4 cm, in all directions]. This was facilitated by by moving from each side of the table so as to get optimal access to the other. Hemostasis was now secured in this space using monopolar cautery. In order to facilitate fascial closure, a [unilateral component separation release] was done in a minimally invasive fashion. The dimensions of the fascial defect were measured out. It was enlarged somewhat to accommodate the mesh. A mesh was selected of the size, 6.4 cm, sufficient to cover the hernia defect with at least a 3 cm overlap. The mesh was now deployed flat in the preperitoneal space. It was anchored and kept slightly taut. In this way circumferential control of the mesh was accomplished. The wound was irrigated with antibiotic containing solution. . Fascial closure, was now accomplished using a continuous suture of 0 PDS. This was done with bites 5 mm apart and 5 mm away from the fascial edge. This conforms to best practices for reduction of hernia recurrence. The subcutaneous tissues under it when it were now irrigated with antibiotic containing solution. The subcutaneous tissues were closed using layers of interrupted 3-0 PDS sutures. The skin was closed using a continuous suture of 4-0 Monocryl. This was reinforced with Steri-Strips over benzoin and a sterile dressing applied. Post procedure of the repair was reinspected laparoscopically and found to be very satisfactory. Photographs taken. Copies dictated operative report to Dr. Tania Peterson MD
--- NOTE | 2019-10-09 16:58 | Operative Report ---
Operative Report DATE OF SURGERY: 10/09/19 PREOPERATIVE DIAGNOSIS: #1 end-stage renal disease on dialysis. 2. Obesity. 3. Diabetes mellitus type 2. 4. Anemia. 5. Hypertension. POSTOPERATIVE DIAGNOSIS: #1 end-stage renal disease on dialysis. 2. Obesity. 3. Diabetes mellitus type 2. 4. Anemia. 5. Hypertension. 6. Umbilical hernia. OPERATION: Laparoscopically guided insertion of a peritoneal dialysis catheter. Open repair of incidentally found umbilical hernia was done in the same setting. Dictated separately. SURGEON: TANIA CARSON MINE SHIFTER: None. ANESTHESIA: GA TISSUE REMOVED OR ALTERED: Not applicable. COMPLICATIONS: None. ESTIMATED BLOOD LOSS: 10 mL. INTRAOPERATIVE FINDINGS: Of incidental finding of umbilical hernia which was repaired, dictated separately. Of quite impressive fat deposition in the peritoneal space. The pelvis was apparently free of omentum. The patient did have unusual veins in the deep subcutaneous tissue which bled on opening the subcutaneous tissue for peritoneal dialysis insertion. These were controlled with suture ligatures. They recommended on because they are unusual in this location. No other findings such as venous hypertension noted. Satisfactory position of the catheter with the tip well down in the pelvis. Easy ingress of a liter of heparinized solution and egress of very clear fluid 800 mils. PROCEDURE: After obtaining informed consent and going over the procedure with [the patient and his family], he was taken to the operating room, [he was] anesthetized and intubated. The abdomen was prepped and draped in the usual sterile fashion. After the universal timeout, in which it was verified that the patient received IV antibiotic, the procedure commenced. The topographical location for the peritoneal dialysis catheter was sketched by applying it to the anterior abdominal wall. The reference point was the pubic symphysis the coil of the catheter, just beneath this level. In this way the position for the cuffs and the external catheter exit were ascertained and marked. The catheter was now replaced in antibiotic containing solution. An entry into the abdomen was sketched just to the right of the midline and transversely in the epigastrium. Local anesthesia was infiltrated. A 2 cm, transverse incision was made with a [15 blade scalpel]. Dissection now proceeded to the medial aspect of the right rectus sheath. This was opened and the muscle gently reflected. The posterior rectus sheath and peritoneum were opened between hemostats and entry was gained to the peritoneal cavity. This allowed introduction of a 5 mm laparoscopic port. The abdomen was now i nsufflated with carbon dioxide up to a maximum pressure of 12 mm of mercury. The camera was inserted and a good view gained of the abdomen. Photographs were taken. Local anesthesia was now infiltrated and an incision made in respect to the curve of the catheter. A 2 cm transverse incision was made at this point and dissection proceeded down to the rectus sheath. During this dissection unusual bleeding was encountered from large veins crossing this area. These were controlled with hemostats, fully divided and suture ligated with 3-0 PDS. The anterior rectus sheath was opened. This was opened and a Veress needle on a reducing sleeve were were now introduced through the rectus muscle and the manipulated down to about 4 cm inferior to the incision. The peritoneum was now entered and the Veress needle removed. The internal cannula was now placed under direct vision. A swan neck peritoneal dialysis catheter was now placed on a stylette. Great care was taken to keep the orientation in reference to the white line on the catheter. It was now inserted into the peritoneal cavity under direct vision, through the introducer. As the catheter entered the abdomen the stylette was slowly withdrawn allowing it to assume its normal orientation and shape within the peritoneal cavity. Both the stylet and introducer were removed so as to place the internal cuff about 3 cm from the ent ry point of the peritoneal cavity, and within the rectus sheath. This was verified with respect to the incision. The external curve of the catheter was allowed to form precisely at the level of the incision. Externally the catheter was affixed to a Talha stylette which was now used to tunnel the catheter in the subcutaneous tissues to its exit site where it was now used to exit the skin. The catheter orientation and position and, particularly the 2 cuffs of the catheter were verified. Once this was done the external portion of the catheter was affixed to a Leur lock adapter and connec ann to a sterile IV tubing. This allowed introduction of 1 L of heparinized saline into the peritoneal cavity via the catheter. This occurred with brisk and free flow of fluid into the peritoneal cavity. Once the entire liter had been infused, the bag was now placed beneath the level of the patient and very satisfactory outflow was observed. With this in place, the camera and the catheter were removed and abdomen desufflated. The subcutaneous tissue in each incision was closed with interrupted 3-0 PDS. The skin in each incision was closed using interrupted and continuous sutures of 4-0 Monocryl. Once about 800 mils of the Infusaid had been passively removed from the abdomen, the catheter was flushed with 10 mL of heparinized solution and capped. The bio a patch was applied at the exit site. Benzoin was applied and Steri-Strips used to reinforce each of the wounds. It was also used to help anchor the Biopatch. It was also used to anchor the main catheter so that any external pressure would not dislodge the catheter. Dry gauze and tape applied and the procedure concluded.
[2019-10-09] MEDS ORDERED: OXYCODONE-ACETAMINOPHEN 5-325 MG TABLET ONE (17:28)
[2019-10-09 19:15] VITALS: BP 152/72
== END 2019-10-09 19:22 | disposition home or self-care (01) ==
LOC: OROUT 11:27
PROVIDERS: ATTEND Surgery
DX: I12.0 Hypertensive chronic kidney disease with stage 5 chronic kidney disease or end stage renal disease (principal); E11.22 Type 2 diabetes mellitus with diabetic chronic kidney disease; N18.6 End stage renal disease; Z99.2 Dependence on renal dialysis; K42.9 Umbilical hernia without obstruction or gangrene; D64.9 Anemia, unspecified; Z79.51 Long term (current) use of inhaled steroids; E66.9 Obesity, unspecified; Z87.891 Personal history of nicotine dependence; Z79.899 Other long term (current) drug therapy; Z86.79 Personal history of other diseases of the circulatory system
CPT/HCPCS: 86900; 86901; 36415; 36430; 86850; 85027; 80048; 86920; 93005; 93010; 00790; 49587; 49324; C1781; P9016; J2250; J3490 ×4; J0690 ×2; J3010; J1644; J2765; J2710; A9270; J2370; J0330; J2405; J2704; J1642; J0131; 790